=== PATIENT | female | born 1975 | race Caucasian/White ===

== ENCOUNTER → 2016-06-09 | Outpatient (CLI) | payer BC ==
--- NOTE | 2016-06-10 13:35 | ELECTROENCEPHALOGRAPH REPORT ---
REFERRING: Dr. Zaldivar. CLINICAL DIAGNOSIS: Episodic blurred vision, abnormal gait, dizziness and tremor. EEG DIAGNOSIS: Essentially normal during wakefulness. DESCRIPTION OF TRACING: This EEG was done in the laboratory and was of good technical quality. A simultaneous video analysis of patient movement and behavior was obtained. Photic stimulation was performed. Hyperventilation was not. Drowsiness and light sleep were not recorded. Under these conditions, there is evidence for normal appearing background rhythm in the alpha range of up to 10-11 Hz of maximum frequency and 30 microvolts of maximum amplitude. This is maximum in posterior head regions and bilaterally symmetrical. Polymorphic mid frequency theta activity is seen over all head regions without clear focal or regional predominance. Anterior head region maximum bilaterally symmetrical low voltage fast activity in the beta range is present. Photic stimulation provokes a modest driving response without a photomyogenic or photoparoxysmal component. At no time during the waking tracing is there evidence for potentially epileptogenic activity in the form of polyspike or spike wave bursts, focal sharp waves or focal spikes. INTERPRETATION: This electroencephalogram is essentially normal during wakefulness without evidence for focal or generalized encephalopathy and without evidence for potentially epileptogenic activity. MTDD
== END | disposition home or self-care (01) ==
LOC: C.NEUR 14:09
PROVIDERS: ATTEND Family Medicine
DX: H53.8 Other visual disturbances (principal); R26.9 Unspecified abnormalities of gait and mobility

== ENCOUNTER → 2016-10-03 | Outpatient (CLI) | payer BC ==
[2016-10-03 10:08] LABS: C-REACTIVE PROTEIN 1.12 mg/dl (0-0.29); FERRITIN 28.8 ng/ml (8.0-388.0); RHEUMATOID FACTOR < 10.0 U/mL (0-15)
[2016-10-08 14:33] LABS: ALBUMIN 4.2 G/DL (3.8-4.8); ANTI-SS-A <1.0 NEG AI (<1.0 NEG); ANTI-SS-B <1.0 NEG AI (<1.0 NEG); COLLECTION SAMPLE Venous; GAMMA GLOBULIN 0.8 G/DL (0.8-1.7); LEAD BLOOD <1 mcg/dL (<5); VITAMIN B6** TC 926 9.9 ng/mL (2.1-21.7)
--- NOTE | 2016-11-20 07:33 | CODING QUERY MEDICAL NECESSITY ---
SUPPORTING DIAGNOSIS NEEDED A supporting diagnosis is required for the test/procedure performed on this patient in order for us to be reimbursed by the patient's insurance. Please provide a supporting diagnosis for the following test/procedure listed below next to the test name along with your signature. *If there is no additional diagnosis for this patient that would support the following test/procedure please document that below next to the test/procedure. Test(s)/Procedure(s) that require a supporting diagnosis: * VITAMIN B6 DIAGNOSIS: Provider Signature: Date: Thank you Elizabeth Yen [facility] [employer] Once completed, please kindly fax back to [phone] For questions please call [phone]
== END | disposition home or self-care (01) ==
LOC: C.LAB 06:55
PROVIDERS: ATTEND Psychiatry & Neurology Neurology
DX: M79.1 Myalgia (principal); R25.1 Tremor, unspecified; R53.83 Other fatigue; R20.2 Paresthesia of skin; R26.9 Unspecified abnormalities of gait and mobility; G62.9 Polyneuropathy, unspecified

== ENCOUNTER → 2016-10-27 | Outpatient (CLI) | payer BC ==
--- NOTE | 2016-10-27 09:45 | DIAGNOSTIC IMAGING REPORT ---
CHEST 2 VIEWS ROUTINE CLINICAL HISTORY: M79.1 DmqdaktW51.83 PbktiqwY35.2 YtudvgtgyduY87 JlfmcX23.0 Bleed dyspnea COMPARISON STUDY: 10/25/2013 FINDINGS: The bones soft tissues and hemidiaphragms are normal. The cardiomediastinal silhouette is normal. The lungs are clear. The pulmonary vasculature is normal. IMPRESSION: Negative chest. Electronically signed by: Michael Curry M.D. 10/27/2016 9:44 AM Dictated Date/Time: 10/27/2016 9:44 AM
[2016-10-27 12:22] LABS: URINE APPEARANCE CLEAR (CLEAR); URINE BILIRUBIN NEG (NEG); URINE COLOR YELLOW; URINE EPITHELIAL CELL AUTO >30 /lpf (0-5); URINE NITRITE NEG (NEG); URINE PH 5.5 (4.5-7.5); URINE SPECIFIC GRAVITY 1.016 (1.000-1.030); UROBILINOGEN NEG (NEG)
[2016-10-27 12:31] LABS: MANUAL MICROSCOPIC REQUIRED? NO; REVIEW REQ? NO
[2016-10-31 14:38] LABS: ANTI-CENTROMERE AB <1.0 NEG AI (<1.0 NEG); ANTI-SS-A <1.0 NEG AI (<1.0 NEG); ANTI-SS-B <1.0 NEG AI (<1.0 NEG); DNA ds CRITHIDIA NEGATIVE (NEGATIVE); MYELOPEROXIDASE AB <1.0 AI (<1.0); Sm Antibody <1.0 NEG AI (<1.0 NEG)
== END | disposition home or self-care (01) ==
LOC: C.RAD1850 09:34
PROVIDERS: ATTEND Internal Medicine Rheumatology
DX: M79.1 Myalgia (principal); R53.83 Other fatigue; R20.2 Paresthesia of skin; R40.0 Somnolence; R05 Cough; R76.8 Other specified abnormal immunological findings in serum

== ENCOUNTER → 2016-10-29 | Outpatient (CLI) | payer BC ==
--- NOTE | 2016-10-29 12:10 | EEG Procedure Note ---
EEG Procedure Note Date of Service Oct 29, 2016. Start / End Times Start Time: 10:40 AM End Time: 11:01 AM Referring Physician Caroline Joseph History This is a 41-year-old female with a syncopal event. EEG for further evaluation of possible seizure etiology. Description This is a 21 electrode EEG with a single channel dedicated to limited EKG. The electrodes were placed in accordance with the International 10-20 system. At the start of the recording the patient was in an awake state. Background was well organized and composed of symmetric mixed alpha and beta frequencies. There was a symmetric well-formed moderate amplitude 10-11 Hz posterior dominant rhythm that was reactive to eye opening and closure. Hyperventilation was not done. Intermittent photic stimulation at various frequencies produced no abnormalities. Drowsiness was indicated by slowing of the background rhythm and loss of muscle artifact. There was no sleep transients. Interpretation This is a normal awake and drowsy routine EEG. There was no electrographic seizures or epileptiform discharges. Clinical Correlation A normal EEG does not rule out epilepsy if there is a strong clinical suspicion.
== END | disposition home or self-care (01) ==
LOC: C.NEUR 10:30
PROVIDERS: ATTEND Psychiatry & Neurology Neurology
DX: R55 Syncope and collapse (principal)

== ENCOUNTER → 2016-12-04 | Outpatient (CLI) | payer BC ==
[~2016-12-04] MED LIST: GADAVIST IV PRN
--- NOTE | 2016-12-04 12:17 | DIAGNOSTIC IMAGING REPORT ---
BRAIN COMBO FOR IAC CLINICAL HISTORY: 41 years-old Female presenting with dizziness, attention to the internal auditory canals. TECHNIQUE: Multisequence, multiplanar MR imaging of the brain was performed before and after the administration of intravenous contrast. IV contrast: 7.5 milliliters of Gadavist. COMPARISON: None. FINDINGS: Ventricles and sulci normal in size. Brain parenchyma normal in appearance with preserved cabral-white differentiation. No mass effect or midline shift. No hemorrhage or acute territorial infarct. No extra-axial fluid collection. No masslike thickening of the transiting nerves within the internal auditory canals. Normal signal intensity of the inner ears structures. No abnormal enhancement on postcontrast imaging. T2 skull base flow voids preserved. Paranasal sinuses and mastoid air cells clear. Calvarium intact. IMPRESSION: No acute intracranial abnormality. No abnormal enhancement. Normal internal auditory canals. Electronically signed by: Miguel Chawla M.D. 12/04/2016 12:15 PM Dictated Date/Time: 12/04/2016 12:10 PM
== END | disposition home or self-care (01) ==
LOC: C.MRI 10:34
PROVIDERS: ATTEND Psychiatry & Neurology Neurology
DX: R42 Dizziness and giddiness (principal)

== ENCOUNTER → 2016-12-25 | Outpatient (CLI) | payer BC ==
--- NOTE | 2016-12-25 12:16 | DIAGNOSTIC IMAGING REPORT ---
MODIFIED BARIUM SWALLOW CLINICAL HISTORY: Dysphagia. COMPARISON STUDY: No previous studies for comparison. Fluoroscopy time: 1.9 minutes. FINDINGS: The swallowing mechanism was intact within liquids, nectar thick liquids, pudding and crackers with paste. No tracheal aspiration was identified. Laryngeal elevation and epiglottic inversion were normal. IMPRESSION: 1. Intact swallowing mechanism. No tracheal aspiration. 2. Full recommendations by speech pathology to follow. Electronically signed by: Keaton Wells M.D. 12/25/2016 12:15 PM Dictated Date/Time: 12/25/2016 12:10 PM
--- NOTE | 2016-12-26 15:31 | SWALLOWING EVALUATION ---
REFERRING SPEECH PATHOLOGIST: n/a HISTORY: This 41 year-old female was referred for a VFSS at [facility] in order to address c/o persistent globus sensation. The patient has a PMH significant for GERD (since age 17), hyperlipidemia, hypertension, dizziness and a recently diagnosed "connective tissue disease". The patient reports her medication regimen for treating her GERD includes 40 mg Omeprazole and that Zantac was recently added. Despite the medication increase, the patient reports having more NEGRO symptoms. She states that a recent visit to otolaryngology resulted in findings of redness and edema of the throat and vocal folds. Currently the patient's diet level is regular. PROCEDURE: The patient was seen in the Radiology Department of [facility] for the VFSS. Cursory examination of the oral cavity revealed adequate dentition. Movement of the articulators was WNL. The patient was seated upright on a stool and was viewed in both the Anterior-Posterior (A-P) and Lateral planes. Volitional phonation exercises completed in the A-P plane revealed bilateral vocal fold movement and vocal intensity within functional limits. In the lateral plane, the patient was given the following boluses: 1 tsp. thin liquid barium x 2, single swallow thin liquid barium self-presented from a cup, sequential swallows of thin liquid barium self-presented from a cup, 1 tsp. nectar-thick liquid barium, single swallow nectar-thick liquid barium self-presented from a cup, 1 tsp. barium pudding, and 1 club cracker with barium pudding. The patient was then repositioned into the A-P plane and 1 tsp. barium pudding. RESULTS: Oral Stage: No interlabial bolus escape. Lingual control during oral bolus hold, bolus preparation and bolus transport were all WNL. There was no oral bolus retention after the swallow. Initiation of the pharyngeal swallow occurred when the bolus head was at the posterior angle of the ramus. Oral stage of swallow is WNL. Pharyngeal Stage: Velar elevation, laryngeal elevation, anterior hyoid excursion, epiglottic inversion and laryngeal vestibular closure were WNL. Pharyngeal stripping wave and pharyngeal contraction were complete. There was complete distention and duration of PES opening. Tongue base contraction was complete and there was no pharyngeal residue after the swallow. There was no penetration or aspiration during this study and the pharyngeal stage of the swallow is considered to be WNL. Esophageal Stage: No bolus retention as the pudding transited the esophagus. SUMMARY/RECOMMENDATIONS: This patient presents with normal oral-pharyngeal swallow function; HOWEVER she does report persistent and uncomfortable s/s GERD. The following is recommended: 1. Slippery diet as tolerated: choose moist, loose, slippery foods; avoid dry, thick, doughy foods; take medications in a carrier 2. Compensatory Strategies: consider choosing foods and liquids that promote alkalinity and decrease inflammation in the body; avoid icy cold beverages; remain upright 15-30 minutes after meals; keep head of bed elevated AT LEAST 30-degrees at ALL times 3. Consideration of continued f/u with gastroenterology for unresolved GERD. A summary of the results and recommendations was discussed with the patient immediately following the study and she verbalized understanding. Thank you for referral of this patient. Please contact me at if any additional information is needed.
== END | disposition home or self-care (01) ==
LOC: C.RAD 10:46
PROVIDERS: ATTEND Physician Assistant
DX: K21.9 Gastro-esophageal reflux disease without esophagitis (principal); R13.10 Dysphagia, unspecified; Z87.891 Personal history of nicotine dependence

== ENCOUNTER → 2017-01-23 | Outpatient (CLI) | payer BC ==
--- NOTE | 2017-01-23 08:50 | DIAGNOSTIC IMAGING REPORT ---
GI SERIES W/AIR ROUTINE CLINICAL HISTORY: DYSPHAGIA COMPARISON STUDY: None. FLUOROSCOPY TIME: 2.5 minutes. FINDINGS: Esophageal motility was normal. No esophageal mass or stricture was identified. No hiatal hernia was identified. Gastric fold pattern was normal. No gastroesophageal reflux was elicited. Duodenum was unremarkable. Ligament of Treitz was normal position. IMPRESSION: Unremarkable double contrast upper GI series. Electronically signed by: Keaton Wells M.D. 01/23/2017 8:48 AM Dictated Date/Time: 01/23/2017 8:37 AM
== END | disposition home or self-care (01) ==
LOC: C.RAD 08:04
PROVIDERS: ATTEND Internal Medicine Gastroenterology
DX: R13.10 Dysphagia, unspecified (principal)

== ENCOUNTER 2019-04-19 17:33 | Observation (INO) ==
[2019-04-19] MEDS ORDERED: SODIUM CHLORIDE 0.9% 1000ML 1,000 ML IV SCH (17:59)
[2019-04-19] MEDS ORDERED: ONDANSETRON INJ 2 MG/ML 2 ML VIAL IV STA (18:50)
[2019-04-19] MEDS ORDERED: MoRPHine SULFATE 10 MG/ML CARP/VIAL IV STA (18:50)
[2019-04-19] MEDS ORDERED: MoRPHine SULFATE 4 MG/ML 1 ML CARP\\VIAL ONE (18:53)
[2019-04-19] MEDS ORDERED: MoRPHine SULFATE 2 MG/ML CARP ONE (18:53)
[2019-04-19 19:07] LABS: Basophils # (auto) 0.01 K/uL (0-0.2); Basophils % (auto) 0.1 %; Eosinophils # (auto) 0.14 K/uL (0-0.5); Eosinophils % (auto) 1.8 %; Hematocrit (blood only) 40.7 % (37-47); Hemoglobin 13.9 g/dL (12.0-16.0); Immature Granulocytes # (auto) 0.02 K/uL (0.00-0.02); Immature Granulocytes % (auto) 0.3 %; Lymphocytes # (auto) 1.53 K/uL (1.2-3.4); Lymphocytes % (auto) 19.5 %; Mean Corpuscular Hemoglobin 27.9 pg (25-34); Mean Corpuscular Hgb Conc 34.2 g/dL (32-36); Mean Corpuscular Volume 81.6 fL (80-100); Mean Platelet Volume 10.7 fL (7.4-10.4); Monocytes # (auto) 0.48 K/uL (0.11-0.59); Monocytes % (auto) 6.1 %; Neutrophils # (auto) 5.67 K/uL (1.4-6.5); Neutrophils % (auto) 72.2 %; Platelet Count 247 K/uL (130-400); RDW Coefficient of Variation 13.2 % (11.5-14.5); RDW Standard Deviation 39.5 fL (36.4-46.3); Red Blood Count 4.99 M/uL (4.2-5.4); White Blood Count 7.85 K/uL (4.8-10.8)
[2019-04-19 19:16] LABS: Albumin Level 4.1 gm/dl (3.4-5.0); BUN Creatinine Ratio 10.7 (10-20); Calcium 9.3 mg/dl (8.5-10.1); Creatinine Clr Calc Pharmacy 95.5 ml/min; Est GFR (African American) 117.2; Est GFR (Non-African American) 101.1; Potassium 3.4 mmol/L (3.5-5.1)
[2019-04-19 19:19] LABS: Albumin Globulin Ratio 1.1 (0.9-2); Bilirubin,Total 0.6 mg/dl (0.2-1); Globulin 3.6 gm/dl (2.5-4.0); Total Protein 7.7 gm/dl (6.4-8.2)
[2019-04-19 19:22] LABS: Pregnancy Test, Serum Negative (Negative)
[2019-04-19] MEDS ORDERED: IOVERSOL 100ml IV PRN (20:03)
--- NOTE | 2019-04-19 20:30 | CT Scan Report ---
CT OF THE ABDOMEN AND PELVIS WITH CONTRAST CLINICAL HISTORY: Transaminitis with epigastric/right upper quadrant abdominal pain. COMPARISON STUDY: CT of the abdomen and pelvis October 11, 2018. TECHNIQUE: Following IV administration of 93 mL of Optiray-320, axial images of the abdomen and pelvi s were obtained from the lung bases to the proximal femurs. Images were reviewed in the axial, sagitt al, and coronal planes. IV contrast was administered without complication. Automated exposure contro l was utilized for the study. A dose lowering technique was utilized adhering to the principles of A RAYA. CT DOSE: 612.49 mGy.cm FINDINGS: Lung bases are unremarkable. The liver, spleen, adrenal glands, kidneys and pancreas are un remarkable. There is no biliary or pancreatic ductal dilatation. Slight focal wall thickening of the gallbladder fundus is nonspecific but may reflect adenomyomatosis. The gallbladder is not distended. A mildly enlarged portacaval lymph node measures 1.3 cm in short axis diameter. There is no hydroneph rosis. The appendix is surgically absent. No pelvic lymphadenopathy is present. The uterus is surgica lly absent. The ovaries are not enlarged. There is no ascites. There are no suspicious osseous lesion s. IMPRESSION: 1. No acute process within the abdomen or pelvis. 2. Mildly enlarged portacaval lymph node, a nonspecific finding. 3. No bowel obstruction. 4. No biliary or pancreatic ductal dilatation. Electronically signed by: Keaton Wells M.D. 04/19/2019 8:28 PM
[2019-04-19] MEDS ORDERED: POTASSIUM CHLORIDE 20 MEQ TABCR PO STA (20:47)
[2019-04-19 20:57] LABS: Magnesium 2.2 mg/dl (1.8-2.4)
--- NOTE | 2019-04-19 21:16 | Emergency Department Note ---
Entered by Lizbet Riley acting as a scribe for Lionel Ray DO History of Present Illness General Chief complaint: Abdominal Pain Stated complaint: STOMACH PAIN,REFERRED BY GASTRO DOCTOR Source: patient History of Present Illness Onset (ago): day(s) 4 Location: abdomen Severity: severe (states pain is "similar to appendicitis" ) Pain Consistency: + intermittent Maximum Pain Intensity: 10 Relieved By: + none Exacerbated By: + eating Associated symptoms: + denies other symptoms (dysuria ) and + other (nausea) The patient is a 44 year old female with a history of HTN and hyperlipidemia who presents to the Emergency Room with complaints of abdominal pain. The patient states that she has been experiencing intermittent RUQ abdominal pain for awhile but that it began to become extreme 4 days ago associated with nausea. The patient explains that her current pain feels similar to appendicitis and that it is exacerbated with PO intake. She was seen today for the same by Dr. Xavier, [employer] Coordinator who gave her Zofran and recommended that she have a CT done in the ED. Of note, she reports that she got recent blood work and an US that showed "sludge" in her gallbladder. Additionally, she was told that her liver enzymes were in the 500s and too high. The patient's LNMP was in 2012. She denies dysuria and offers no additional concerns at this time. Home Medications Home Medications Medication Instructions Recorded Confirmed Type cholecalciferol (vitamin D3) 2,000 units PO QAM 08/27/18 04/19/19 History [Vitamin D3] coQ10 (ubiquinol) 200 mg PO QAM 08/27/18 04/19/19 History hydrochlorothiazide 25 mg PO QAM 08/27/18 04/19/19 History hydroxychloroquine 400 mg PO QAM 08/27/18 04/19/19 History metoprolol succinate 100 mg PO QAM 08/27/18 04/19/19 History omeprazole 40 mg PO HS 10/11/18 04/19/19 History amitriptyline 10 mg PO HS 04/19/19 04/19/19 History azathioprine 25 mg PO QAM 04/19/19 04/19/19 History Allergies Allergy/AdvReac Type Severity Reaction Status Date / Time hydrocodone Allergy Intermediate Confusion Verified 04/19/19 18:19 [From Lorcet (hydrocodone)] nitrofurantoin Allergy Intermediate Chest Pain Verified 04/19/19 18:19 [From Macrobid] tramadol Allergy Mild Itchiness Verified 04/19/19 18:19 Past Med/Surg History Medical History Hypertension (Chronic) Surgical History History of esophagogastroduodenoscopy (EGD) Hx of appendectomy Hx of hysterectomy Family History Other Cancer Diabetes Heart disease Hypertension Social History Preferred Language: Mongolian Feels Safe at Home: Yes Smoking Status: Former smoker Review of Systems See HPI for pertinent positives & negatives. and A total of 10 systems reviewed and were otherwise negative Physical Exam Vital Signs Vital Signs - 24 hr 04/19/19 17:36 04/19/19 19:02 04/19/19 19:33 Temperature 36.8 C Temperature Source Oral Pulse Rate 81 Pulse Rate [Finger] 71 Respiratory Rate 20 18 Respiratory Effort / Characteristics Non-Labored Spontaneous Non-Labored Spontaneous Respiratory Depth Normal Normal Blood Pressure 124/84 Blood Pressure [Right Arm] 130/87 Blood Pressure Mean 97 Blood Pressure Mean [Right Arm] 101 Blood Pressure Position Sitting Pulse Oximetry 99 97 Oxygen Delivery Method Room Air Room Air Room Air Sepsis Recent Fever Within 48 Hours No Sepsis Action Taken by Nursing No Action Required 04/19/19 21:00 Temperature Temperature Source Pulse Rate Pulse Rate [Finger] 73 Respiratory Rate 18 Respiratory Effort / Characteristics Respiratory Depth Normal Blood Pressure Blood Pressure [Right Arm] 132/88 Blood Pressure Mean Blood Pressure Mean [Right Arm] 102 Blood Pressure Position Pulse Oximetry 98 Oxygen Delivery Method Room Air Sepsis Recent Fever Within 48 Hours Sepsis Action Taken by Nursing GENERAL: alert, well nourished, sitting up in bed, holding RUQ, moderate distress, non-toxic EYE EXAM: normal conjunctiva OROPHARYNX: no exudate, no erythema, lips, buccal mucosa, and tongue normal and mucous membranes are moist NECK: supple, no nuchal rigidity, no adenopathy, non-tender LUNGS: Clear to auscultation. Normal chest wall mechanics HEART: no murmurs, S1 normal and S2 normal ABDOMEN: abdomen soft, tenderness to palpation RUQ, normo-active bowel sounds, no masses, no rebound or guarding. BACK: Back is symmetrical on inspection and there is no deformity, no midline tenderness, no CVA tenderness. SKIN: no rashes and no bruising UPPER EXTREMITIES: upper extremities are grossly normal. LOWER EXTREMITIES: No pitting edema. NEURO EXAM: Normal sensorium, cranial nerves II-XII grossly intact, normal speech, no gross weakness of arms, no gross weakness of legs. Course Course ED COURSE: Vital signs were reviewed and showed hypertension. The patients medical record was reviewed The above diagnostic studies were performed and reviewed. ED treatments and interventions as stated above. 1743: The patient was evaluated in room A09. A complete history and physical examination was performed. 1851: I checked on the patient and updated her. She states she can have morphine. 2025: I re-evaluated the patient and updated her. 2114: Upon reevaluation, the patient is resting.I discussed my findings with the patient and he understands and agrees with the treatment plan. Based on the patients age, coexisting illnesses, exam and lab findings the dec ision to treat as an inpatient was made. The patient remained stable while under my care. The patient will be evaluated for further management by Dr. Calvo, [facility] Hospitalist. Administered Medications Ioversol (Optiray 320 100ml) 93 ml IV ONCE PRN PRN Reason: Interaction Checking Stop: 04/23/19 20:02 Last Admin: 04/19/19 20:04 Dose: 93 ml Documented by: [id number] Discontinued Medications Sodium Chloride (Nss 1000ml) 1,000 mls @ 999 mls/hr IV .Q1H1M DAGO Stop: 04/19/19 18:59 Last Infusion: 04/19/19 20:00 Dose: 0 mls/hr Documented by: [id number] Admin: 04/19/19 18:55 Dose: 999 mls/hr Documented by: [id number] Morphine Sulfate (Morphine Sulfate) 6 mg IV NOW STA Stop: 04/19/19 18:51 Last Admin: 04/19/19 18:55 Dose: Not Given Documented by: [id number] Morphine Sulfate (Morphine Sulfate) Confirm Administered Dose 4 mg .ROUTE .STK- MED ONE Stop: 04/19/19 18:54 Last Admin: 04/19/19 18:54 Dose: 4 mg Documented by: [id number] Morphine Sulfate (Morphine Sulfate) Confirm Administered Dose 2 mg .ROUTE .STK- MED ONE Stop: 04/19/19 18:54 Last Admin: 04/19/19 18:55 Dose: 2 mg Documented by: [id number] Ondansetron HCl (Zofran) 4 mg IV NOW STA Stop: 04/19/19 18:51 Last Admin: 04/19/19 18:55 Dose: 4 mg Documented by: [id number] Potassium Chloride (Klor-Con M20) 20 meq PO NOW STA Stop: 04/19/19 20:48 Last Admin: 04/19/19 21:04 Dose: 20 meq Documented by: [id number] Medical Decision Making Differential Diagnosis Differential diagnoses includes but is not limited to gastritis, peptic ulcer disease, GERD, gallbladder disease, pancreatitis, small bowel obstruction, acute coronary syndrome, pericarditis, ischemic bowel, irritable bowel disease, irritable bowel syndrome, appendicitis, diverticulitis, malignancy, hernia, urinary tract infection, torsion, /ectopic , perforation, trauma, infectious. Medical Records Attestation: I reviewed the patient's medical records. Home Medications Current Medication List: was personally reviewed by me Laboratory Data Attestation: I reviewed the patient's lab results. Result diagrams: 04/19/19 18:45 04/19/19 18:45 Lab Results 04/19/19 04/19/19 04/19/19 Range/Units 18:45 18:45 18:45 WBC 7.85 (4.8-10.8) K/uL RBC 4.99 (4.2-5.4) M/uL Hgb 13.9 (12.0-16.0) g/dL Hct 40.7 (37-47) % MCV 81.6 (80-100) fL MCH 27.9 (25-34) pg MCHC 34.2 (32-36) g/dL RDW Std Deviation 39.5 (36.4-46.3) fL RDW Coeff of Jose 13.2 (11.5-14.5) % Plt Count 247 (130-400) K/uL MPV 10.7 H (7.4-10.4) fL Immature Gran % (Auto) 0.3 % Neut % (Auto) 72.2 % Lymph % (Auto) 19.5 % [place] % (Auto) 6.1 % Eos % (Auto) 1.8 % Baso % (Auto) 0.1 % Immature Gran # (Auto) 0.02 (0.00-0.02) K/uL Neut # (Auto) 5.67 (1.4-6.5) K/uL Lymph # (Auto) 1.53 (1.2-3.4) K/uL [place] # (Auto) 0.48 (0.11-0.59) K/uL Eos # (Auto) 0.14 (0-0.5) K/uL Baso # (Auto) 0.01 (0-0.2) K/uL Sodium 139 (136-145) mmol/L Potassium 3.4 L (3.5-5.1) mmol/L Chloride 104 (98-107) mmol/L Carbon Dioxide 28 (21-32) mmol/L Anion Gap 7.0 (3-11) BUN 8 (7-18) mg/dl Creatinine 0.72 (0.6-1.2) mg/dl Est Cr Clr Drug Dosing 95.5 ml/min Est GFR ( Amer) 117.2 Est GFR (Non-Af Amer) 101.1 BUN/Creatinine Ratio 10.7 (10-20) Glucose 82 (70-99) mg/dl Calcium 9.3 (8.5-10.1) mg/dl Magnesium 2.2 (1.8-2.4) mg/dl Total Bilirubin 0.6 (0.2-1) mg/dl AST 430 H (15-37) U/L ALT 688 H (12-78) U/L Alkaline Phosphatase 207 H (45-117) U/L Total Protein 7.7 (6.4-8.2) gm/dl Albumin 4.1 (3.4-5.0) gm/dl Globulin 3.6 (2.5-4.0) gm/dl Albumin/Globulin Ratio 1.1 (0.9-2) Lipase 170 (73-393) U/L HCG, Qual Negative (Negative) Hep Bs Antigen (Neg) 04/19/19 Range/Units 18:45 WBC (4.8-10.8) K/uL RBC (4.2-5.4) M/uL Hgb (12.0-16.0) g/dL Hct (37-47) % MCV (80-100) fL MCH (25-34) pg MCHC (32-36) g/dL RDW Std Deviation (36.4-46.3) fL RDW Coeff of Jose (11.5-14.5) % Plt Count (130-400) K/uL MPV (7.4-10.4) fL Immature Gran % (Auto) % Neut % (Auto) % Lymph % (Auto) % [place] % (Auto) % Eos % (Auto) % Baso % (Auto) % Immature Gran # (Auto) (0.00-0.02) K/uL Neut # (Auto) (1.4-6.5) K/uL Lymph # (Auto) (1.2-3.4) K/uL [place] # (Auto) (0.11-0.59) K/uL Eos # (Auto) (0-0.5) K/uL Baso # (Auto) (0-0.2) K/uL Sodium (136-145) mmol/L Potassium (3.5-5.1) mmol/L Chloride (98-107) mmol/L Carbon Dioxide (21-32) mmol/L Anion Gap (3-11) BUN (7-18) mg/dl Creatinine (0.6-1.2) mg/dl Est Cr Clr Drug Dosing ml/min Est GFR ( Amer) Est GFR (Non-Af Amer) BUN/Creatinine Ratio (10-20) Glucose (70-99) mg/dl Calcium (8.5-10.1) mg/dl Magnesium (1.8-2.4) mg/dl Total Bilirubin (0.2-1) mg/dl AST (15-37) U/L ALT (12-78) U/L Alkaline Phosphatase (45-117) U/L Total Protein (6.4-8.2) gm/dl Albumin (3.4-5.0) gm/dl Globulin (2.5-4.0) gm/dl Albumin/Globulin Ratio (0.9-2) Lipase (73-393) U/L HCG, Qual (Negative) Hep Bs Antigen Neg (Neg) Imaging Data Radiologist's Impression: Radiology results as stated below per my review and the radiologist's interpretation: CT OF THE ABDOMEN AND PELVIS WITH CONTRAST CLINICAL HISTORY: Transaminitis with epigastric/right upper quadrant abdominal pain. COMPARISON STUDY: CT of the abdomen and pelvis October 11, 2018. TECHNIQUE: Following IV administration of 93 mL of Optiray-320, axial images of the abdomen and pelvis were obtained from the lung bases to the proximal femurs. Images were reviewed in the axial, sagittal, and coronal planes. IV contrast was administered without complication. Automated exposure control was utilized for the study. A dose lowering technique was utilized adhering to the principles of ALARA. CT DOSE: 612.49 mGy.cm FINDINGS: Lung bases are unremarkable. The liver, spleen, adrenal glands, kidneys and pancreas are unremarkable. There is no biliary or pancreatic ductal dilatation. Slight focal wall thickening of the gallbladder fundus is nonspecific but may reflect adenomyomatosis. The gallbladder is not distended. A mildly enlarged portacaval lymph node measures 1.3 cm in short axis diameter. There is no hydronephrosis. The appendix is surgically absent. No pelvic l ymphadenopathy is present. The uterus is surgically absent. The ovaries are not enlarged. There is no ascites. There are no suspicious osseous lesions. IMPRESSION: 1. No acute process within the abdomen or pelvis. 2. Mildly enlarged portacaval lymph node, a nonspecific finding. 3. No bowel obstruction. 4. No biliary or pancreatic ductal dilatation. Electronically signed by: Keaton Wells M.D. 04/19/2019 8:28 PM Blood Pressure Blood Pressure Findings: Elevated blood pressure Blood Pressure Disposition: elevated BP felt to be situational MDM Narrative Patient is a 44-year-old female who presents the ER referred in by gastroenterology for right upper quadrant abdominal pain associated with a transaminitis. Patient had a EGD, EUS and MRI as an outpatient which were per report negative. Patient has been having this intermittent pain but is worse tonight. Blood work was done as an outpatient showed transaminitis. IV was established blood work was obtained. Labs show no significant leukocytosis or anemia. BMP with mild hypokalemia. LFTs with an ALT of 688 and an AST of 430. Alk phos was slightly elevated at 207. hCG and lipase were negative. CT abdomen pelvis showed no acute pathology. Hepatitis panel was was pending. Unclear if this was secondary to choledocholithiasis as she had sludge and this has now passed versus hepatitis versus other pathology. Discussed with the hospitalist for observation as she will need to be evaluated by GI. Again patient was given IV fluids IV morphine updated at bedside and was resting comfortable upon admission. Impression & Plan Abdominal pain, Hepatitis Discharge Plan Visit Data Chief Complaint: Abdominal Pain Stated Complaint: STOMACH PAIN,REFERRED BY GASTRO DOCTOR ED Provider: Lionel Ray Discharge Problem: Abdominal pain, Hepatitis Patient Disposition: Being Evaluated by Hospitalist Forms Stand Alone Forms: Call Back Authorization, My [facility] Prescriptions Prescriptions: No Action omeprazole 40 mg Capsule,Delayed Release(Dr/Ec) 40 mg PO HS RF: 0 metoprolol succinate 100 mg Tablet Extended Release 24 Hr 100 mg PO QAM RF: 0 hydrochlorothiazide 25 mg Tablet 25 mg PO QAM RF: 0 hydroxychloroquine 200 mg tablet 400 mg PO QAM RF: 0 cholecalciferol (vitamin D3) [Vitamin D3] 2,000 unit Capsule 2,000 units PO QAM RF: 0 coQ10 (ubiquinol) 200 mg Capsule 200 mg PO QAM RF: 0 azathioprine 50 mg tablet 25 mg PO QAM RF: 0 amitriptyline 10 mg tablet 10 mg PO HS RF: 0 Referrals Referrals: Houston Sutton II, DO [Primary Care Provider] - Discharge Problem: Abdominal pain Qualifiers: Abdominal location: right upper quadrant Qualified Code(s): R10.11 - Right upper quadrant pain The scribe's documentation has been prepared under my direction and personally reviewed by me in its entirety. I confirm that the note above accurately reflects all work, treatment, procedures, and medical decision making performed by me.
[2019-04-19] MEDS ORDERED: PROMETHAZINE HCL 12.5 MG in SODIUM CHLORIDE 0.9% 50 ML IV PRN (21:22)
[2019-04-19 21:30] LABS: Hepatitis B Surface Antigen Neg (Neg)
[2019-04-19 21:40] LABS: Appearance Urine Clear (Clear); Bacteria Urine Automated Negative (Negative); Bilirubin Urine Negative (Negative); Blood Urine Trace (Negative); Cast Urine Automated 0 /lpf (0-5); Color Urine Yellow; Glucose Urine UA Negative (Negative); Ketones Urine Trace (Negative); Leukocyte Esterase Urine Negative (Negative); Nitrite Urine Negative (Negative); Protein Urine Negative (Negative); RBC Urine Automated 0-4 /hpf (0-4); Specific Gravity Urine > 1.045 (1.000-1.030); Urobilinogen Urine Negative (Negative)
[2019-04-19] MEDS ORDERED: PROMETHAZINE 12.5 MG/50.5 ML NSS IV ONE (21:42)
[2019-04-19 21:58] LABS: Hepatitis C IgG 13Yrs+Old_Rflx Neg (Neg)
--- NOTE | 2019-04-19 22:16 | History & Physical Report ---
Date of Service April 19, 2019 Assessment & Plan (1) Abdominal pain: With abnormal LFTs Rule out cholecystitis/choledocholithiasis Hypertension, BP on the lower side Diarrhea rule out C. 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 difficile further management pending work-up results Prophylaxis SCDs RE possible procedure Full code. History of Present Illness Chief Complaint: Abdominal pain Primary Care Provider: Houston Sutton II, DO History obtained from patient, family, and records. 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 2 months history of epigastric discomfort waxing and waning throughout the day with alternating constipation/diarrhea. Outpatient GI work-up led to EGD/EUS with concern for gallbladder sludge versus stone versus polyp. Outpatient general surgery consultation. Outpatient HIDA scan recommended. Recent Cipro Rx for small intestine bacterial overgrowth last week. Last 4 days patient had worsening of upper achy abdominal pain with nausea, nonbloody diarrhea, emesis. No fever, no chills. Patient seen at [facility] GI office today. Outpatient labs ordered. LFTs noted to be markedly elevated. Patient directed to ER by GI office. 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 Allergies Allergy/AdvReac Type Severity Reaction Status Date / Time hydrocodone Allergy Intermediate Confusion Verified 04/19/19 18:19 [From Lorcet (hydrocodone)] nitrofurantoin Allergy Intermediate Chest Pain Verified 04/19/19 18:19 [From Macrobid] tramadol Allergy Mild Itchiness Verified 04/19/19 18:19 Home Medications Home Medications Medication Instructions Recorded Confirmed Type cholecalciferol (vitamin D3) 2,000 units PO QAM 08/27/18 04/19/19 History [Vitamin D3] coQ10 (ubiquinol) 200 mg PO QAM 08/27/18 04/19/19 History hydrochlorothiazide 25 mg PO QAM 08/27/18 04/19/19 History hydroxychloroquine 400 mg PO QAM 08/27/18 04/19/19 History metoprolol succinate 100 mg PO QAM 08/27/18 04/19/19 History omeprazole 40 mg PO HS 10/11/18 04/19/19 History amitriptyline 10 mg PO HS 04/19/19 04/19/19 History azathioprine 25 mg PO QAM 04/19/19 04/19/19 History Past Med/Surg History Medical History Hypertension (Chronic) Surgical History History of esophagogastroduodenoscopy (EGD) Hx of appendectomy Hx of hysterectomy Family History Other Cancer Diabetes Heart disease Hypertension Social History Preferred Language: Setswana Beliefs That Will Affect Care: None Current Living Situation: Spouse Current Living Situation Comment: lives in two story home with Other Information That Helps Us Care for You: No Feels Safe at Home: Yes Safety Concerns: Feels Safe At This Time Smoking Status: Former smoker Hx Alcohol Use: No Hx Substance Use: No Review of Systems Review of Systems: As per HPI, all 10 systems reviewed, all other ROS negative Physical Exam Physical Exam: GENERAL: uncomfortable, obese, no respiratory distress SKIN: Normal color, warm HEENT: [place] palpebral conjunctivae, no ptosis, dry buccal mucosa NECK : Supple, short neck, no tenderness CHEST : CTA, no tenderness HEART : RRR, no obvious murmurs ABDOMEN: Some distention, epigastric tenderness EXTREMITIES : No LE swelling/tenderness, no other conspicuous deformities noted NEUROLOGIC : Coherent, no facial asymmetry, no other gross focality Results & Data Vital Signs (Past 12 Hours) Vital Signs Temp Pulse Pulse Resp BP BP Pulse Ox 04/19/19 21:00 73 18 132/88 98 04/19/19 19:33 71 18 130/87 97 04/19/19 17:36 36.8 C 81 20 124/84 99 Laboratory Results Laboratory Results WBC 7.85 K/uL (4.8-10.8) 04/19/19 18:45 RBC 4.99 M/uL (4.2-5.4) 04/19/19 18:45 Hgb 13.9 g/dL (12.0-16.0) 04/19/19 18:45 Hct 40.7 % (37-47) 04/19/19 18:45 MCV 81.6 fL (80-100) 04/19/19 18:45 MCH 27.9 pg (25-34) 04/19/19 18:45 MCHC 34.2 g/dL (32-36) 04/19/19 18:45 RDW Std Deviation 39.5 fL (36.4-46.3) 04/19/19 18:45 RDW Coeff of Jose 13.2 % (11.5-14.5) 04/19/19 18:45 Plt Count 247 K/uL (130-400) 04/19/19 18:45 MPV 10.7 fL (7.4-10.4) H 04/19/19 18:45 Immature Gran % (Auto) 0.3 % 04/19/19 18:45 Neut % (Auto) 72.2 % 04/19/19 18:45 Lymph % (Auto) 19.5 % 04/19/19 18:45 [place] % (Auto) 6.1 % 04/19/19 18:45 Eos % (Auto) 1.8 % 04/19/19 18:45 Baso % (Auto) 0.1 % 04/19/19 18:45 Immature Gran # (Auto) 0.02 K/uL (0.00-0.02) 04/19/19 18:45 Neut # (Auto) 5.67 K/uL (1.4-6.5) 04/19/19 18:45 Lymph # (Auto) 1.53 K/uL (1.2-3.4) 04/19/19 18:45 [place] # (Auto) 0.48 K/uL (0.11-0.59) 04/19/19 18:45 Eos # (Auto) 0.14 K/uL (0-0.5) 04/19/19 18:45 Baso # (Auto) 0.01 K/uL (0-0.2) 04/19/19 18:45 Sodium 139 mmol/L (136-145) 04/19/19 18:45 Potassium 3.4 mmol/L (3.5-5.1) L 04/19/19 18:45 Chloride 104 mmol/L (98-107) 04/19/19 18:45 Carbon Dioxide 28 mmol/L (21-32) 04/19/19 18:45 Anion Gap 7.0 (3-11) 04/19/19 18:45 BUN 8 mg/dl (7-18) 04/19/19 18:45 Creatinine 0.72 mg/dl (0.6-1.2) 04/19/19 18:45 Est Cr Clr Drug Dosing 95.5 ml/min 04/19/19 18:45 Est GFR ( Amer) 117.2 04/19/19 18:45 Est GFR (Non-Af Amer) 101.1 04/19/19 18:45 BUN/Creatinine Ratio 10.7 (10-20) 04/19/19 18:45 Glucose 82 mg/dl (70-99) 04/19/19 18:45 Calcium 9.3 mg/dl (8.5-10.1) 04/19/19 18:45 Magnesium 2.2 mg/dl (1.8-2.4) 04/19/19 18:45 Total Bilirubin 0.6 mg/dl (0.2-1) 04/19/19 18:45 AST 430 U/L (15-37) H 04/19/19 18:45 ALT 688 U/L (12-78) H 04/19/19 18:45 Alkaline Phosphatase 207 U/L (45-117) H 04/19/19 18:45 Total Protein 7.7 gm/dl (6.4-8.2) 04/19/19 18:45 Albumin 4.1 gm/dl (3.4-5.0) 04/19/19 18:45 Globulin 3.6 gm/dl (2.5-4.0) 04/19/19 18:45 Albumin/Globulin Ratio 1.1 (0.9-2) 04/19/19 18:45 Lipase 170 U/L (73-393) 04/19/19 18:45 HCG, Qual Negative (Negative) 04/19/19 18:45 Urine Color Yellow 04/19/19 21:14 Urine Appearance Clear (Clear) 04/19/19 21:14 Urine pH 6.0 (4.5-7.5) 04/19/19 21:14 Ur Specific [place] > 1.045 (1.000-1.030) H 04/19/19 21:14 Urine Protein Negative (Negative) 04/19/19 21:14 Urine Glucose (UA) Negative (Negative) 04/19/19 21:14 Urine Ketones Trace (Negative) H 04/19/19 21:14 Urine Blood Trace (Negative) H 04/19/19 21:14 Urine Nitrite Negative (Negative) 04/19/19 21:14 Urine Bilirubin Negative (Negative) 04/19/19 21:14 Urine Urobilinogen Negative (Negative) 04/19/19 21:14 Ur Leukocyte Esterase Negative (Negative) 04/19/19 21:14 Urine WBC (Auto) 1-5 /hpf (0-5) 04/19/19 21:14 Urine RBC (Auto) 0-4 /hpf (0-4) 04/19/19 21:14 U Hyaline Cast (Auto) 0 /lpf (0-5) 04/19/19 21:14 U Epithel Cells (Auto) 10-20 /lpf (0-5) H 04/19/19 21:14 Urine Bacteria (Auto) Negative (Negative) 04/19/19 21:14 POC Ur Test NEG (NEG) 04/19/19 22:06 Hep Bs Antigen Neg (Neg) 04/19/19 18:45 Hepatitis C Antibody Neg (Neg) 04/19/19 18:[address] abdomen pelvis: Lung bases are unremarkable. The liver, spleen, adrenal glands, kidneys and pancreas are unremarkable. There is no biliary or pancreatic ductal dilatation. Slight focal wall thickening of the gallbladder fundus is nonspecific but may reflect adenomyomatosis. The gallbladder is not distended. A mildly enlarged portacaval lymph node measures 1.3 cm in short axis diameter. There is no hydronephrosis. The appendix is surgically absent. No pelvic lymphadenopathy is present. The uterus is surgically absent. The ovaries are not enlarged. There is no ascites. There are no suspicious osseous lesions. (1) Abdominal pain Abdominal location: right upper quadrant Qualified Code(s): R10.11 - Right upper quadrant pain
[2019-04-19] MEDS ORDERED: OXYCODONE HCL IR 5 MG TAB (IMMEDIATE RELEASE) PO PRN (23:02)
[2019-04-19] MEDS ORDERED: ACETAMINOPHEN 325 MG TAB PO PRN (23:02)
[2019-04-19] MEDS ORDERED: MoRPHine SULFATE 4 MG/ML 1 ML CARP\\VIAL IV PRN (23:02)
[2019-04-19] MEDS ORDERED: LORazepam 0.5 MG/1 ML VIAL IV PRN (23:02)
--- NOTE | 2019-04-19 23:04 | Ultrasound Report ---
US gallbladder CLINICAL HISTORY: Abdominal pain. COMPARISON STUDY: CT of the abdomen and pelvis April 19, 2019 at 8:02 PM. FINDINGS: Liver is sonographically normal. There is no biliary ductal dilatation. The common bile merlin t measures 5 mm in caliber. No gallstones are noted. There is mild focal wall thickening of the gallb ladder at the level the fundus, measuring 4 mm. Sonographic Canela sign was reported. No pericholecys tic fluid is noted. There is no right hydronephrosis. The pancreas is unremarkable by sonography. The tail is slightly obscured. IMPRESSION: 1. No gallstones or biliary ductal dilatation. 2. Sonographic Canela sign reported. Mild focal wall thickening of the gallbladder fundus may reflect adenomyomatosis. The CT and sonographic findings do not strongly suggest acute cholecystitis however if persistent right upper quadrant pain, a hepatobiliary scan is recommended. Electronically signed by: Keaton Wells M.D. 04/19/2019 11:03 PM
[2019-04-19] MEDS ORDERED: POTASSIUM CHLORIDE 40 MEQ in SODIUM CHLORIDE 0.9% 1000ML 1,000 ML IV SCH (23:45)
[2019-04-19] MEDS: KETOROLAC TROMETHAMINE 15 MG/ML VIAL IV PRN (23:47)
[2019-04-20] MEDS ORDERED: D5W AND LACTATED RINGERS 1,000 ML IV SCH (01:00)
[2019-04-20] MEDS ORDERED: DiphenhydrAMINE HCL 50 MG/ML VIAL IV STA (05:23)
[2019-04-20] MEDS ORDERED: PANTOprazole 40 MG TAB PO SCH ×2 (05:30→21:00)
--- NOTE | 2019-04-20 06:53 | Hospitalist Progress Note ---
Date of Service April 20, 2019 Assessment & Plan (1) Abdominal pain: With abnormal LFTs AST in 400s, ALT in 600s Rule out cholecystitis/choledocholithiasis GI and general surgery consulted CT abdomen pelvis ordered, ultrasound of gallbladder obtained as well as MRCP. No signs of choledocholithiasis. Gallbladder distended, possible sludge, she could possibly have some element of biliary colic. She does not have significant acute cholecystitis. Elevated liver enzymes not likely secondary to gallbladder. Dr. Sun, (general surgery) plans to see patient as outpatient for possible cholecystectomy Per GI, elevated LFTs/hepatitis likely secondary to Imuran use Imuran was stopped, blood work rechecked, LFTs trending down Hepatitis panel ordered as well, patient will follow-up with results as outpatient in GI clinic Discussed between general surgery and GI, plan to discharge patient home, she will obtain blood work, to follow-up on LFTs this Thursday (04/22/2019) and following Thursday. Results will be sent to GI office. 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 Patient is feeling better already this afternoon, pain much decreased. SLE on Imuran - stopped Imuran d/y concern of above Hypertension, BP at goal Diarrhea rule out C. 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 Subjective Patient is lying in bed, in no acute distress. Family at the bedside. Denies any fevers, chills, chest pain, shortness of breath, nausea or vomiting. Complains of epigastric/right upper quadrant abdominal tenderness, which she says gets worse with eating. Review of Systems Review of Systems: All systems reviewed & are unremarkable except as noted in HPI & below Constitutional: no fever, no chills and no fatigue Respiratory: no cough, no chest congestion, no dyspnea and no dyspnea on exertion Cardiovascular: no chest pain, no palpitations and no edema Gastrointestinal: + abdominal pain (epigastric/ RUQ area); no nausea and no vomiting Physical Exam Physical Exam: GENERAL: Young female lying in bed, in no acute distress HEENT: Normocephalic, atraumatic, EOMI, PERRL, anicteric sclerae NECK : Supple, normal to inspection HEART : RRR, no obvious murmurs LUNGS: Clear to auscultation bilaterally, no wheezing rhonchi or crackles noted ABDOMEN: Positive bowel sounds, some distention, tenderness to palpation in right upper quadrant and epigastric area EXTREMITIES : No LE swelling/tenderness, moves all 4 extremities spontaneously and without difficulty SKIN: warm, dry, no rashes or lesions NEUROLOGIC : Alert and oriented x3, no facial asymmetry, speech fluent, moves all 4 extremities spontaneously, no sensory loss noted Results & Data Vital Signs (Past 12 Hours) Vital Signs Temp Pulse Resp BP BP BP Pulse Ox 04/19/19 23:11 36.8 C 69 18 101/64 93 04/19/19 23:00 36.5 C 69 16 128/53 L 98 04/19/19 22:41 109/64 04/19/19 21:00 73 18 132/88 98 04/19/19 19:33 71 18 130/87 97 Laboratory Results 04/19/19 04/19/19 04/19/19 Range/Units 22:06 21:14 18:45 WBC (4.8-10.8) K/uL RBC (4.2-5.4) M/uL Hgb (12.0-16.0) g/dL Hct (37-47) % MCV (80-100) fL MCH (25-34) pg MCHC (32-36) g/dL RDW Std Deviation (36.4-46.3) fL RDW Coeff of Jose (11.5-14.5) % Plt Count (130-400) K/uL MPV (7.4-10.4) fL Immature Gran % (Auto) % Neut % (Auto) % Lymph % (Auto) % [place] % (Auto) % Eos % (Auto) % Baso % (Auto) % Immature Gran # (Auto) (0.00-0.02) K/uL Neut # (Auto) (1.4-6.5) K/uL Lymph # (Auto) (1.2-3.4) K/uL [place] # (Auto) (0.11-0.59) K/uL Eos # (Auto) (0-0.5) K/uL Baso # (Auto) (0-0.2) K/uL Sodium (136-145) mmol/L Potassium (3.5-5.1) mmol/L Chloride (98-107) mmol/L Carbon Dioxide (21-32) mmol/L Anion Gap (3-11) BUN (7-18) mg/dl Creatinine (0.6-1.2) mg/dl Est Cr Clr Drug Dosing ml/min Est GFR ( Amer) Est GFR (Non-Af Amer) BUN/Creatinine Ratio (10-20) Glucose (70-99) mg/dl Calcium (8.5-10.1) mg/dl Magnesium (1.8-2.4) mg/dl Total Bilirubin (0.2-1) mg/dl AST (15-37) U/L ALT (12-78) U/L Alkaline Phosphatase (45-117) U/L Total Protein (6.4-8.2) gm/dl Albumin (3.4-5.0) gm/dl Globulin (2.5-4.0) gm/dl Albumin/Globulin Ratio (0.9-2) Lipase (73-393) U/L HCG, Qual (Negative) Urine Color Yellow Urine Appearance Clear (Clear) Urine pH 6.0 (4.5-7.5) Ur Specific [place] > 1.045 H (1.000-1.030) Urine Protein Negative (Negative) Urine Glucose (UA) Negative (Negative) Urine Ketones Trace H (Negative) Urine Blood Trace H (Negative) Urine Nitrite Negative (Negative) Urine Bilirubin Negative (Negative) Urine Urobilinogen Negative (Negative) Ur Leukocyte Esterase Negative (Negative) Urine WBC (Auto) 1-5 (0-5) /hpf Urine RBC (Auto) 0-4 (0-4) /hpf U Hyaline Cast (Auto) 0 (0-5) /lpf U Epithel Cells (Auto) 10-20 H (0-5) /lpf Urine Bacteria (Auto) Negative (Negative) POC Ur Test NEG (NEG) Hepatitis A IgM Ab Pending Hep Bs Antigen (Neg) Hep B Core IgM Ab Pending Hepatitis C Antibody (Neg) 04/19/19 04/19/19 04/19/19 Range/Units 18:45 18:45 18:45 WBC (4.8-10.8) K/uL RBC (4.2-5.4) M/uL Hgb (12.0-16.0) g/dL Hct (37-47) % MCV (80-100) fL MCH (25-34) pg MCHC (32-36) g/dL RDW Std Deviation (36.4-46.3) fL RDW Coeff of Jose (11.5-14.5) % Plt Count (130-400) K/uL MPV (7.4-10.4) fL Immature Gran % (Auto) % Neut % (Auto) % Lymph % (Auto) % [place] % (Auto) % Eos % (Auto) % Baso % (Auto) % Immature Gran # (Auto) (0.00-0.02) K/uL Neut # (Auto) (1.4-6.5) K/uL Lymph # (Auto) (1.2-3.4) K/uL [place] # (Auto) (0.11-0.59) K/uL Eos # (Auto) (0-0.5) K/uL Baso # (Auto) (0-0.2) K/uL Sodium 139 (136-145) mmol/L Potassium 3.4 L (3.5-5.1) mmol/L Chloride 104 (98-107) mmol/L Carbon Dioxide 28 (21-32) mmol/L Anion Gap 7.0 (3-11) BUN 8 (7-18) mg/dl Creatinine 0.72 (0.6-1.2) mg/dl Est Cr Clr Drug Dosing 95.5 ml/min Est GFR ( Amer) 117.2 Est GFR (Non-Af Amer) 101.1 BUN/Creatinine Ratio 10.7 (10-20) Glucose 82 (70-99) mg/dl Calcium 9.3 (8.5-10.1) mg/dl Magnesium 2.2 (1.8-2.4) mg/dl Total Bilirubin 0.6 (0.2-1) mg/dl AST 430 H (15-37) U/L ALT 688 H (12-78) U/L Alkaline Phosphatase 207 H (45-117) U/L Total Protein 7.7 (6.4-8.2) gm/dl Albumin 4.1 (3.4-5.0) gm/dl Globulin 3.6 (2.5-4.0) gm/dl Albumin/Globulin Ratio 1.1 (0.9-2) Lipase 170 (73-393) U/L HCG, Qual Negative (Negative) Urine Color Urine Appearance (Clear) Urine pH (4.5-7.5) Ur Specific [place] (1.000-1.030) Urine Protein (Negative) Urine Glucose (UA) (Negative) Urine Ketones (Negative) Urine Blood (Negative) Urine Nitrite (Negative) Urine Bilirubin (Negative) Urine Urobilinogen (Negative) Ur Leukocyte Esterase (Negative) Urine WBC (Auto) (0-5) /hpf Urine RBC (Auto) (0-4) /hpf U Hyaline Cast (Auto) (0-5) /lpf U Epithel Cells (Auto) (0-5) /lpf Urine Bacteria (Auto) (Negative) POC Ur Test (NEG) Hepatitis A IgM Ab Hep Bs Antigen Neg (Neg) Hep B Core IgM Ab Hepatitis C Antibody Neg (Neg) 04/19/19 Range/Units 18:45 WBC 7.85 (4.8-10.8) K/uL RBC 4.99 (4.2-5.4) M/uL Hgb 13.9 (12.0-16.0) g/dL Hct 40.7 (37-47) % MCV 81.6 (80-100) fL MCH 27.9 (25-34) pg MCHC 34.2 (32-36) g/dL RDW Std Deviation 39.5 (36.4-46.3) fL RDW Coeff of Jose 13.2 (11.5-14.5) % Plt Count 247 (130-400) K/uL MPV 10.7 H (7.4-10.4) fL Immature Gran % (Auto) 0.3 % Neut % (Auto) 72.2 % Lymph % (Auto) 19.5 % [place] % (Auto) 6.1 % Eos % (Auto) 1.8 % Baso % (Auto) 0.1 % Immature Gran # (Auto) 0.02 (0.00-0.02) K/uL Neut # (Auto) 5.67 (1.4-6.5) K/uL Lymph # (Auto) 1.53 (1.2-3.4) K/uL [place] # (Auto) 0.48 (0.11-0.59) K/uL Eos # (Auto) 0.14 (0-0.5) K/uL Baso # (Auto) 0.01 (0-0.2) K/uL Sodium (136-145) mmol/L Potassium (3.5-5.1) mmol/L Chloride (98-107) mmol/L Carbon Dioxide (21-32) mmol/L Anion Gap (3-11) BUN (7-18) mg/dl Creatinine (0.6-1.2) mg/dl Est Cr Clr Drug Dosing ml/min Est GFR ( Amer) Est GFR (Non-Af Amer) BUN/Creatinine Ratio (10-20) Glucose (70-99) mg/dl Calcium (8.5-10.1) mg/dl Magnesium (1.8-2.4) mg/dl Total Bilirubin (0.2-1) mg/dl AST (15-37) U/L ALT (12-78) U/L Alkaline Phosphatase (45-117) U/L Total Protein (6.4-8.2) gm/dl Albumin (3.4-5.0) gm/dl Globulin (2.5-4.0) gm/dl Albumin/Globulin Ratio (0.9-2) Lipase (73-393) U/L HCG, Qual (Negative) Urine Color Urine Appearance (Clear) Urine pH (4.5-7.5) Ur Specific [place] (1.000-1.030) Urine Protein (Negative) Urine Glucose (UA) (Negative) Urine Ketones (Negative) Urine Blood (Negative) Urine Nitrite (Negative) Urine Bilirubin (Negative) Urine Urobilinogen (Negative) Ur Leukocyte Esterase (Negative) Urine WBC (Auto) (0-5) /hpf Urine RBC (Auto) (0-4) /hpf U Hyaline Cast (Auto) (0-5) /lpf U Epithel Cells (Auto) (0-5) /lpf Urine Bacteria (Auto) (Negative) POC Ur Test (NEG) Hepatitis A IgM Ab Hep Bs Antigen (Neg) Hep B Core IgM Ab Hepatitis C Antibody (Neg) Diagnostic Findings CT Abdomen/pelvis 04/19/2019 FINDINGS: Lung bases are unremarkable. The liver, spleen, adrenal glands, kidneys and pancreas are unremarkable. There is no biliary or pancreatic ductal dilatation. Slight focal wall thickening of the gallbladder fundus is nonspecific but may reflect adenomyomatosis. The gallbladder is not distended. A mildly enlarged portacaval lymph node measures 1.3 cm in short axis diameter. There is no hydronephrosis. The appendix is surgically absent. No pelvic lymphadenopathy is present. The uterus is surgically absent. The ovaries are not enlarged. There is no ascites. There are no suspicious osseous lesions. IMPRESSION: 1. No acute process within the abdomen or pelvis. 2. Mildly enlarged portacaval lymph node, a nonspecific finding. 3. No bowel obstruction. 4. No biliary or pancreatic ductal dilatation. US gallbladder 04/19/2019 FINDINGS: Liver is sonographically normal. There is no biliary ductal dilatation. The common bile duct measures 5 mm in caliber. No gallstones are noted. There is mild focal wall thickening of the gallbladder at the level the fundus, measuring 4 mm. Sonographic Canela sign was reported. No pericholecystic fluid is noted. There is no right hydronephrosis. The pancreas is unremarkable by sonography. The tail is slightly obscured. IMPRESSION: 1. No gallstones or biliary ductal dilatation. 2. Sonographic Canela sign reported. Mild focal wall thickening of the gallbladder fundus may reflect adenomyomatosis. The CT and sonographic findings do not strongly suggest acute cholecystitis however if persistent right upper quadrant pain, a hepatobiliary scan is recommended. Medications Administered Current Inpatient Medications Acetaminophen (Tylenol) 325 mg PO Q6H PRN PRN Reason: pain/fever Stop: 05/19/19 23:01 Amitriptyline HCl (Elavil) 10 mg PO HS [facility] Stop: 05/20/19 20:59 Promethazine HCl 12.5 mg/ (Sodium Chloride) 50.5 mls @ 202 mls/hr IV Q6H PRN PRN Reason: Nausea And Vomiting Stop: 05/19/19 21:21 Lorazepam (Ativan) 0.5 mg in 1 mls @ 1 mls/min IV Q4H PRN PRN Reason: Anxiety/Agitation Stop: 05/19/19 23:01 Dextrose/Lactated Ringer's (D5w And Lactated Ringers) 1,000 mls @ 60 mls/hr IV .[id number] [facility] Stop: 05/20/19 00:59 Last Admin: 04/20/19 01:10 Dose: 60 mls/hr Documented by: Ketorolac Tromethamine (Toradol) 15 mg IV Q6H PRN PRN Reason: Pain Stop: 04/24/19 23:01 Last Admin: 04/19/19 23:47 Dose: 15 mg Documented by: Metoprolol Succinate (Toprol Xl) [facility] [place] Stop: 05/20/19 08:59 Morphine Sulfate (Morphine Sulfate) 4 mg IV Q4H PRN PRN Reason: Pain Stop: 05/03/19 23:01 Oxycodone HCl (Roxicodone Immediate Rel) 5 mg PO Q4H PRN PRN Reason: Pain Stop: 05/03/19 23:01 Last Admin: 04/20/19 00:47 Dose: 5 mg Documented by: Pantoprazole Sodium (Protonix) 40 mg PO [facility] Stop: 05/20/19 05:29 Last Admin: 04/20/19 05:40 Dose: 40 mg Documented by: (1) Abdominal pain Abdominal location: right upper quadrant Qualified Code(s): R10.11 - Right upper quadrant pain
--- NOTE | 2019-04-20 07:36 | Surgery Consultation ---
Date of Consultation April 20, 2019 Assessment & Plan (1) Abdominal pain: With her gallbladder being distended and possible sludge she could be having some element of biliary colic She does not have significant acute cholecystitis and I doubt her gallbladder is the source of her elevated liver function studies We will review the report of her MRCP and the HIDA scan. We will asked the GI team to see her. Depending on the thoughts And findings we may consider proceeding with laparoscopic today or tomorrow. We will keep her n.p.o. for now History of Present Illness Attending Physician: Jimmy Mccann MD History of Present Illness Patient admitted to the emergency room with recurrent right upper quadrant pain fully related to the gallbladder He has been seen recently by the [facility] GI doctors and had a hydrogen breath test. I believe she is been seen by Dr. Xavier and Dr. Bello She was to see Dr. Lobo but presented to the emergency room, her transaminases are elevated as well as her alkaline phosphatase and her total bilirubin 2.2 Her gallbladder is mildly distended very mild thickening of part of the wall no stones seen but there is concern she may have sludge or polyps MRCP report is pending a HIDA scan has been ordered He has not had significant nausea or vomiting Allergies Allergy/AdvReac Type Severity Reaction Status Date / Time hydrocodone Allergy Intermediate Confusion Verified 04/19/19 18:19 [From Lorcet (hydrocodone)] nitrofurantoin Allergy Intermediate Chest Pain Verified 04/19/19 18:19 [From Macrobid] tramadol Allergy Mild Itchiness Verified 04/19/19 18:19 Home Medications Home Medications Medication Instructions Recorded Confirmed Type cholecalciferol (vitamin D3) 2,000 units PO QAM 08/27/18 04/19/19 History [Vitamin D3] coQ10 (ubiquinol) 200 mg PO QAM 08/27/18 04/19/19 History hydrochlorothiazide 25 mg PO QAM 08/27/18 04/19/19 History hydroxychloroquine 400 mg PO QAM 08/27/18 04/19/19 History metoprolol succinate 100 mg PO QAM 08/27/18 04/19/19 History omeprazole 40 mg PO HS 10/11/18 04/19/19 History amitriptyline 10 mg PO HS 04/19/19 04/19/19 History azathioprine 25 mg PO QAM 04/19/19 04/19/19 History Patient History Medical History Hypertension (Chronic) Surgical History History of esophagogastroduodenoscopy (EGD) Hx of appendectomy Hx of hysterectomy Family History Other Cancer Diabetes Heart disease Hypertension Social History Preferred Language: Malian Beliefs That Will Affect Care: None Current Living Situation: Spouse Current Living Situation Comment: lives in two story home with Other Information That Helps Us Care for You: No Feels Safe at Home: Yes Safety Concerns: Feels Safe At This Time Smoking Status: Former smoker Hx Alcohol Use: No Hx Substance Use: No Review of Systems Review of Systems: All systems reviewed & are unremarkable except as noted in HPI & below Physical Exam Constitutional: well developed and well nourished; no acute distress Respiratory: normal respiratory effort; no respiratory distress Cardiovascular: Rate/Rhythm: regular rate Gastrointestinal (Abdomen): Her abdomen is soft but she does have right upper quadrant tenderness appears to be persistent Skin: no rashes, warm and dry Neurologic: awake Psychiatric: Orientation: alert Results & Data Vital Signs (Past 12 Hours) Vital Signs Temp Pulse Resp BP BP BP Pulse Ox 04/19/19 23:11 36.8 C 69 18 101/64 93 04/19/19 23:00 36.5 C 69 16 128/53 L 98 04/19/19 22:41 109/64 04/19/19 21:00 73 18 132/88 98 I have reviewed her ultrasound and CAT scan PG Care Time/CCT Total # of Minutes Spent Total Time Spent with Patient: Total time spent is greater than 50% in coordination of care (as documented) at patient's floor/unit and/or counseling patient: (1) Abdominal pain Abdominal location: right upper quadrant Qualified Code(s): R10.11 - Right upper quadrant pain
[2019-04-20] MEDS: KETOROLAC TROMETHAMINE 15 MG/ML VIAL IV PRN (07:40)
[2019-04-20 07:45] LABS: Basophils # (auto) 0.01 K/uL (0-0.2); Basophils % (auto) 0.2 %; Eosinophils # (auto) 0.17 K/uL (0-0.5); Eosinophils % (auto) 3.5 %; Hematocrit (blood only) 37.9 % (37-47); Hemoglobin 12.6 g/dL (12.0-16.0); Immature Granulocytes # (auto) 0.01 K/uL (0.00-0.02); Immature Granulocytes % (auto) 0.2 %; Lymphocytes # (auto) 1.11 K/uL (1.2-3.4); Mean Corpuscular Hemoglobin 27.4 pg (25-34); Mean Corpuscular Hgb Conc 33.2 g/dL (32-36); Mean Corpuscular Volume 82.4 fL (80-100); Mean Platelet Volume 10.6 fL (7.4-10.4); Monocytes # (auto) 0.44 K/uL (0.11-0.59); Monocytes % (auto) 9.1 %; Neutrophils # (auto) 3.08 K/uL (1.4-6.5); Platelet Count 200 K/uL (130-400); RDW Coefficient of Variation 13.2 % (11.5-14.5); RDW Standard Deviation 39.8 fL (36.4-46.3); White Blood Count 4.82 K/uL (4.8-10.8)
--- NOTE | 2019-04-20 07:51 | Magnetic Resonance Report ---
MR MRCP CLINICAL HISTORY: 44 years-old Female presenting with abd pain, abn lfts. TECHNIQUE: Multisequence, multiplanar MR imaging of the abdomen was performed without the use of intr avenous contrast. Dedicated MRCP protocol was utilized. 3-D volumetric and/or maximum intensity proje ction (MIP) images were subsequently reconstructed for review. IV contrast: None. COMPARISON: None. FINDINGS: Localizer images: Unremarkable. Lung bases: Normal heart size. No pericardial or pleural effusion. Lung base clear. Liver: Normal morphology. Biliary: No intrahepatic or extrahepatic biliary ductal dilatation. Conventional insertion of the cys tic duct onto the hepatic duct. Conventional intrahepatic biliary bifurcation. Normal gallbladder apa rt from wall thickening at the fundus, which suggests the presence of adenomyomatosis. No gallstones. Pancreas: Mild parenchymal atrophy. Pancreas divisum suggested. No pancreatic ductal dilatation. Spleen: Normal noncontrast appearance. Adrenal glands: Normal noncontrast appearance. Kidneys and ureters: Normal noncontrast appearance. No hydronephrosis. Normal ureters. Bowel: Normal noncontrast appearance. No bowel obstruction. Peritoneal cavity: No free fluid. Lymph nodes: No gross lymphadenopathy allowing for noncontrast technique. Vasculature: Normal noncontrast appearance. Abdominal wall: Normal. Musculoskeletal: Normal. IMPRESSION: 1. No cholelithiasis or biliary ductal dilatation. ACT 112: Negative or not required by law. Electronically signed by: Miguel Chawla M.D. 04/20/2019 7:49 AM
[2019-04-20 08:16] LABS: Albumin Level 3.2 gm/dl (3.4-5.0); BUN Creatinine Ratio 11.6 (10-20); Calcium 8.5 mg/dl (8.5-10.1); Creatinine Clr Calc Pharmacy 95.4 ml/min; Est GFR (African American) 117.2; Est GFR (Non-African American) 101.1; Potassium 3.4 mmol/L (3.5-5.1)
[2019-04-20 08:21] LABS: Bilirubin,Total 0.7 mg/dl (0.2-1); Globulin 3.2 gm/dl (2.5-4.0); Total Protein 6.4 gm/dl (6.4-8.2)
[2019-04-20] MEDS ORDERED: METOPROLOL SUCC 50MG EXT REL TAB PO SCH (09:00)
--- NOTE | 2019-04-20 14:37 | Gastrointestinal Consultation ---
Date of Consultation April 20, 2019 Assessment & Plan (1) Abdominal pain: Need for cholecystectomy after transaminitis resolves as per surgery team. Would go forward with HIDA scan as already ordered and would defer surgery to Dr. Sun (IP) or Dr. Lobo (OP). Present on Admission?: Yes (2) Hepatitis: Likely a drug induced liver injury due to Imuran. We are seeing the transaminases improve with discontinuation of the Imuran and there is no evidence of obstruction on imaging which rules out choledocholithiasis. This could also be from cipro use though only 1-3% of patients get transaminitis from that medication. Would not rechallenge with Imuran. Full liquids today and would advance if no nausea/vomiting from this. Present on Admission?: Yes Supervising Physician Co-Signing Physician Notes I have personally seen and examined the patient with LAINE Bobo on . Her note reflects my exam and findings. I agree with her impression and plan. 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 Mihir Butcher M.D. History of Present Illness Reason for Consultation: Elevated LFTs, Abdominal pain Requesting Physician: Dr. Calvo Attending Physician: Jimmy Mccann MD History of Present Illness Ms. Korin Tucker is a 44 yr old female pt of Dr. Houston Sutton. She carries a hx of Lupus, migraines, insulin resistance and has been seen several times in the past year by our service as an OP for abdominal pain. She was seen in GI clinic yesterday for pain and transaminases were moderately elevated so she was directed to [facility] for evaluation. On arrival here: AST 430->263; ALT 688-> 471.k Alk Phos 207->158. T bili and lipase have been normal. A review of OP records shows normal LFTs in February. She started Imuran in March for Lupus. Also, she was on Cipro for 10 days early Apr for a small bowel bacterial overgrowth. Here, CT and US suggested mild gallbladder wall thickening but no stones or bile duct obstruction. She is seen and examined while she is laying on her side, with HOB up and is playing cards with her mother who is at the bedside. She tells us that she has low grade RUQ at baseline which is constantly present and that if she eats anything she gets severe RUQ pain. The post prandial pain is worse if she eats fatty foods. She underwent EUS on 04/08 with gallbladder sludge and was evaluated by OP surgery and there was consideration for cholecystectomy. HIDA was ordered (pending). She underwent EGD also on 04/08/19 with gastritis, gastric polyps (path: active gastritis and inflammatory polyps). Allergies Allergy/AdvReac Type Severity Reaction Status Date / Time hydrocodone Allergy Intermediate Confusion Verified 04/19/19 18:19 [From Lorcet (hydrocodone)] nitrofurantoin Allergy Intermediate Chest Pain Verified 04/19/19 18:19 [From Macrobid] tramadol Allergy Mild Itchiness Verified 04/19/19 18: Home Medications Home Medications Medication Instructions Recorded Confirmed Type cholecalciferol (vitamin D3) 2,000 units PO QAM 08/27/18 04/19/19 History [Vitamin D3] coQ10 (ubiquinol) 200 mg PO QAM 08/27/18 04/19/19 History hydrochlorothiazide 25 mg PO QAM 08/27/18 04/19/19 History hydroxychloroquine 400 mg PO QAM 08/27/18 04/19/19 History metoprolol succinate 100 mg PO QAM 08/27/18 04/19/19 History omeprazole 40 mg PO HS 10/11/18 04/19/19 History amitriptyline 10 mg PO HS 04/19/19 04/19/19 History Patient History Medical History Hypertension (Chronic) Surgical History History of esophagogastroduodenoscopy (EGD) Hx of appendectomy Hx of hysterectomy Family History Other Cancer Diabetes Heart disease Hypertension Social History Preferred Language: Danish Beliefs That Will Affect Care: None Current Living Situation: Spouse Current Living Situation Comment: lives in two story home with Feels Safe at Home: Yes Smoking Status: Former smoker Hx Alcohol Use: No Hx Substance Use: No Review of Systems Review of Systems: ROS: Gen: Denies weakness, fevers, weight loss Eyes: No eye redness, or pain, no recent vision changes Resp: No SOB, no cough Cardio: No palpitations/irregular beats, no chest pain GI: as per HPI, otherwise normal : Denies pain on urination Skin: No jaundice, itching or new rashes Physical Exam Constitutional: WD/WN, vitals as above Eyes: PERRL, conjunctivae normal, anicteric sclerae ENMT: external ear and nose normal, oropharynx normal Neck: trachea midline, no thyromegaly Respiratory: normal respiratory effort, lungs clear to auscultation Cardiovascular: RRR, no murmur, no edema Gastrointestinal (Abdomen): Inspection/Auscultation: abdomen normal to inspection Percussion/Palpation: + abdomen tender (exquisitely tender in the epigastric and RUQ) and abdomen soft Skin: no rashes, warm and dry Neurologic: PERRL, EOMI, accommodation nl, no face palsy, no dysarthria Psychiatric: A+Ox3, euthymic affect Results & Data Vital Signs (Past 12 Hours) Vital Signs Temp Pulse Resp BP Pulse Ox 04/20/19 08:57 64 121/77 04/20/19 08:02 36.9 C 64 18 116/75 96 Laboratory Results CBC normal. LFTs as per HPI, other chemistries normal. Diagnostic Findings MRCP 04/20/19: No cholelithiasis or biliary ductal dilatation. Gallbladder US 04/20/19: 1. No gallstones or biliary ductal dilatation. 2. Sonographic Canela sign reported. Mild focal wall thickening of the gallbladder fundus may reflect adenomyomatosis. The CT and sonographic findings do not strongly suggest acute cholecystitis however if persistent right upper quadrant pain, a hepatobiliary scan is recommended. CT 04/19/19: 1. No acute process within the abdomen or pelvis. 2. Mildly enlarged portacaval lymph node, a nonspecific finding. 3. No bowel obstruction. 4. No biliary or pancreatic ductal dilatation. (1) Abdominal pain Abdominal location: right upper quadrant Qualified Code(s): R10.11 - Right upper quadrant pain
--- NOTE | 2019-04-20 16:42 | Discharge Summary ---
Date of Service April 20, 2019 Admission HPI Per Admitting Provider History obtained from patient, family, and records. 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 2 months history of epigastric discomfort waxing and waning throughout the day with alternating constipation/diarrhea. Outpatient GI work-up led to EGD/EUS with concern for gallbladder sludge versus stone versus polyp. Outpatient general surgery consultation. Outpatient HIDA scan recommended. Recent Cipro Rx for small intestine bacterial overgrowth last week. Last 4 days patient had worsening of upper achy abdominal pain with nausea, nonbloody diarrhea, emesis. No fever, no chills. Patient seen at [facility] GI office today. Outpatient labs ordered. LFTs noted to be markedly elevated. Patient directed to ER by GI office. 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 Admission Exam Per Admitting Provider GENERAL: uncomfortable, obese, no respiratory distress SKIN: Normal color, warm HEENT: [place]arcreek palpebral conjunctivae, no ptosis, dry buccal mucosa NECK : Supple, short neck, no tenderness CHEST : CTA, no tenderness HEART : RRR, no obvious murmurs ABDOMEN: Some distention, epigastric tenderness EXTREMITIES : No LE swelling/tenderness, no other conspicuous deformities noted NEUROLOGIC : Coherent, no facial asymmetry, no other gross focality Principal Diagnosis Elevated LFTs/hepatitis likely secondary to Imuran Discharge Exam GENERAL: Young female lying in bed, in no acute distress HEENT: Normocephalic, atraumatic, EOMI, PERRL, anicteric sclerae NECK : Supple, normal to inspection HEART : RRR, no obvious murmurs LUNGS: Clear to auscultation bilaterally, no wheezing rhonchi or crackles noted ABDOMEN: Positive bowel sounds, some distention, tenderness to palpation in rig ht upper quadrant and epigastric area EXTREMITIES : No LE swelling/tenderness, moves all 4 extremities spontaneously and without difficulty SKIN: warm, dry, no rashes or lesions NEUROLOGIC : Alert and oriented x3, no facial asymmetry, speech fluent, moves all 4 extremities spontaneously, no sensory loss noted Discharge Data Allergies Allergy/AdvReac Type Severity Reaction Status Date / Time hydrocodone Allergy Intermediate Confusion Verified 04/19/19 18:19 [From Lorcet (hydrocodone)] nitrofurantoin Allergy Intermediate Chest Pain Verified 04/19/19 18:19 [From Macrobid] tramadol Allergy Mild Itchiness Verified 04/19/19 18:19 Consultations 04/19/19 20:36 ED Decision to Admit Stat 04/20/19 00:04 Consult General Surgery Routine 04/20/19 07:23 Consult Gastroenterology Routine Procedures Performed Operation Date: 04/20/19 14:05 <No data on this case meets the specified criteria> Ordered Studies 04/19/19 19:41 CT Abdomen/pelvis FINDINGS: Lung bases are unremarkable. The liver, spleen, adrenal glands, kidneys and pancreas are unremarkable. There is no biliary or pancreatic ductal dilatation. Slight focal wall thickening of the gallbladder fundus is nonspecific but may reflect adenomyomatosis. The gallbladder is not distended. A mildly enlarged portacaval lymph node measures 1.3 cm in short axis diameter. There is no hydronephrosis. The appendix is surgically absent. No pelvic lymphadenopathy is present. The uterus is surgically absent. The ovaries are not enlarged. There is no ascites. There are no suspicious osseous lesions. IMPRESSION: 1. No acute process within the abdomen or pelvis. 2. Mildly enlarged portacaval lymph node, a nonspecific finding. 3. No bowel obstruction. 4. No biliary or pancreatic ductal dilatation. 04/19/19 22:15 US gallbladder FINDINGS: Liver is sonographically normal. There is no biliary ductal dilatation. The common bile duct measures 5 mm in caliber. No gallstones are noted. There is mild focal wall thickening of the gallbladder at the level the fundus, measuring 4 mm. Sonographic Canela sign was reported. No pericholecystic fluid is noted. There is no right hydronephrosis. The pancreas is unremarkable by sonography. The tail is slightly obscured. IMPRESSION: 1. No gallstones or biliary ductal dilatation. 2. Sonographic Canela sign reported. Mild focal wall thickening of the gallbladder fundus may reflect adenomyomatosis. The CT and sonographic findings do not strongly suggest acute cholecystitis however if persistent right upper quadrant pain, a hepatobiliary scan is recommended. 04/20/19 00:04 MR MRCP Urgent IMPRESSION: 1. No cholelithiasis or biliary ductal dilatation. Hospital Course (1) Abdominal pain: With abnormal LFTs AST in 400s, ALT in 600s Rule out cholecystitis/choledocholithiasis GI and general surgery consulted CT abdomen pelvis ordered, ultrasound of gallbladder obtained as well as MRCP. No signs of choledocholithiasis. Gallbladder distended, possible sludge, she could possibly have some element of biliary colic. She does not have significant acute cholecystitis. Elevated liver enzymes not likely secondary to gallbladder. Dr. Sun, (general surgery) plans to see patient as outpatient for possible cholecystectomy Per GI, elevated LFTs/hepatitis likely secondary to Imuran use Imuran was stopped, blood work rechecked, LFTs trending down (ALT 688--> 471, AST 430--> 264), Alk phos 207--> 158 Hepatitis panel ordered as well, patient will follow-up with results as outpatient in GI clinic Discussed between general surgery and GI, plan to discharge patient home, she will obtain blood work, to follow-up on LFTs this Thursday (04/22/2019) and following Thursday. Results will be sent to GI office. Imuran was stopped, patient notified her executive compensation analyst. Patient is feeling better already this afternoon, pain much decreased. Chronic conditions: SLE on Imuran - stopped Imuran d/t concern of above Hypertension, BP at goal Diarrhea rule out C. 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 Past tobacco abuse Total Time Total Time Spent Total Time Spent (In Minutes): 40 Total Time Includes: Examination of the Patient, Discharge Planning, Medication Reconciliation and Communication With Other Providers Discharge Plan Discharge Items Patient Disposition: Home - Self-Care Reason For Visit: ABD PAIN Discharge Diagnosis: Elevated LFTs/ hepatitis, likely secondary to Imuran use Activity: Per Instructions section Activity Comment: as tolerated, pace yourself, ask for help as needed Non-emergency contact: Primary Care Provider, Specialist and Legislative Analyst Call non-emergency contact if: you have any medication questions, your symptoms worsen and your pain is not controlled Follow-up/Referrals: Houston Sutton II, DO [Primary Care Provider] - Diet: Regular Diet Comment: Avoid heavy/greasy foods Addtl Attending Provider Instructions: Your Imuran was stopped, please make sure to let your executive compensation analyst know. You should also follow-up with your primary care provider within 1 week of this visit. Please obtain blood work, (to evaluate liver enzymes) this Thursday, and following Thursday. The results will be sent to your gastroenterology office. Dr. Sun, surgeon, plans to see you as outpatient, the follow-up appointment will be scheduled by his office. Pending Studies at Discharge: Yes Studies:: Hepatitis panel Stand-Alone Forms: Call Back Authorization, [facility], Smoking Cessation Medications and DC Order Prescriptions: Continued omeprazole 40 mg Capsule,Delayed Release(Dr/Ec) 40 mg PO HS RF: 0 metoprolol succinate 100 mg Tablet Extended Release 24 Hr 100 mg PO QAM RF: 0 hydrochlorothiazide 25 mg Tablet 25 mg PO QAM RF: 0 hydroxychloroquine 200 mg tablet 400 mg PO QAM RF: 0 cholecalciferol (vitamin D3) [Vitamin D3] 2,000 unit Capsule 2,000 units PO QAM RF: 0 coQ10 (ubiquinol) 200 mg Capsule 200 mg PO QAM RF: 0 amitriptyline 10 mg tablet 10 mg PO HS RF: 0 Discontinued azathioprine 50 mg tablet 25 mg PO QAM RF: 0 Discharge Orders: Discharge Order (Routine); Ordered 04/20/19 Ordered By: Jimmy Mccann Admission Data Admit Date/Time: 04/19/19 22:18 Attending Provider: Jimmy Mccann Admit Provider: Angel Calvo Primary Care Provider: Houston Sutton II Other Providers: Angel Calvo ; Francoise Lobo ; Bita Bello Other Interventions: Discharge Summary Assessment (RN) Last Done: 04/20/19 16:53
[2019-04-20] MEDS ORDERED: AMITRIPTYLINE HCL 10 MG TAB PO SCH (21:00)
[2019-04-21 15:08] LABS: Hepatitis A Antibody IgM NON-REACTIVE (NON-REACTIVE); Hepatitis B Core Antibody IgM NON-REACTIVE (NON-REACTIVE)
[2019-04-24 00:07] LABS: Anti Mitochondrial Antibody NEGATIVE (NEGATIVE); Anti Nuclear Antibody Screen POSITIVE (NEGATIVE); CMV IgG Antibody >10.00 U/mL; CMV IgM Antibody <30.00 AU/mL; EBV Virus Capsid Ag IgG Ab >750.00 U/mL; Parvovirus IgG 3.2 (<0.9); Parvovirus IgM 0.1 (<0.9); Smooth Muscle Antibody NEGATIVE (NEGATIVE)
[2019-04-25 08:29] LABS: ANA Pattern Nuclear, Homogeneous; ANA Pattern 2 Nuclear, Nucleolar; ANA Titer 1:40 titer; ANA Titer 2 1:40 titer
== END 2019-04-20 17:30 | disposition home or self-care (01) ==
LOC: 3W 17:33 → ED 17:33 → 3W 22:41

== ENCOUNTER 2019-06-27 06:53 | Observation (INO) ==
--- NOTE | 2019-06-23 10:59 | Anesthesiology Consultation ---
Date of Service June 23, 2019 Assessment & Plan (1) Encounter for pre-operative examination: - Most recent BMP out of date. Will order BMP AM DOS. Chart Review Chart Review: Acceptable Risk for Surgery and Patient NOT seen in Pre Admission Testing History Surgery Operation Date: 06/27/19 09:40 Proposed Procedures p Laparoscopic Cholecystectomy - Rodolfo Sun MD, FACS Height/Weight Height: 5 ft 2 in Weight: 78.018 kg Allergies Allergy/AdvReac Type Severity Reaction Status Date / Time hydrocodone Allergy Intermediate Confusion Verified 06/22/19 14:57 [From Lorcet (hydrocodone)] nitrofurantoin Allergy Intermediate Chest Pain Verified 06/22/19 14:57 [From Macrobid] tramadol Allergy Mild Itchiness Verified 06/22/19 14:57 Medications Home Medications Medication Instructions Recorded Confirmed Last Taken cholecalciferol (vitamin D3) 4,000 units PO QAM 08/27/18 06/22/19 04/19/19 [Vitamin D3] coQ10 (ubiquinol) 200 mg PO QAM 08/27/18 06/22/19 04/19/19 hydrochlorothiazide 25 mg PO QAM 08/27/18 06/22/19 04/19/19 hydroxychloroquine 400 mg PO QAM 08/27/18 06/22/19 04/19/19 metoprolol succinate 100 mg PO QAM 08/27/18 06/22/19 04/19/19 omeprazole 40 mg PO HS 10/11/18 06/22/19 04/18/19 amitriptyline 10 mg PO HS 04/19/19 06/22/19 04/18/19 Past Medical History Medical History Degenerative disc disease lumbar, thoracic GERD (gastroesophageal reflux disease) Hepatitis hx per records Hiatal hernia Hypertension (Chronic) Lupus (systemic lupus erythematosus) dx'd 08/2018, [place] [facility] Obesity Stomach ulcer hx Past Family History Family History Mother Family hx of colon cancer Other Cancer Diabetes Heart disease Hypertension Past Surgical History Surgical History Fusion of spine 2004 History of section History of colonoscopy History of esophagogastroduodenoscopy (EGD) Hx of appendectomy Hx of hysterectomy Social History Smoking Status: Former smoker Do You Dip or Chew Tobacco: No Smoking End Date: QUIT 2006 Hx Alcohol Use: No Hx Substance Use: No Testing Laboratory Results 04/20/19 WBC 4.82 H/H 12.6/37.9 PLATELETS 200 SODIUM 140 POTASSIUM 3.4 CHLORIDE 108 CO2 28 BUN 8 CREATININE 0.72 GLUCOSE 79 Electrocardiogram Date: 01/18/19 NSR at 70bpm. Cannot rule out anterior infarct, age undetermined. Chest X-Ray Date: 12/17/18 Findings: + NAD Stress Test Date: 02/09/19 Type: DSE The stress echo is negative for inducible ischemia. Stress EKG response showed no evidence of ischemia. No significant valvular heart disease. LVEF 60-64%. 105% MPHR.
[~2019-06-27 06:53] MED LIST changes: -GADAVIST IV PRN; +cefUROXime 1,500 MG in DEXTROSE 5% 100 ML IV SCH
--- NOTE | 2019-06-27 06:53 | History & Physical Report ---
Date of Service June 27, 2019 Assessment & Plan (1) Biliary colic: Patient is for laparoscopic cholecystectomy We may consider cholangiogram [facility] possible discharge home History of Present Illness Primary Care Provider: Houston Sutton II, DO Patient was recently hospitalized in April Through the emergency room with right upper quadrant pain which was recurrent She underwent MRCP which was negative, Her ultrasound did show distended gallbladder with sludge She did not have a HIDA scan Plan was to proceed with laparoscopic cholecystectomy at a later date Allergies Allergy/AdvReac Type Severity Reaction Status Date / Time hydrocodone Allergy Intermediate Confusion Verified 06/27/19 07:13 [From Lorcet (hydrocodone)] nitrofurantoin Allergy Intermediate Chest Pain Verified 06/27/19 07:13 [From Macrobid] tramadol Allergy Mild Itchiness Verified 06/27/19 07:13 Home Medications Home Medications Medication Instructions Recorded Confirmed Type cholecalciferol (vitamin D3) 4,000 units PO QAM 08/27/18 06/27/19 History [Vitamin D3] coQ10 (ubiquinol) 200 mg PO QAM 08/27/18 06/27/19 History hydrochlorothiazide 25 mg PO QAM 08/27/18 06/27/19 History hydroxychloroquine 400 mg PO QAM 08/27/18 06/27/19 History metoprolol succinate 100 mg PO QAM 08/27/18 06/27/19 History omeprazole 40 mg PO HS 10/11/18 06/27/19 History amitriptyline 10 mg PO HS 04/19/19 06/27/19 History Past Med/Surg History Medical History (Updated 06/27/19 @ 07:12 by Abby Gordon RN) Degenerative disc disease lumbar, thoracic GERD (gastroesophageal reflux disease) Hiatal hernia Hx of malignant carcinoid tumor (Acute) Hypertension (Chronic) Lupus (systemic lupus erythematosus) dx'd 08/2018, follows with [facility] [place] Obesity Stomach ulcer hx Surgical History Fusion of spine 2003 History of section History of colonoscopy History of esophagogastroduodenoscopy (EGD) Hx of appendectomy Hx of hysterectomy Family History Mother Family hx of colon cancer Other Cancer Diabetes Heart disease Hypertension Social History Preferred Language: Indonesian Communication Ability: Effective Circuit Breaker Mechanic Required: No Beliefs That Will Affect Care: None Current Living Situation: Spouse Current Living Situation Comment: lives in two story home with Other Information That Helps Us Care for You: No Feels Safe at Home: Yes Safety Concerns: Feels Safe At This Time Smoking Status: Former smoker Do You Dip or Chew Tobacco: No ; Smoking End Date: QUIT 2006 ; Second Hand Exposure: Yes (FATHER/SPOUSE SMOKED) ; Hx Alcohol Use: No Hx Substance Use: No Review of Systems All systems reviewed & are unremarkable except as noted in HPI & below Physical Exam Constitutional: well developed and well nourished; no acute distress Eyes: + anicteric sclerae Respiratory: normal respiratory effort; no respiratory distress Cardiovascular: Rate/Rhythm: regular rate Gastrointestinal (Abdomen): Percussion/Palpation: abdomen soft Musculoskeletal: Gait: normal gait Skin: no rashes, warm and dry Neurologic: awake Psychiatric: Orientation: alert
[2019-06-27] MEDS ORDERED: DEXAMETHASONE SOD INJ 4 MG/ML VIAL ONE (07:29)
[2019-06-27] MEDS ORDERED: PROPOFOL IV EMULSION 10 MG/ML 20 ML VIAL IV ONE (07:30)
[2019-06-27] MEDS ORDERED: GLYCOPYRROLATE 0.2 MG/ML VIAL ONE (07:30)
[2019-06-27] MEDS ORDERED: MIDAZOLAM HCL 1 MG/ML 2ML VIAL ONE (07:30)
[2019-06-27] MEDS ORDERED: ONDANSETRON INJ 2 MG/ML 2 ML VIAL ONE (07:30)
[2019-06-27] MEDS ORDERED: LIDOCAINE HCL 2% 2 ML VIAL/AMP(20MG/ML) INFIL ONE (07:30)
[2019-06-27] MEDS ORDERED: ROCURONIUM BROMIDE 10 MG/ML 5 ML VIAL ONE (07:30)
[2019-06-27] MEDS ORDERED: NEOSTIGMINE METHYLSULFATE 5 MG/5 ML SYR ONE (07:30)
[2019-06-27] MEDS ORDERED: fentaNYL citrate 100 MCG/2 ML VIAL ONE (07:30)
[2019-06-27 07:40] LABS: Creatinine Clr Calc Pharmacy 84.6 ml/min; Est GFR (African American) 100.2; Est GFR (Non-African American) 86.4; Potassium 3.4 mmol/L (3.5-5.1)
[2019-06-27] MEDS ORDERED: BUPIVACAINE 0.5 % 5 MG/1 ML MPF 30ML VIAL ONE (08:13)
[2019-06-27] MEDS ORDERED: PROMETHAZINE HCL 6.25 MG in SODIUM CHLORIDE 0.9% 50 ML IV PRN (08:20)
[2019-06-27] MEDS ORDERED: ATROPINE SULFATE 0.1 MG/ML 10ML SYR IV PRN (08:20)
[2019-06-27] MEDS ORDERED: ePHEDrine sulfate 50 MG/ML AMP IV PRN (08:20)
[2019-06-27] MEDS ORDERED: ONDANSETRON INJ 2 MG/ML 2 ML VIAL IV PRN ×2 (08:20→10:52)
[2019-06-27] MEDS ORDERED: fentaNYL citrate 100 MCG/2 ML VIAL IV PRN (08:20)
[2019-06-27] MEDS ORDERED: ACETAMINOPHEN 1,000 MG/100 ML VIAL IV STA (09:18)
--- NOTE | 2019-06-27 09:18 | Post Operative Brief Note ---
PG Immediate Post Op with CF Date of Surgery June 27, 2019 Pre & Post Diagnosis Operation Date: 06/27/19 08:30 Pre-Op Diagnosis: Biliary Colic Post-Op Diagnosis: Biliary Colic, chronic cholecystitis and adhesions I identified the patient and participated in the time-out.: Yes Procedure Operation Date: 06/27/19 08:30 Actual Procedures p Laparoscopic Cholecystectomy(Not Applicable) - Rodolfo Sun MD, FACS Surgeon Rodolfo Sun MD, FACS [employer] Remittance Clerk Padma Webb Estimated Blood Loss 5 Findings Consistent with Post-Op Diagnosis Specimens Specimen Description: A: Gallbladder and Contents
--- NOTE | 2019-06-27 10:31 | Anesthesiology Progress Note ---
Date of Service June 27, 2019 Anesthesia Post Procedure Vital Signs Vital Signs: Temp Pulse Pulse Resp BP Pulse Ox 06/27/19 10:25 57 L 12 142/78 H 95 06/27/19 10:15 36.5 C 53 L 14 152/85 H 93 06/27/19 10:05 61 15 147/71 H 94 06/27/19 09:55 63 14 158/86 H 98 06/27/19 09:45 58 L 15 160/81 H 100 06/27/19 09:39 36.7 C 56 L 14 177/71 H 100 06/27/19 07:15 37 C 71 18 131/87 96 Pain Intensity Abdomen: Pain Intensity: 2 Transfer of Care Handoff Completed per policy Notes Mental Status: alert / awake / arousable Patient Amnestic to Procedure: Yes Nausea / Vomiting: adequately controlled Pain: adequately controlled Airway Patency, RR, SpO2: stable & adequate BP & HR: stable & adequate Hydration State: stable & adequate Anesthetic Complications: no major complications apparent
--- NOTE | 2019-06-27 10:39 | Operative Report ---
DATE OF OPERATION: 06/27/2019 NAME OF OPERATION: Laparoscopic cholecystectomy with lysis of adhesions. PREOPERATIVE DIAGNOSIS: Biliary colic. POSTOPERATIVE DIAGNOSES: Biliary colic with chronic cholecystitis and adhesions. STAFF SURGEON: Rodolfo Sun M.D. FUR DESIGNER: Dr. Lashaun Webb. ANESTHESIA: General. DESCRIPTION OF PROCEDURE: The patient was brought in the operating room and placed on the operating table in supine position. Her abdomen was prepped and draped in usual fashion. My dental assistant instructor helped with prepping, draping, removal of the gallbladder and closure of the wounds. A 0.5% plain Marcaine was used to anesthetize all incisions. Incision was made above the umbilicus, carrying dissection down to the fascia. A Veress needle passed, pneumoperitoneum produced. An 11 mm port placed this level. The patient was placed in reverse Trendelenburg position, rotated to the left. Three 5 mm ports were placed under visualization, 1 cephalad and 2 laterally. Gallbladder was grasped and retracted. There were significant adhesions to the gallbladder down along the gallbladder into the alberto hepatis. These were taken down sharply and bluntly. Finally, identifying the cystic duct and cystic artery, these were clipped and transected. The cystic duct was very small. The gallbladder was then dissected away from the liver bed. It was scarred, consistent with chronic cholecystitis. The gallbladder was placed in an Endobag. After appropriate hemostasis and irrigation, the Endobag was removed through the umbilical site. All ports were removed. Fascia at the umbilicus closed using interrupted 0 Vicryl suture. Skin reapproximated using subcuticular 4-0 Monocryl and Dermabond. The patient was transferred to recovery room in stable condition. I attest to the content of the Intraoperative Record and any orders documented therein. Any exception s are noted below.
[2019-06-27] MEDS ORDERED: MoRPHine SULFATE 2 MG/ML CARP IV PRN (10:52)
[2019-06-27] MEDS ORDERED: PROMETHAZINE HCL 25 MG in SODIUM CHLORIDE 0.9% 50 ML IV PRN (10:52)
[2019-06-27] MEDS ORDERED: MoRPHine SULFATE 4 MG/ML 1 ML CARP\\VIAL IV PRN (10:52)
[2019-06-27] MEDS ORDERED: ACETAMINOPHEN 325 MG TAB PO PRN (10:52)
[2019-06-27] MEDS ORDERED: PROMETHAZINE HCL 12.5 MG in SODIUM CHLORIDE 0.9% 50 ML IV PRN (10:52)
[2019-06-27] MEDS ORDERED: IBUPROFEN 600 MG TAB PO PRN (10:52)
[2019-06-27] MEDS ORDERED: HYDROCODONE/ACETAMOPHEN 5/325MG TAB PO PRN (10:52)
[2019-06-27] MEDS: LACTATED RINGER'S 1,000 ML IV SCH ×2 (11:00→15:18)
--- NOTE | 2019-06-27 11:39 | Consultation ---
Date of Consultation June 27, 2019 Assessment & Plan (1) History of laparoscopic cholecystectomy: Post op day# 0 S/P laparoscopic cholecystectomy and lysis of adhesions by Dr Sun EBL#5ml Post op with abdominal discomfort -pain management, wound management per general surgery -incentive spirometry -CBC, BMP in a.m. (2) Hypokalemia: K: 3.4 this morning -Replace and monitor (3) Lupus (systemic lupus erythematosus): Follows with rheumatology in [place] -On Plaquenil, Surgery holding for now (4) Hypertension: -Continue metoprolol -Hold HCTZ and reassess tomorrow morning (5) GERD (gastroesophageal reflux disease): -Continue PPI DVT Prophylaxis -SCDs per surgery Disposition per primary services Follows with Dr Sutton in [place] for routine care Pt was seen and care coordinated with Dr Gaffney. See addendum Pt will be followed by Dr Chen starting 06/28/2019 Thank you for this consultation. We will follow the patient with you during their hospital stay. You can reach a [facility] of [facility]/11 via pager @ [phone]. Supervising Physician Co-Signing Physician Notes HISTORY: Record reviewed. Patient interviewed and examined. Care coordinated with Calli Holt PA-C. Please refer to her documentation for complete history. Briefly, 44 YO female with SLE. Laparoscopic cholecystectomy with lysis of adhesions performed today by Dr. Sun. Having some postop pain. No cough, SOB, nausea, vomiting. EXAM: General- no distress Lungs- clear to auscultation; no respiratory distress Cardiovascular- RRR; no JVD; no pretibial edema Abdomen- quiet bowel sounds, soft Extremities- no cyanosis; no calf tenderness Neuro- alert, oriented Skin- warm & dry DATA: K 3.4. ASSESSMENT AND PLAN: Doing fairly well postop. Hold Plaquenil perioperatively. Hypokalemia- replace and follow. Due for labs ordered by her Appliance Service Supervisor. Will add to a.m. labs. Please refer to EMILE Holt's documentation for discussion of other issues. Thank you for this consultation. We will follow the patient with you during their hospital stay. My cell # is [phone]. You can reach a member of the [facility] Team 24/11 via pager @ [phone]. History of Present Illness Requesting Physician: Dr Sun Reason for Consultation: Post op medical management Attending Physician: Rodolfo Sun MD, FACS History of Present Illness Pt is 44 y/o F with PMH Lupus, HTN, GERD, mood disorder seen in medical consultation for post op medical management s/p laparoscopic cholecystectomy and lysis of adhesions today by Dr Sun. Post op pt with abdominal discomfort and some nausea. No vomiting. Denies fever/chills, diaphoresis, MADRIGAL, dizziness, syncope, vision changes, neck pain, CP, SOB, orthopnea, palpitations, cough, sore throat, choking, otalgia, rhinorrhea, paresthesias, weakness, extremity edema, rashes, urinary symptoms. Allergies Allergy/AdvReac Type Severity Reaction Status Date / Time hydrocodone Allergy Intermediate Confusion Verified 06/27/19 07:13 [From Lorcet (hydrocodone)] nitrofurantoin Allergy Intermediate Chest Pain Verified 06/27/19 07:13 [From Macrobid] tramadol Allergy Mild Itchiness Verified 06/27/19 07:13 Cephalosporins Allergy Unknown Verified 06/27/19 08:22 Sulfa (Sulfonamide Allergy Unknown Verified 06/27/19 08:22 Antibiotics) Home Medications Home Medications Medication Instructions Recorded Confirmed Type cholecalciferol (vitamin D3) 4,000 units PO QAM 08/27/18 06/27/19 History [Vitamin D3] coQ10 (ubiquinol) 200 mg PO QAM 08/27/18 06/27/19 History hydrochlorothiazide 25 mg PO QAM 08/27/18 06/27/19 History hydroxychloroquine 400 mg PO QAM 08/27/18 06/27/19 History metoprolol succinate 100 mg PO QAM 08/27/18 06/27/19 History omeprazole 40 mg PO HS 10/11/18 06/27/19 History amitriptyline 10 mg PO HS 04/19/19 06/27/19 History Patient History Medical History Degenerative disc disease lumbar, thoracic GERD (gastroesophageal reflux disease) Hiatal hernia Hx of malignant carcinoid tumor (Acute) Hypertension (Chronic) Lupus (systemic lupus erythematosus) dx'd 08/2018, follows with [facility] [place] Obesity Stomach ulcer hx Surgical History Fusion of spine 2004 History of section History of colonoscopy History of esophagogastroduodenoscopy (EGD) Hx laparoscopic cholecystectomy (06/27/19) Laparoscopic cholecystectomy with lysis of adhesions. Dr. 06-27-19 Hx of appendectomy Hx of hysterectomy Family History Mother Family hx of colon cancer Other Cancer Diabetes Heart disease Hypertension Social History Preferred Language: Guatemalan Communication Ability: Effective Chief Radiation Therapist Required: No Beliefs That Will Affect Care: None Current Living Situation: Spouse Current Living Situation Comment: lives in two story home with Other Information That Helps Us Care for You: No Feels Safe at Home: Yes Safety Concerns: Feels Safe At This Time Smoking Status: Former smoker Do You Dip or Chew Tobacco: No ; Smoking End Date: QUIT 2006 ; Second Hand Exposure: Yes (FATHER/SPOUSE SMOKED) ; Hx Alcohol Use: No Hx Substance Use: No Review of Systems Review of Systems: All systems reviewed & are unremarkable except as noted in HPI & below Physical Exam Physical Exam: General: no acute distress, overweight Head: normocephalic, atraumatic Eyes: EOM's intact, conjunctiva non-injected, anicteric ENT: normal inspection external ears, nose, mucous membranes moist Neck: supple, trachea midline Lungs: clear, no respiratory distress, no wheezing/rhonchi/rales CV: RRR, no murmur, no pretibial edema Abd: normal BS, abdomen distended, + surgical incisions are closed with tissue adhesive without any active bleeding, +diffuse tenderness to very light palpation Ext: no cyanosis, no calf tenderness Neuro: A&O x 3, no focal deficits noted, normal affect Skin: warm, dry Results & Data ([facility]) Vital Signs (Past 12 Hours) Vital Signs Temp Pulse Pulse Pulse Resp BP BP 06/27/19 11:35 54 L 14 123/66 06/27/19 11:21 36.4 C L 52 L 14 142/84 H 06/27/19 10:40 36.6 C 54 L 14 137/75 06/27/19 10:25 57 L 12 142/78 H 06/27/19 10:15 36.5 C 53 L 14 152/85 H 06/27/19 10:05 61 15 147/71 H 06/27/19 09:55 63 14 158/86 H 06/27/19 09:45 58 L 15 160/81 H 06/27/19 09:39 36.7 C 56 L 14 177/71 H 06/27/19 07:15 37 C 71 18 131/87 Pulse Ox 06/27/19 11:35 96 06/27/19 11:21 95 06/27/19 10:40 96 06/27/19 10:25 95 06/27/19 10:15 93 06/27/19 10:05 94 06/27/19 09:55 98 06/27/19 09:45 100 06/27/19 09:39 100 06/27/19 07:15 96 Laboratory Results BMP 06/27/19 07:13 Sodium 139 Potassium 3.4 L Chloride 104 Carbon Dioxide 30 BUN 14 Creatinine 0.82 Glucose 108 H Calcium 9.0
[2019-06-27] MEDS: HYDROCODONE/ACETAMOPHEN 5/325MG TAB PO PRN ×3 (12:41→20:31)
[2019-06-27] MEDS ORDERED: POTASSIUM CHLORIDE 20 MEQ TABCR PO ONE (13:00)
[2019-06-27] MEDS ORDERED: FAMOTIDINE 20 MG in SYRINGE 3 ML IV ONE (13:12)
[2019-06-27] MEDS ORDERED: AMITRIPTYLINE HCL 10 MG TAB PO SCH (21:00)
[2019-06-27] MEDS ORDERED: PANTOprazole 40 MG TAB PO SCH (21:00)
[2019-06-28 06:37] LABS: Hematocrit (blood only) 39.7 % (37-47); Hemoglobin 12.9 g/dL (12.0-16.0); Mean Corpuscular Hemoglobin 27.3 pg (25-34); Mean Corpuscular Hgb Conc 32.5 g/dL (32-36); Mean Corpuscular Volume 83.9 fL (80-100); Mean Platelet Volume 11.1 fL (7.4-10.4); Platelet Count 261 K/uL (130-400); RDW Standard Deviation 39.5 fL (36.4-46.3); Red Blood Count 4.73 M/uL (4.2-5.4)
[2019-06-28 07:12] LABS: Alanine Aminotransferase 49 U/L (12-78); Albumin Level 3.5 gm/dl (3.4-5.0); Alkaline Phosphatase 56 U/L (45-117); Aspartate Aminotransferase 36 U/L (15-37); BUN Creatinine Ratio 13.5 (10-20); Bilirubin Direct < 0.1 mg/dl (0-0.2); Bilirubin,Total 0.2 mg/dl (0.2-1); Blood Urea Nitrogen 11 mg/dl (7-18); Calcium 8.9 mg/dl (8.5-10.1); Carbon Dioxide 30 mmol/L (21-32); Chloride 107 mmol/L (98-107); Creatinine Clr Calc Pharmacy 87.8 ml/min; Est GFR (African American) 104.8; Est GFR (Non-African American) 90.4; Glucose 114 mg/dl (70-99); Magnesium 2.1 mg/dl (1.8-2.4); Sodium 140 mmol/L (136-145)
--- NOTE | 2019-06-28 08:09 | Anesthesiology Progress Note ---
Date of Service June 28, 2019 Anesthesia Post Procedure Vital Signs Vital Signs: Temp Pulse Pulse Resp BP BP Pulse Ox 06/28/19 07:43 36.7 C 64 16 143/84 H 117/70 96 06/28/19 07:00 36.7 C 64 16 117/70 96 06/28/19 04:07 36.7 C 73 16 118/68 96 06/27/19 23:30 36.7 C 59 L 18 113/63 97 06/27/19 15:33 36.5 C 61 16 143/84 H 95 06/27/19 13:40 87 14 138/80 95 06/27/19 13:04 64 16 151/84 H 97 06/27/19 11:35 54 L 14 123/66 96 06/27/19 11:21 36.4 C L 52 L 14 142/84 H 95 06/27/19 10:40 36.6 C 54 L 14 137/75 96 06/27/19 10:25 57 L 12 142/78 H 95 06/27/19 10:15 36.5 C 53 L 14 152/85 H 93 06/27/19 10:05 61 15 147/71 H 94 06/27/19 09:55 63 14 158/86 H 98 06/27/19 09:45 58 L 15 160/81 H 100 06/27/19 09:39 36.7 C 56 L 14 177/71 H 100 Pain Intensity Abdomen: Pain Intensity: 7 Notes Mental Status: alert / awake / arousable and participated in evaluation Patient Amnestic to Procedure: Yes Nausea / Vomiting: adequately controlled Pain: adequately controlled Airway Patency, RR, SpO2: stable & adequate BP & HR: stable & adequate Hydration State: stable & adequate Anesthetic Complications: no major complications apparent and Pt Satisfied with anesthetic care
[2019-06-28] MEDS ORDERED: METOPROLOL SUCC 50MG EXT REL TAB PO SCH (09:00)
[2019-06-28] MEDS ORDERED: hydroCHLOROthiazide 25 MG TAB PO SCH (09:00)
--- NOTE | 2019-06-29 09:36 | Discharge Summary ---
DATE OF DISCHARGE: 06/28/2019 PRINCIPAL DIAGNOSIS: Chronic cholecystitis with adhesions. DESCRIPTION OF PROCEDURE: The patient underwent laparoscopic cholecystectomy with lysis of adhesions. HISTORY OF PRESENT ILLNESS: The patient is a 44-year-old female who was in the hospital several months ago with elevated liver function studies found with what was apparent chronic cholecystitis in need of laparoscopic cholecystectomy. She was brought into the hospital on 06/27/2019 where she underwent laparoscopic cholecystectomy as an elective procedure. We did find severe adhesions with gallbladder disease consistent with chronic cholecystitis. She did well from the operation and has done well overnight and is felt stable for discharge home on 06/28/2019 to be followed in the surgical clinic within 1-2 weeks. [place]
== END 2019-06-28 10:24 | disposition home or self-care (01) ==
LOC: 3W 06:53 → ASU 06:53

== ENCOUNTER 2020-07-30 18:05 | Inpatient (IN) ==
--- NOTE | 2020-07-30 18:39 | Emergency Department Note ---
Impression & Plan Right sided weakness, Expressive aphasia, Acute CVA (cerebrovascular accident), History of lupus ED Provider Note NAME: MALCOLM JEAN AGE: 45 SEX: F : 1975 ARRIVES VIA: Walk-In INFORMANT: [Patient][son] ED PROVIDER(S): [Donald Stewart MD] First contact with the patient was at 1830 CHIEF COMPLAINT: Stroke work-up HISTORY OF PRESENT ILLNESS: The patient is a 45-year-old female with lupus. Initially, the report was that early this morning, around 11 hours ago, she was not herself and was having some difficulty walking. Talking to the son, he felt that she was walking fine this morning and he did not notice an issue with her until around 5-1/2 hours ago w hen she began having a limp. It seemed like her right leg was the problem. The son states he believes around 20 minutes ago (1809) she suddenly worsened to the point where she could not move her right arm or right leg and her speech was off. She could not speak properly. He brought her to the ED. The patient is anxious currently, she is slightly tearful. She is trying to speak but cannot find her words. She has no history of stroke. The patient has been in baseline health over the last few days. Since the patient is unable to speak and give a proper history, no further history obtainable. REVIEW OF SYSTEMS: Unobtainable given her difficulty with speech and stroke symptoms. PMHx/PSHx: See Below SOCIAL HISTORY: See Below. PHYSICAL EXAM: GENERAL: Patient is in no acute distress. Anxious, tearful. HEENT: No acute trauma, normocephalic atraumatic, mucous membranes moist, no nasal congestion, no scleral icterus. NECK: No stridor, no adenopathy, no meningismus, trachea is midline. LUNGS: Clear to auscultation bilaterally, no wheeze, no rhonchi, breath sounds equal. HEART: Without murmurs gallops or rubs, regular rate and rhythm. ABDOMEN: Soft, nontender, bowel sounds positive, no hernias, no peritonitis. EXTREMITIES: No cyanosis or edema, full range of motion of all the joints without pain or difficulty, no signs for acute trauma. NEUROLOGIC: Patient is awake and alert. She has minimal movement of the right arm and right leg against gravity. I cannot assess right sided cerebellar function because of her weakness. She attempts to answer questions but finds the wrong words. No speech slur. There is a right facial droop. SKIN: No rash, no jaundice, no diaphoresis. DIFFERENTIAL DIAGNOSIS: Infection, dehydration, metabolic abnormality, hypo/hyperglycemia, electrolyte disturbance, anemia, hypoxia, cardiac sources, intracerebral event, toxicologic issues, stroke, TIA, as well as other pathologies. EMERGENCY DEPARTMENT COURSE/PROCEDURES: ECG: Indication was possible stroke. The ECG shows a normal sinus rhythm with a rate of 82. The QTc is 486. There is no ST elevation, no PVCs. Continuous Cardiac Monitoring: An order was placed for continuous cardiac monitoring. The monitor shows a rate of 80 with normal sinus rhythm. Critical Care Note: I have personally spent 54 minutes of critical care time in the direct management of this patient. This includes bedside care, interpretation of diagnostic studies, and testing, discussion with consultants, patient, and family members, and other required patient management activities. This 54 minutes is in excess of all separately billable procedures. MEDICAL DECISION MAKING: There is no leukocytosis or concerning anemia. There is a normal platelet c ount. No coagulopathy. Potassium somewhat low at 3.2, this value is not in need of emergent correction. There is no kidney failure. No concerning liver enzyme elevation. ECG shows a sinus rhythm, no acute ischemia. Cardiac enzyme testing x1 is not consistent with acute cardiac injury. Influenza and Covid testing returned negative. Chest film did not show pneumonia or CHF. Brain CT did not show any acute bleed or mass-effect. CT angio of the brain and neck were performed and were unremarkable. A repeat brain CT was done after TPA administration, there was no acute bleed seen. The repeat CT was done because she began complaining of a headache. The patient presents about 20 minutes into severe right-sided weakness and expressive aphasia. Her history was somewhat difficult to ascertain as she could not speak well enough to delineate the time of her first symptom onset. The son though feels that it was around 20 minutes ago. The patient was having some trouble with limping earlier in the day but, he feels this was secondary to aches and pains that she typically gets with her lupus. A stroke alert was called. Patient was seen by the [place] stroke neurologist via telemedicine. TPA was recommended. The patient received IV TPA as mentioned above. She was given a 500 cc saline bolus. She did receive IV magnesium, 2 g. She received IV Tylenol for her headache complaint. The patient is being hospitalized for her presentation. She appears to have an acute CVA. She has made some improvement thus far since her TPA administration. As noted above, a repeat CT of the brain was done after her TPA administration as she complained of a mild headache. No bleeding was seen. I spoke to case management, the on-call hospitalist was consulted. I spoke to the patient and her son as well as her about her findings and diagnosis. Past Med/Surg History Medical History Degenerative disc disease lumbar, thoracic GERD (gastroesophageal reflux disease) Hiatal hernia History of migraine Hx of malignant carcinoid tumor s/p appendectomy Hypertension Lupus (systemic lupus erythematosus) dx'd 08/2018, follows with [facility] rheumatology Obesity Stomach ulcer hx Surgical History Fusion of spine 2003 History of section History of colonoscopy History of esophagogastroduodenoscopy (EGD) Hx laparoscopic cholecystectomy (06/27/19) Laparoscopic cholecystectomy with lysis of adhesions. Dr. 06-27-19 Hx of appendectomy Hx of hysterectomy Family History Mother Family hx of colon cancer Son Heart disease s/p heart transplant age 25 Other Cancer Diabetes Hypertension Social History Smoking Status: Former smoker Smoking End Date: 2006; Second Hand Exposure: Yes (FATHER/SPOUSE SMOKED); Hx Alcohol Use: No Hx Substance Use: No Preferred Language: Kiswahili Communication Ability: Effective Social Service Manager Required: No Beliefs That Will Affect Care: None Current Living Situation: Spouse Current Living Situation Comment: lives in two story home with Feels Safe at Home: Yes Assistive Devices: None Allergies Allergies Allergy/AdvReac Type Severity Reaction Status Date / Time hydrocodone Allergy Intermediate Confusion Verified 07/30/20 20:28 [From Lorcet (hydrocodone)] nitrofurantoin Allergy Intermediate Chest Pain Verified 07/30/20 20:28 [From Macrobid] tramadol Allergy Mild Itchiness Verified 07/30/20 20:28 Cephalosporins Allergy Unknown Unknown Verified 07/30/20 20:28 Sulfa (Sulfonamide Allergy Unknown Unknown Verified 07/30/20 20:28 Antibiotics) Home Meds Home Medications Medication Instructions Recorded Confirmed cholecalciferol (vitamin D3) 4,000 units PO QAM 08/27/18 07/30/20 [Vitamin D3] coQ10 (ubiquinol) 200 mg PO QAM 08/27/18 07/30/20 hydrochlorothiazide 12.5 mg PO QAM 08/27/18 07/30/20 hydroxychloroquine 400 mg PO QAM 08/27/18 07/30/20 metoprolol succinate 100 mg PO QAM 08/27/18 07/30/20 omeprazole 40 mg PO DAILY 10/11/18 07/30/20 belimumab [Benlysta] 200 mg SUBCUT WK 03/09/20 07/30/20 cyclobenzaprine 10 mg PO Q8H PRN 03/09/20 07/30/20 Cbd 1,600 mg SUBLINGUAL UD PRN 07/09/20 07/30/20 biotin 5 mg PO DAILY 07/09/20 07/30/20 Results & Data (ED) Vital Signs Vital Signs - 24 hr 07/30/20 18:08 07/30/20 18:45 07/30/20 19:26 Temperature 36.9 C 36.5 C Temperature Source Temporal Artery Scan Oral Pulse Rate 74 Pulse Rate [Apical] 80 76 Pulse Rhythm Regular Pulse Rhythm [Apical] Regular Pulse Strength Normal Pulse Strength [Apical] Normal Respiratory Rate 18 19 18 Respiratory Effort / Characteristics Non-Labored Spontaneous Non-Labored Non-Labored Spontaneous Respiratory Depth Normal Normal Normal Respiratory Pattern Regular Regular Blood Pressure 131/81 Blood Pressure [Right Arm] 168/90 H 160/95 H Blood Pressure Mean 97 Blood Pressure Mean [Right Arm] 116 116 Blood Pressure Position [Right Arm] Sitting Pulse Oximetry 99 99 96 Oxygen Delivery Method Room Air Room Air Room Air Sepsis Recent Fever Within 48 Hours No Sepsis New/Unexplained Change in Mental Status N/A Sepsis Action Taken by Nursing No Action Required 07/30/20 19:41 07/30/20 19:56 07/30/20 20:11 Temperature 36.5 C 36.5 C Temperature Source Oral Oral Pulse Rate Pulse Rate [Apical] 68 69 71 Pulse Rhythm Pulse Rhythm [Apical] Regular Regular Regular Pulse Strength Pulse Strength [Apical] Normal Normal Normal Respiratory Rate 20 18 18 Respiratory Effort / Characteristics Non-Labored Spontaneous Non-Labored Spontaneous Non-Labored Spontaneous Respiratory Depth Normal Normal Normal Respiratory Pattern Regular Regular Regular Blood Pressure Blood Pressure [Right Arm] 141/83 H 135/87 131/71 Blood Pressure Mean Blood Pressure Mean [Right Arm] 102 103 91 Blood Pressure Position [Right Arm] Lying Sitting Pulse Oximetry 97 99 98 Oxygen Delivery Method Room Air Room Air Room Air Sepsis Recent Fever Within 48 Hours Sepsis New/Unexplained Change in Mental Status Sepsis Action Taken by Nursing 07/30/20 20:26 07/30/20 20:41 07/30/20 20:56 Temperature Temperature Source Pulse Rate Pulse Rate [Apical] 67 71 70 Pulse Rhythm Pulse Rhythm [Apical] Regular Regular Regular Pulse Strength Pulse Strength [Apical] Normal Normal Normal Respiratory Rate 18 20 18 Respiratory Effort / Characteristics Non-Labored Spontaneous Non-Labored Spontaneous Non-Labored Spontaneous Respiratory Depth Normal Normal Normal Respiratory Pattern Regular Regular Regular Blood Pressure Blood Pressure [Right Arm] 134/76 126/78 124/88 Blood Pressure Mean Blood Pressure Mean [Right Arm] 95 94 100 Blood Pressure Position [Right Arm] Pulse Oximetry 98 97 98 Oxygen Delivery Method Room Air Room Air Room Air Sepsis Recent Fever Within 48 Hours Sepsis New/Unexplained Change in Mental Status Sepsis Action Taken by Nursing 07/30/20 21:11 07/30/20 21:26 Temperature 36.7 C Temperature Source Oral Pulse Rate Pulse Rate [Apical] 72 68 Pulse Rhythm Pulse Rhythm [Apical] Regular Regular Pulse Strength Pulse Strength [Apical] Normal Normal Respiratory Rate 18 18 Respiratory Effort / Characteristics Non-Labored Spontaneous Non-Labored Spontaneous Respiratory Depth Normal Normal Respiratory Pattern Regular Regular Blood Pressure Blood Pressure [Right Arm] 126/88 142/81 H Blood Pressure Mean Blood Pressure Mean [Right Arm] 100 101 Blood Pressure Position [Right Arm] Sitting Sitting Pulse Oximetry 97 98 Oxygen Delivery Method Room Air Room Air Sepsis Recent Fever Within 48 Hours Sepsis New/Unexplained Change in Mental Status Sepsis Action Taken by [facility] Medications Current Medication List: was personally reviewed by me Laboratory Data Attestation: I reviewed the patient's lab results. Result diagrams: 07/30/20 18:34 07/30/20 18:34 Lab Results 07/30/20 07/30/20 07/30/20 Range/Units 18:34 18:34 18:34 WBC 7.40 (4.8-10.8) K/uL RBC 5.05 (4.2-5.4) M/uL Hgb 14.2 (12.0-16.0) g/dL Hct 42.1 (37-47) % MCV 83.4 (80-100) fL MCH 28.1 (25-34) pg MCHC 33.7 (32-36) g/dL RDW Std Deviation 38.4 (36.4-46.3) fL RDW Coeff of Jose 12.7 (11.5-14.5) % Plt Count 251 (130-400) K/uL MPV 11.0 H (7.4-10.4) fL Immature Gran % (Auto) 0.3 % Neut % (Auto) 43.9 % Lymph % (Auto) 45.3 % [place] % (Auto) 8.6 % Eos % (Auto) 1.5 % Baso % (Auto) 0.4 % Neut # (Auto) 3.25 (1.4-6.5) K/uL Lymph # (Auto) 3.35 (1.2-3.4) K/uL [place] # (Auto) 0.64 H (0.11-0.59) K/uL Eos # (Auto) 0.11 (0-0.5) K/uL Baso # (Auto) 0.03 (0-0.2) K/uL Immature Gran # (Auto) 0.02 (0.00-0.02) K/uL PT 10.8 (9.0-12.0) Seconds INR 1.1 (0.9-1.1) APTT 24.0 (21.0-31.0) Seconds PTT Ratio 0.9 Sodium (136-145) mmol/L Potassium (3.5-5.1) mmol/L Chloride (98-107) mmol/L Carbon Dioxide (21-32) mmol/L Anion Gap (3-11) BUN (7-18) mg/dl Creatinine (0.6-1.2) mg/dl Est Cr Clr Drug Dosing ml/min Est GFR ( Amer) Est GFR (Non-Af Amer) BUN/Creatinine Ratio (10-20) Glucose (70-99) mg/dl Calcium (8.5-10.1) mg/dl Magnesium (1.8-2.4) mg/dl Total Bilirubin (0.2-1) mg/dl AST (15-37) U/L ALT (12-78) U/L Alkaline Phosphatase (45-117) U/L Troponin I (0-0.045) ng/ml Total Protein (6.4-8.2) gm/dl Albumin (3.4-5.0) gm/dl Globulin (2.5-4.0) gm/dl Albumin/Globulin Ratio (0.9-2) COVID-19 Eval Order SARS-CoV-2 (PCR) (Negative) Influenza Type A (PCR) (Neg) Influenza Type B (PCR) (Neg) RSV (RT-PCR) (Neg) Blood Type AB Positive Antibody Screen NEGATIVE 07/30/20 07/30/20 07/30/20 Range/Units 18:34 21:15 21:15 WBC (4.8-10.8) K/uL RBC (4.2-5.4) M/uL Hgb (12.0-16.0) g/dL Hct (37-47) % MCV (80-100) fL MCH (25-34) pg MCHC (32-36) g/dL RDW Std Deviation (36.4-46.3) fL RDW Coeff of Jose (11.5-14.5) % Plt Count (130-400) K/uL MPV (7.4-10.4) fL Immature Gran % (Auto) % Neut % (Auto) % Lymph % (Auto) % [place] % (Auto) % Eos % (Auto) % Baso % (Auto) % Neut # (Auto) (1.4-6.5) K/uL Lymph # (Auto) (1.2-3.4) K/uL [place] # (Auto) (0.11-0.59) K/uL Eos # (Auto) (0-0.5) K/uL Baso # (Auto) (0-0.2) K/uL Immature Gran # (Auto) (0.00-0.02) K/uL PT (9.0-12.0) Seconds INR (0.9-1.1) APTT (21.0-31.0) Seconds PTT Ratio Sodium 140 (136-145) mmol/L Potassium 3.2 L (3.5-5.1) mmol/L Chloride 105 (98-107) mmol/L Carbon Dioxide 30 (21-32) mmol/L Anion Gap 6.0 (3-11) BUN 10 (7-18) mg/dl Creatinine 0.85 (0.6-1.2) mg/dl Est Cr Clr Drug Dosing 80.2 ml/min Est GFR ( Amer) 95.2 Est GFR (Non-Af Amer) 82.2 BUN/Creatinine Ratio 11.3 (10-20) Glucose 114 H (70-99) mg/dl Calcium 9.7 (8.5-10.1) mg/dl Magnesium 2.2 (1.8-2.4) mg/dl Total Bilirubin 0.3 (0.2-1) mg/dl AST 29 (15-37) U/L ALT 47 (12-78) U/L Alkaline Phosphatase 57 (45-117) U/L Troponin I < 0.015 (0-0.045) ng/ml Total Protein 7.4 (6.4-8.2) gm/dl Albumin 4.2 (3.4-5.0) gm/dl Globulin 3.2 (2.5-4.0) gm/dl Albumin/Globulin Ratio 1.3 (0.9-2) COVID-19 Eval Order CovFluRsv at [facility] SARS-CoV-2 (PCR) NEGATIVE (Negative) Influenza Type A (PCR) Negative (Neg) Influenza Type B (PCR) Negative (Neg) RSV (RT-PCR) Negative (Neg) Blood Type Antibody Screen Administered Medications Potassium Chloride 40 meq/ (Sodium Chloride) 1,020 mls @ 50 mls/hr IV .[id number] ONE Stop: 07/31/20 16:41 Last Admin: 07/30/20 21:23 Dose: 50 mls/hr Documented by: [id number] Discontinued Medications Alteplase, Recombinant (Tpa For Stroke) 1 ea IV NOW STA; Protocol Stop: 07/30/20 19:14 Last Admin: 07/30/20 19:30 Dose: Not Given Documented by: [id number] Alteplase, Recombinant 7.6 mg/ (Syringe) 7.6 mls @ 7.6 mls/min IV ONCE ONE Stop: 07/30/20 19:24 Last Admin: 07/30/20 19:23 Dose: 7.6 mls/min Documented by: [id number] Cosigned by: [id number] Alteplase, Recombinant 69 mg/ (EMPTY BAG) 69 mls @ 69 mls/hr IV ONCE ONE Stop: 07/30/20 19:25 Last Infusion: 07/30/20 20:20 Dose: 0 mls/hr Documented by: [id number] Cosigned by: [id number] Admin: 07/30/20 19:25 Dose: 69 mls/hr Documented by: [id number] Cosigned by: [id number] Sodium Chloride (Nss 1000ml) 500 mls @ 999 mls/hr IV .[id number] ONE Stop: 07/30/20 20:11 Last Infusion: 07/30/20 21:46 Dose: 0 mls/hr Documented by: [id number] Admin: 07/30/20 20:50 Dose: 999 mls/hr Documented by: [id number] Magnesium Sulfate/Dextrose (Magnesium Sulfate / D5w) 1 gm in 100 mls @ 200 mls/hr IV Q30M DAGO Stop: 07/30/20 20:40 Last Admin: 07/30/20 21:23 Dose: 200 mls/hr Documented by: [id number] Infusion: 07/30/20 21:20 Dose: 200 mls/hr Documented by: [id number] Admin: 07/30/20 20:50 Dose: 200 mls/hr Documented by: [id number] Ioversol (Optiray 320 125ml) 109 ml IV ONCE ONE Stop: 07/30/20 18:44 Last Admin: 07/30/20 18:43 Dose: 109 ml Documented by: [id number] Imaging Data Radiologist's Impression: UNENHANCED CT OF THE BRAIN; CT ANGIOGRAM OF THE BRAIN; CT ANGIOGRAM OF THE NECK CLINICAL HISTORY: Strokelike symptoms. Right-sided weakness. COMPARISON STUDY: MRI of the brain dated 12/04/2016. TECHNIQUE: Unenhanced axial CT scan of the brain is performed. Subsequently, following the IV administration of 109 of Optiray 320, CT angiogram of the head and neck was performed from the aortic arch to the vertex. Images are reviewed in the axial, sagittal, and coronal planes. 3-D MIPS images are created and assessed. IV contrast was administered without complication. All measurements w ere calculated based on NASCET criteria. A dose lowering technique was utilized adhering to the principles of ALARA. CT DOSE: 1314.41 mGy.cm FINDINGS: Brain parenchyma: The brain parenchyma is normal in appearance. There is no hemorrhage, mass effect, or evidence of acute territorial ischemia by CT criteria. There is no evidence of enhancing mass lesion on the angiogram phase images. The ventricles, sulci, and cisterns are normal in configuration. Hercules- white matter differentiation is preserved. No extra-axial fluid collection is seen. Thoracic aorta: Visualized portions of the thoracic aorta are normal in caliber. The aortic arch demonstrates standard 3-vessel anatomy. Right carotid arterial system: The right common carotid artery is widely patent, as are the right internal and external carotid arteries. Left carotid arterial system: The left common carotid artery is widely patent, as are the left internal and external carotid arteries. Vertebral arteries: The vertebral arteries are widely patent bilaterally noting mild left-sided dominance. Subclavian arteries: Widely patent bilaterally. Intracranial vasculature: The internal carotid arteries are patent at the skull base, as are the anterior and middle cerebral arteries bilaterally. The vertebrobasilar system and posterior cerebral arteries are widely patent. The left vertebral artery is dominant. There is no aneurysm, high-grade stenosis, or focal vessel cut off seen throughout the intracranial circulation. Jugular veins: Patent bilaterally. Dural sinuses: Patent. Lung apices: Partially visualized upper lobe lung parenchyma appears clear. Soft tissues: The visualized pharyngeal soft tissues are normal in appearance noting angiographic phase technique. The oropharyngeal airway appears widely patent. The salivary and thyroid glands are normal in appearance. No cervical lymphadenopathy is seen. Skeletal structures: The calvarium appears intact. The cervical spine is within normal limits. No lytic or blastic lesion is seen. Orbits: The bony orbits are intact. Orbital contents are normal as visualized. Sinuses and mastoids: There is trace mucosal thickening in the left maxillary antrum. The remaining paranasal sinuses are clear. The mastoid air cells are well pneumatized. Dentition: Several dental caries are identified. There is a large periapical lucency involving a left maxillary molar. IMPRESSION: 1. There is no hemorrhage, mass effect, or evidence of acute territorial ischemia by CT criteria. 2. Unremarkable CT angiogram of the brain. 3. Unremarkable CT angiogram of the neck. 4. There are dental caries and a large periapical lucency involving a left maxillary molar. Follow-up with dentistry is recommended. CT SCAN OF THE BRAIN WITHOUT IV CONTRAST CLINICAL HISTORY: Headache status post TPA. COMPARISON STUDY: CT of the brain performed earlier the same day 07/30/2020. TECHNIQUE: Unenhanced axial CT scan of the brain is performed from the vertex to the skull base. A dose lowering technique was utilized adhering to the principles of ALARA. The examination is degraded by residual IV contrast. CT DOSE: 1187.41 mGycm FINDINGS: Brain parenchyma: The brain parenchyma is normal in appearance. There is no hemorrhage, mass effect, or evidence of acute territorial ischemia by CT criteria. Hercules-white matter differentiation is preserved. No extra-axial fluid collection is seen. Ventricles, sulci, cisterns: Normal in configuration. Intracranial vasculature: The visualized intracranial vasculature at the skull base is normal in appearance. Calvarium: Unremarkable. Sinuses and mastoids: The visualized paranasal sinuses are clear. The mastoid air cells are well pneumatized. Orbits: The bony orbits are grossly intact. IMPRESSION: There is no hemorrhage, mass effect, or evidence of acute territorial ischemia by CT criteria. Note that assessment for hemorrhage is degraded by residual IV contrast throughout the intracranial circulation. SINGLE VIEW CHEST CLINICAL HISTORY: Strokelike symptoms. FINDINGS: An AP, portable, upright chest radiograph is compared to study dated 07/09/2020. The cardiomediastinal silhouette is unremarkable. The lungs and pleural spaces are clear. No pneumothorax is seen. The bony thorax is grossly intact. Cholecystectomy clips are noted in the right upper quadrant. IMPRESSION: No active disease in the chest. Discharge Plan Visit Data Chief Complaint: Stroke/CVA Symptoms Stated Complaint: RIGHT SIDE NUMBNESS ED Provider: Donald Stewart Discharge Problem: Right sided weakness, Expressive aphasia, Acute CVA (cerebrovascular accident), History of lupus Patient Disposition: Admitted As Inpatient Condition: Serious Forms Stand Alone Forms: [employer] Prescriptions Prescriptions: No Action omeprazole 40 mg Capsule,Delayed Release(Dr/Ec) 40 mg PO DAILY RF: 0 cyclobenzaprine 10 mg Tablet 10 mg PO Q8H PRN (Reason: Muscle Spasm) RF: 0 Benlysta 200 mg/mL Auto-Injector 200 mg SUBCUT WK RF: 0 metoprolol succinate 100 mg Tablet Extended Release 24 Hr 100 mg PO QAM RF: 0 hydrochlorothiazide 25 mg Tablet 12.5 mg PO QAM RF: 0 hydroxychloroquine 200 mg tablet 400 mg PO QAM RF: 0 cholecalciferol (vitamin D3) [Vitamin D3] 2,000 unit Capsule 4,000 units PO QAM RF: 0 coQ10 (ubiquinol) 200 mg Capsule 200 mg PO QAM RF: 0 biotin 5 mg Tablet 5 mg PO DAILY RF: 0 Cbd 1,600 mg sublingual UD PRN (Reason: Anxiety) RF: 0 Referrals Referrals: Elizabeth Floyd MD [Primary Care Provider] -
[2020-07-30] MEDS ORDERED: OPTIRAY 320 125ml IV ONE (18:43)
[2020-07-30 18:54] LABS: Basophils # (auto) 0.03 K/uL (0-0.2); Basophils % (auto) 0.4 %; Eosinophils # (auto) 0.11 K/uL (0-0.5); Eosinophils % (auto) 1.5 %; Hematocrit (blood only) 42.1 % (37-47); Hemoglobin 14.2 g/dL (12.0-16.0); Immature Granulocytes # (auto) 0.02 K/uL (0.00-0.02); Immature Granulocytes % (auto) 0.3 %; Lymphocytes # (auto) 3.35 K/uL (1.2-3.4); Lymphocytes % (auto) 45.3 %; Mean Corpuscular Hemoglobin 28.1 pg (25-34); Mean Corpuscular Hgb Conc 33.7 g/dL (32-36); Mean Corpuscular Volume 83.4 fL (80-100); Monocytes # (auto) 0.64 K/uL (0.11-0.59); Monocytes % (auto) 8.6 %; Neutrophils # (auto) 3.25 K/uL (1.4-6.5); Neutrophils % (auto) 43.9 %; Platelet Count 251 K/uL (130-400); RDW Coefficient of Variation 12.7 % (11.5-14.5); RDW Standard Deviation 38.4 fL (36.4-46.3); Red Blood Count 5.05 M/uL (4.2-5.4)
--- NOTE | 2020-07-30 18:56 | CT Scan Report ---
UNENHANCED CT OF THE BRAIN; CT ANGIOGRAM OF THE BRAIN; CT ANGIOGRAM OF THE NECK CLINICAL HISTORY: Strokelike symptoms. Right-sided weakness. COMPARISON STUDY: MRI of the brain dated 12/04/2016. TECHNIQUE: Unenhanced axial CT scan of the brain is performed. Subsequently, following the IV adminis tration of 109 of [address] 320, CT angiogram of the head and neck was performed from the aortic arch t o the vertex. Images are reviewed in the axial, sagittal, and coronal planes. 3-D MIPS images are cre ated and assessed. IV contrast was administered without complication. All measurements were calculate d based on NASCET criteria. A dose lowering technique was utilized adhering to the principles of ALA RA. CT DOSE: 1314.41 mGy.cm FINDINGS: Brain parenchyma: The brain parenchyma is normal in appearance. There is no hemorrhage, mass effect, or evidence of acute territorial ischemia by CT criteria. There is no evidence of enhancing mass lesi on on the angiogram phase images. The ventricles, sulci, and cisterns are normal in configuration. Gr ay-white matter differentiation is preserved. No extra-axial fluid collection is seen. Thoracic aorta: Visualized portions of the thoracic aorta are normal in caliber. The aortic arch demo nstrates standard 3-vessel anatomy. Right carotid arterial system: The right common carotid artery is widely patent, as are the right int ernal and external carotid arteries. Left carotid arterial system: The left common carotid artery is widely patent, as are the left internal grinding machine operator al and external carotid arteries. Vertebral arteries: The vertebral arteries are widely patent bilaterally noting mild left-sided domin ance. Subclavian arteries: Widely patent bilaterally. Intracranial vasculature: The internal carotid arteries are patent at the skull base, as are the ante rior and middle cerebral arteries bilaterally. The vertebrobasilar system and posterior cerebral cruz michelle are widely patent. The left vertebral artery is dominant. There is no aneurysm, high-grade steno sis, or focal vessel cut off seen throughout the intracranial circulation. Jugular veins: Patent bilaterally. Dural sinuses: Patent. Lung apices: Partially visualized upper lobe lung parenchyma appears clear. Soft tissues: The visualized pharyngeal soft tissues are normal in appearance noting angiographic pha se technique. The oropharyngeal airway appears widely patent. The salivary and thyroid glands are nor mal in appearance. No cervical lymphadenopathy is seen. Skeletal structures: The calvarium appears intact. The cervical spine is within normal limits. No lyt ic or blastic lesion is seen. Orbits: The bony orbits are intact. Orbital contents are normal as visualized. Sinuses and mastoids: There is trace mucosal thickening in the left maxillary antrum. The remaining p aranasal sinuses are clear. The mastoid air cells are well pneumatized. Dentition: Several dental caries are identified. There is a large periapical lucency involving a left maxillary molar. IMPRESSION: 1. There is no hemorrhage, mass effect, or evidence of acute territorial ischemia by CT criteria. 2. Unremarkable CT angiogram of the brain. 3. Unremarkable CT angiogram of the neck. 4. There are dental caries and a large periapical lucency involving a left maxillary molar. Follow-up with dentistry is recommended. ACT 112: Negative or not required by law. Electronically signed by: Donald Roca M.D. 07/30/2020 6:55 PM
[2020-07-30 19:05] LABS: INR 1.1 (0.9-1.1); Partial Thromboplastin Ratio 0.9; Prothrombin Time 10.8 Seconds (9.0-12.0)
[2020-07-30 19:11] LABS: Alanine Aminotransferase 47 U/L (12-78); Albumin Level 4.2 gm/dl (3.4-5.0); Aspartate Aminotransferase 29 U/L (15-37); BUN Creatinine Ratio 11.3 (10-20); Blood Urea Nitrogen 10 mg/dl (7-18); Calcium 9.7 mg/dl (8.5-10.1); Carbon Dioxide 30 mmol/L (21-32); Chloride 105 mmol/L (98-107); Creatinine Clr Calc Pharmacy 80.2 ml/min; Est GFR (African American) 95.2; Est GFR (Non-African American) 82.2; Glucose 114 mg/dl (70-99); Magnesium 2.2 mg/dl (1.8-2.4); Potassium 3.2 mmol/L (3.5-5.1); Sodium 140 mmol/L (136-145)
[2020-07-30] MEDS ORDERED: TPA for Stroke IV STA (19:13)
[2020-07-30 19:15] LABS: Albumin Globulin Ratio 1.3 (0.9-2); Alkaline Phosphatase 57 U/L (45-117); Bilirubin,Total 0.3 mg/dl (0.2-1); Globulin 3.2 gm/dl (2.5-4.0); Total Protein 7.4 gm/dl (6.4-8.2); Troponin I < 0.015 ng/ml (0-0.045)
[2020-07-30] MEDS ORDERED: No Aspirin within 24 hrs of TPA for Stroke PO SCH (19:15)
[2020-07-30] MEDS ORDERED: ALTEPLASE BOLUS IV ONE (19:23)
[2020-07-30] MEDS ORDERED: RECOMBINANT IV ONE (19:24)
[2020-07-30] MEDS ORDERED: ALTEPLASE IV ONE (19:24)
[2020-07-30] MEDS ORDERED: PRIMARY PLUMSET, PE LINED TUBING, 113 IN, NON-DEHP (2260-0500) IV ONE (19:24)
[2020-07-30] MEDS ORDERED: SODIUM CHLORIDE 0.9% 1000ML 500 ML IV ONE (19:41)
[2020-07-30] MEDS ORDERED: POTASSIUM CHLORIDE 40 MEQ in SODIUM CHLORIDE 0.9% 1000ML 1,000 ML IV ONE (20:18)
--- NOTE | 2020-07-30 20:21 | History & Physical Report ---
Date of Service July 30, 2020 Assessment & Plan (1) Acute right-sided weakness: (2) Expressive aphasia: (3) Lupus (systemic lupus erythematosus): (4) Hypertension: (5) History of migraine: This is a 45yo F with a PMH of HTN, SLE, history of migraines and other medical problems listed below who presents with R sided weakness and expressive aphasia. Assessment and plan per Dr. Calvo's addendum. History of Present Illness Chief Complaint: R sided weakness Primary Care Provider: Elizabeth Floyd MD This is a 45yo F with a PMH of HTN, SLE, history of migraines and other medical problems listed below who presents with R sided weakness starting this morning. Had some difficulty walking earlier today with a bit of a limp with R leg. Then 20-25 minutes prior to presentation in ED, patient's family notes significant weakness of both R leg and arm as well as difficulty with word finding and speech. Was brought to ED and stroke alert called. CT head, CTA head and neck without hemorrhage, mass effect, or evidence of acute territorial ischemia by CT criteria. Tpa was administered. Now experiencing left sided headache. CT head w as repeated but no hemorrhage, mass effect, or evidence of acute territorial ischemia by CT criteria. Feels some strength returning in R arm and leg as well as improvement to speech. Paresthesias in RUE. Feels like cognition is slowed down and having difficulty with speech. Denies chest pain, SOB, abdominal pain, dysuria, diarrhea or constipation. Denies any personal stroke history. Allergies Allergy/AdvReac Type Severity Reaction Status Date / Time hydrocodone Allergy Intermediate Confusion Verified 07/30/20 20:28 [From Lorcet (hydrocodone)] nitrofurantoin Allergy Intermediate Chest Pain Verified 07/30/20 20:28 [From Macrobid] tramadol Allergy Mild Itchiness Verified 07/30/20 20:28 Cephalosporins Allergy Unknown Unknown Verified 07/30/20 20:28 Sulfa (Sulfonamide Allergy Unknown Unknown Verified 07/30/20 20:28 Antibiotics) Home Medications Medication Instructions Recorded Confirmed Type cholecalciferol (vitamin D3) 4,000 units PO QAM 08/27/18 07/30/20 History [Vitamin D3] coQ10 (ubiquinol) 200 mg PO QAM 08/27/18 07/30/20 History hydrochlorothiazide 12.5 mg PO QAM 08/27/18 07/30/20 History hydroxychloroquine 400 mg PO QAM 08/27/18 07/30/20 History metoprolol succinate 100 mg PO QAM 08/27/18 07/30/20 History omeprazole 40 mg PO DAILY 10/11/18 07/30/20 History belimumab [Benlysta] 200 mg SUBCUT WK 03/09/20 07/30/20 History cyclobenzaprine 10 mg PO Q8H PRN 03/09/20 07/30/20 History Cbd 1,600 mg SUBLINGUAL UD PRN 07/09/20 07/30/20 History biotin 5 mg PO DAILY 07/09/20 07/30/20 History Past Med/Surg History Medical History Degenerative disc disease lumbar, thoracic GERD (gastroesophageal reflux disease) Hiatal hernia History of migraine Hx of malignant carcinoid tumor s/p appendectomy Hypertension Lupus (systemic lupus erythematosus) dx'd 08/2018, follows with [facility] [place] Obesity Stomach ulcer hx Surgical History Fusion of spine 2004 History of section History of colonoscopy History of esophagogastroduodenoscopy (EGD) Hx laparoscopic cholecystectomy (06/27/19) Laparoscopic cholecystectomy with lysis of adhesions. Dr. 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 Physical Exam Physical Exam: General Appearance: WD/WN, vitals as above, NAD, sitting up in bed, anxious, tearful Head: normocephalic, atraumatic Eyes: normal inspection, PERRL, conjunctivae normal, anicteric sclerae ENT: external ear and nose normal, oropharynx normal Neck: normal visual inspection, trachea midline, no thyromegaly Respiratory: normal respiratory effort, lungs clear to auscultation, no wheeze, rales, rhonchi. No accessory muscle use Cardiovascular: regular rate, rhythm, no murmur, normal peripheral pulses, no BLE edema. Vessels: no JVD Chest: normal inspection of chest Abdomen/GI: normal bowel sounds, soft, nontender, no hepatosplenomegaly Extremities/Musculoskeletal: no cyanosis or clubbing, RUE 4/5, RLE 3/5. LUE and LLE 5/5 HUGO Neurologic: PERRL, EOMI, accommodation nl, + mild R facial droop, + expressive aphasia, CN's II-XI grossly intact bilaterally and moves all extremities although requires considerably more effort on right side. Unable to assess rapid alternating movements or gait 2/2 weakness. Psychiatric: A+Ox3, anxious Skin: no rashes, normal color, warm/dry Results & Data Results & Data ([facility]) Vital Signs (Past 12 Hours) Vital Signs Temp Pulse Pulse Resp BP BP Pulse Ox 07/30/20 19:56 36.5 C 69 18 135/87 99 07/30/20 19:41 36.5 C 68 20 141/83 H 97 07/30/20 19:26 36.5 C 76 18 160/95 H 96 07/30/20 18:45 80 19 168/90 H 99 07/30/20 18:08 36.9 C 74 18 131/81 99 Laboratory Results Short CBC 07/30/20 Range/Units 18:34 WBC 7.40 (4.8-10.8) K/uL Hgb 14.2 (12.0-16.0) g/dL Hct 42.1 (37-47) % Plt Count 251 (130-400) K/uL BMP 07/30/20 18:34 Sodium 140 Potassium 3.2 L Chloride 105 Carbon Dioxide 30 BUN 10 Creatinine 0.85 Glucose 114 H Calcium 9.7 Cardiac Enzymes 07/30/20 Range/Units 18:34 Troponin I < 0.015 (0-0.045) ng/ml Liver Function 07/30/20 Range/Units 18:34 Total Bilirubin 0.3 (0.2-1) mg/dl AST 29 (15-37) U/L ALT 47 (12-78) U/L Alkaline Phosphatase 57 (45-117) U/L Albumin 4.2 (3.4-5.0) gm/dl Diagnostic Findings CT head without contrast/ CTA head/ CTA neck: IMPRESSION: 1. There is no hemorrhage, mass effect, or evidence of acute territorial ischemia by CT criteria. 2. Unremarkable CT angiogram of the brain. 3. Unremarkable CT angiogram of the neck. 4. There are dental caries and a large periapical lucency involving a left maxillary molar. Follow-up with dentistry is recommended. ECG Rhythm: normal sinus Findings: + prolonged QT Supervising Physician Co-Signing Physician Notes IM ATTENDING : Patient seen and examined. History obtained from patient, family, and records. History somewhat limited from patient secondary to aphasia. Preceding documentation by Ms. Lashawn Holbrook PA-C reviewed. 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 Lovenox 40 mg SQ daily 24 hours post TPA if no bleed Full code. Text document was generated using Clar[employer] voice recognition software. It may contain grammatical or spelling errors. Kindly contact undersigned for clarification of any documentation item in question.
--- NOTE | 2020-07-30 20:49 | CT Scan Report ---
CT SCAN OF THE BRAIN WITHOUT IV CONTRAST CLINICAL HISTORY: Headache status post TPA. COMPARISON STUDY: CT of the brain performed earlier the same day 07/30/2020. TECHNIQUE: Unenhanced axial CT scan of the brain is performed from the vertex to the skull base. A d ose lowering technique was utilized adhering to the principles of ALARA. The examination is degraded by residual IV contrast. CT DOSE: 1187.41 mGycm FINDINGS: Brain parenchyma: The brain parenchyma is normal in appearance. There is no hemorrhage, mass effect, or evidence of acute territorial ischemia by CT criteria. Hercules-white matter differentiation is preser yasmeen. No extra-axial fluid collection is seen. Ventricles, sulci, cisterns: Normal in configuration. Intracranial vasculature: The visualized intracranial vasculature at the skull base is normal in appe arance. Calvarium: Unremarkable. Sinuses and mastoids: The visualized paranasal sinuses are clear. The mastoid air cells are well pneu matized. Orbits: The bony orbits are grossly intact. IMPRESSION: There is no hemorrhage, mass effect, or evidence of acute territorial ischemia by CT crit eria. Note that assessment for hemorrhage is degraded by residual IV contrast throughout the intracra nial circulation. ACT 112: Negative or not required by law. Electronically signed by: Donald Roca M.D. 07/30/2020 8:48 PM
[2020-07-30] MEDS: MAGNESIUM SULFATE / D5W 1 GM/100 ML BAG IV SCH ×2 (20:50→21:23)
--- NOTE | 2020-07-30 20:53 | XRay Report ---
SINGLE VIEW CHEST CLINICAL HISTORY: Strokelike symptoms. FINDINGS: An AP, portable, upright chest radiograph is compared to study dated 07/09/2020. The cardiome diastinal silhouette is unremarkable. The lungs and pleural spaces are clear. No pneumothorax is seen . The bony thorax is grossly intact. Cholecystectomy clips are noted in the right upper quadrant. IMPRESSION: No active disease in the chest. ACT 112: Negative or not required by law. Electronically signed by: Donald Roca M.D. 07/30/2020 8:51 PM
[2020-07-30] MEDS ORDERED: ACETAMINOPHEN 1,000 MG/100 ML VIAL IV STA (21:53)
[2020-07-30 22:12] LABS: Influenza A virus by PCR Negative (Neg); Influenza B virus by PCR Negative (Neg); RSV by PCR Negative (Neg); SARS CoV2 RNA(COVID-19) InHosp NEGATIVE (Negative)
[2020-07-30] MEDS ORDERED: ICU PROTOCOL FOR HYPERGLYCEMIA PRN (23:05)
[2020-07-30] MEDS ORDERED: PROMETHAZINE HCL 12.5 MG in SODIUM CHLORIDE 0.9% 50 ML IV PRN (23:05)
[2020-07-30] MEDS ORDERED: LORazepam 0.25 MG/0.5 ML VIAL IV PRN (23:05)
[2020-07-30] MEDS ORDERED: PHARMACIST DISCHARGE MED REC CONSULT PRN (23:05)
[2020-07-30] MEDS ORDERED: MoRPHine SULFATE 2 MG/ML CARP IV PRN (23:05)
--- NOTE | 2020-07-31 00:06 | Critical Care Consultation ---
Date of Consultation July 30, 2020 Assessment & Plan (1) Acute CVA (cerebrovascular accident): Reason Critically Ill: 45-year-old female presents to the ICU following code stroke with TPA administration Neuro - Suspected acute CVApatient with acute right-sided weakness and numbness and ex pressive aphasia, TPA administered at 1927 today -CT head/CTA head neck: no hemorrhage, mass effect, or evidence of acute territorial ischemia by CT criteria.; Unremarkable CT angiogram of the brain.; Unremarkable CT angiogram of the neck. -Patient did experience left-sided headache in the ED and was taken for repeat CT of the head which was also unremarkable -Follow-up MRI and echo -Speech, PT, OT -Follow-up neurology recommendations regarding ASA, Plavix -Allow permissive hypertension with goal SBP 140-180 -Continue frequent neuro exams and monitor in ICU per 24-hour TPA protocol Cardiac - NSR on monitor, troponin negative Hemodynamics stable, allow permissive hypertension Continuous monitor on telemetry Respiratory - Lungs clear to auscultation, currently maintaining oxygen saturation on room air Continuous monitoring on pulse ox GI - N.p.o. until cleared by speech. Follow-up swallow study GERDIV famotidine RENAL/LYTES - Creatinine within normal limits, monitor routine BMPs and replete electrolytes as indicated Continue IV fluids while n.p.o. - Strict I's and O's ENDO - No history of diabetes or thyroid disease -A1c pending -ICU hyperglycemic protocol SLEcontinue home meds when cleared for swallow. HEME - H&H within normal limits, no current signs of bleeding we will monitor closely following TPA administration ID - No indication for infectious process at this time LINES/IV ACCESS - Peripheral IVs DVT PROPHYLAXIS - SCDs, no anticoagulation for 24 hours following TPA administration I have personally spent 33 minutes of critical care time in the direct management of this patient. This is a life/limb threatening event. This includes time spent evaluating patient, direct bedside care, chart review, placing orders, interpretation of diagnostic studies, discussion with consultants, patient, and family members, as well as other required patient management activities. This time is exclusive of all separately billable procedures, and teaching time and separate from and in addition to any other critical care service time. Thank you for allowing us to participate in the care of this patient. Please refer to my attending physician's documentation for any further recommendations. (2) History of migraine: (3) Expressive aphasia: (4) Acute right-sided weakness: (5) GERD (gastroesophageal reflux disease): (6) Lupus (systemic lupus erythematosus): History of Present Illness Attending Physician: Dee Dee Araujo DO History of Present Illness 45-year-old female with PMH including HTN, SLE, history of migraines, GERD who presented to the emergency department this evening as a code stroke. Patient claire d begun to have right-sided weakness that started in the morning with difficulty walking earlier in the day and a slight limp in the right leg. Approximately 20 to 25 minutes prior to arrival to the ED the patient began to have an acute onset of significant right-sided weakness in the right leg and arm as well as aphasia and right-sided facial droop. She underwent CT head and CTA of the head and neck which were unremarkable. TPA administered at 1926 this evening. Patient did experience left-sided headache down to the ED and she was taken for repeat CT head which was negative for hemorrhage or mass-effect. Patient transferred to the ICU for 24-hour monitoring following TPA for post TPA administration protocol. On arrival to the ICU the patient is alert and answering questions and inte ractions seem appropriate with regard to moderate expressive aphasia. She has a mild right-sided facial droop and significant right-sided weakness with partial loss of sensation on the right side as well. headache symptoms have now resolved and she denies dizziness or syncope, visual changes, recent illness, shortness of breath, chest pain or palpitations, abdominal pain, nausea vomiting or diarr hea. Patient to remain in ICU until 24-hour CT at approximately 1930 tomorrow afternoon. We will follow-up MRI and echo results as well. Allergies Allergy/AdvReac Type Severity Reaction Status Date / Time hydrocodone Allergy Intermediate Confusion Verified 07/30/20 20:28 [From Lorcet (hydrocodone)] nitrofurantoin Allergy Intermediate Chest Pain Verified 07/30/20 20:28 [From Macrobid] tramadol Allergy Mild Itchiness Verified 07/30/20 20:28 Cephalosporins Allergy Unknown Unknown Verified 07/30/20 20:28 Sulfa (Sulfonamide Allergy Unknown Unknown Verified 07/30/20 20:28 Antibiotics) Home Medications Medication Instructions Recorded Confirmed Type cholecalciferol (vitamin D3) 4,000 units PO QAM 08/27/18 07/30/20 History [Vitamin D3] coQ10 (ubiquinol) 200 mg PO QAM 08/27/18 07/30/20 History hydrochlorothiazide 12.5 mg PO QAM 08/27/18 07/30/20 History hydroxychloroquine 400 mg PO QAM 08/27/18 07/30/20 History metoprolol succinate 100 mg PO QAM 08/27/18 07/30/20 History omeprazole 40 mg PO DAILY 10/11/18 07/30/20 History belimumab [Benlysta] 200 mg SUBCUT WK 03/09/20 07/30/20 History cyclobenzaprine 10 mg PO Q8H PRN 03/09/20 07/30/20 History Cbd 1,600 mg SUBLINGUAL UD PRN 07/09/20 07/30/20 History biotin 5 mg PO DAILY 07/09/20 07/30/20 History Patient History Medical History Degenerative disc disease lumbar, thoracic GERD (gastroesophageal reflux disease) Hiatal hernia History of migraine Hx of malignant carcinoid tumor s/p appendectomy Hypertension Lupus (systemic lupus erythematosus) dx'd 08/2018, [place] [facility] Obesity Stomach ulcer hx Surgical History Fusion of spine 2003 History of section History of colonoscopy History of esophagogastroduodenoscopy (EGD) Hx laparoscopic cholecystectomy (06/27/19) Laparoscopic cholecystectomy with lysis of adhesions. Dr. 06-27-19 Hx of appendectomy Hx of hysterectomy Family History Mother Family hx of colon cancer Son Heart disease s/p heart transplant age 25 Other Cancer Diabetes Hypertension Social History Smoking Status: Never smoker Smoking End Date: 2006; Second Hand Exposure: Yes (FATHER/SPOUSE SMOKED); Hx Alcohol Use: No Hx Substance Use: No Preferred Language: Cuban Communication Ability: Impaired Communication Ability Comment: new expressive aphasia and confusion Multi Disciplined Language Analyst Required: No Beliefs That Will Affect Care: None Current Living Situation: Spouse and Family Current Living Situation Comment: lives in two story home with Feels Safe at Home: Yes Safety Concerns: Feels Safe At This Time Assistive Devices: Glasses Review of Systems Review of Systems: All systems reviewed & are unremarkable except as noted in HPI & below Physical Exam Constitutional: cooperative and comfortable Eyes: PERRL, conjunctivae normal, anicteric sclerae ENMT: external ear and nose normal, oropharynx normal Neck: trachea midline, no thyromegaly Respiratory: normal respiratory effort, lungs clear to auscultation Cardiovascular: RRR, no murmur, no edema Heart Sounds: normal S1 and normal S2 Vessels: no JVD Extremities: normal capillary refill; no edema Gastrointestinal (Abdomen): normal bowel sounds, soft, nontender, no hepatosplenomegaly Skin: no rashes, warm and dry Neurologic: + focal motor deficit and awake; not confused and not obtunded Speech / Cognition: + expressive aphasia Motor/Sensory: + pronator drift (Right upper extremity) Cranial Nerves: PERRL, normal accommodation, EOM intact bilaterally, tongue midline, normal hearing, able to rotate head bilaterally and no nystagmus; + abnormal facial strength (Right-sided facial droop and weakness with right-sided numbness) Coordination: + abnormal ikcewq-[id number] test (Only on right upper extremity) and + abnormal doqh-yi-[id number] test (Only abnormal in right lower extremity) Results & Data Results & Data ([facility]) Vital Signs (Past 12 Hours) Vital Signs Temp Pulse Pulse Resp BP BP Pulse Ox 07/30/20 22:56 37.1 C 58 L 22 154/67 H 98 07/30/20 22:26 36.6 C 63 20 145/90 H 97 07/30/20 21:56 67 20 139/95 100 07/30/20 21:26 68 18 142/81 H 98 07/30/20 21:11 36.7 C 72 18 126/88 97 07/30/20 20:56 70 18 124/88 98 07/30/20 20:41 71 20 126/78 97 07/30/20 20:26 67 18 134/76 98 07/30/20 20:11 71 18 131/71 98 07/30/20 19:56 36.5 C 69 18 135/87 99 07/30/20 19:41 36.5 C 68 20 141/83 H 97 07/30/20 19:26 36.5 C 76 18 160/95 H 96 07/30/20 18:45 80 19 168/90 H 99 07/30/20 18:08 36.9 C 74 18 131/81 99 Coding Level of Care Code Critical Care 1st 30-74 mins Diagnoses Acute CVA (cerebrovascular accident) I63.9 History of migraine Z86.69 Expressive aphasia R47.01 Acute right-sided weakness R53.1 GERD (gastroesophageal reflux disease) K21.9 Lupus (systemic lupus erythematosus) M32.9
[2020-07-31] MEDS ORDERED: No Aspirin within 24 hrs of TPA for Stroke SCH (00:30)
[2020-07-31 02:13] LABS: Hematocrit (blood only) 39.5 % (37-47); Hemoglobin 13.6 g/dL (12.0-16.0); Mean Corpuscular Hemoglobin 28.6 pg (25-34); Mean Corpuscular Hgb Conc 34.4 g/dL (32-36); Mean Corpuscular Volume 83.2 fL (80-100); Mean Platelet Volume 11.2 fL (7.4-10.4); Platelet Count 279 K/uL (130-400); RDW Coefficient of Variation 12.9 % (11.5-14.5); RDW Standard Deviation 39.5 fL (36.4-46.3); Red Blood Count 4.75 M/uL (4.2-5.4); White Blood Count 7.59 K/uL (4.8-10.8)
[2020-07-31 02:28] LABS: Basophils # (auto) 0.02 K/uL (0-0.2); Basophils % (auto) 0.3 %; Eosinophils # (auto) 0.08 K/uL (0-0.5); Eosinophils % (auto) 1.1 %; Immature Granulocytes # (auto) 0.02 K/uL (0.00-0.02); Immature Granulocytes % (auto) 0.3 %; Lymphocytes # (auto) 3.26 K/uL (1.2-3.4); Monocytes # (auto) 0.52 K/uL (0.11-0.59); Monocytes % (auto) 6.9 %; Neutrophils # (auto) 3.69 K/uL (1.4-6.5); Neutrophils % (auto) 48.4 %
[2020-07-31 02:34] LABS: BUN Creatinine Ratio 10.7 (10-20); Calcium 8.5 mg/dl (8.5-10.1); Creatinine Clr Calc Pharmacy 90.8 ml/min; Est GFR (Non-African American) 94.1; Potassium 3.9 mmol/L (3.5-5.1)
[2020-07-31] MEDS: ACETAMINOPHEN 1,000 MG/100 ML VIAL IV PRN ×2 (04:40→19:10)
[2020-07-31] MEDS: FAMOTIDINE 20 MG in SYRINGE 3 ML IV SCH ×2 (06:01→20:58)
[2020-07-31 06:40] LABS: Estimated Average Glucose 111 mg/dl; Hemoglobin A1C 5.5 % (4.5-5.6)
--- NOTE | 2020-07-31 07:07 | Magnetic Resonance Report ---
MRI OF THE BRAIN WITHOUT CONTRAST CLINICAL HISTORY: Cerebrovascular accident. Right-sided weakness and numbness. COMPARISON STUDY: MRI of the brain December 04, 2016. Head CT and CTA of the head performed earlier tozain jordan. TECHNIQUE: Utilizing a 1.5 Alisson magnet and dedicated coil, multiplanar, multiecho imaging of the bra in was performed without IV contrast. FINDINGS: There are no foci of restricted diffusion to suggest acute infarct. No acute intracranial h emorrhage, midline shift or mass effect is present. Brain volume is normal. Ventricular system is nor mal. Basilar cisterns are patent. There are no extra-axial collections. Flow-voids for the major intr acranial vessels are present. No intracranial masses identified on this unenhanced exam. Interval sma ll white matter T2 hyperintense foci measuring up to 4 mm are similar to MRI December 04, 2016. Calvaria l signal is normal. Orbits are unremarkable. IMPRESSION: 1. No acute intracranial findings. 2. No significant change since MRI of December 04, 2016. Stable small white matter T2 hyperintense which could reflect mild small vessel disease or sequela of migraine headaches. ACT 112: Negative or not required by law. Electronically signed by: Keaton Wells M.D. 07/31/2020 7:06 AM
--- NOTE | 2020-07-31 08:03 | Critical Care Progress Note ---
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 She received TPA last night. Continue close ICU monitoring for 24 hours. MRI imaging not indicative of stroke. Will need a CT head 24 hours after TPA was given. Possible atypical migraine presentation. Neurology consultation pending. Will obtain echocardiogram with bubble study. Speech, PT and OT consultations placed. Continue with aspirin daily. Replacing electrolytes per the ICU protocol. Lipid panel has been checked. A1c pending. (2) Expressive aphasia: (3) Dizziness: (4) Received intravenous tissue plasminogen activator (tPA) in emergency department: Admission and Anticipated Discharge Date Admission Date: July 30, 2020 Subjective Patient seen and examined this morning. She was sleeping when I came into the room. She denies any headache symptoms presently, but feels that she had a headache earlier in the morning. She still has right upper extremity weakness and right lower extremity weakness. She did have some dizziness. She denies any visual disturbances at present. She failed her bedside swallow overnight. Review of Systems Review of Systems: All systems reviewed & are unremarkable except as noted in HPI & below Physical Exam Constitutional: WD/WN, vitals as above ENMT: external ear and nose normal, oropharynx normal Respiratory: normal respiratory effort, lungs clear to auscultation Cardiovascular: RRR, no murmur, no edema Gastrointestinal (Abdomen): normal bowel sounds, soft, nontender, no hepatosplenomegaly Musculoskeletal: no cyanosis or clubbing, extremities motor strength 5/5 Neurologic: Mild upper extremity and right lower extremity weakness Psychiatric: A+Ox3, euthymic affect Results & Data Results & Data ([facility]) Vital Signs (Past 12 Hours) Vital Signs Temp Pulse Pulse Resp BP BP Pulse Ox 07/31/20 07:26 55 L 16 130/60 96 07/31/20 06:26 73 20 148/57 H 98 07/31/20 05:26 58 L 16 148/73 H 97 07/31/20 04:26 74 18 119/80 95 07/31/20 04:00 97.9 F 07/31/20 03:26 63 16 150/70 H 97 07/31/20 02:56 77 16 134/86 98 07/31/20 02:26 65 16 141/74 H 95 07/31/20 01:56 63 18 159/80 H 97 07/31/20 01:26 68 18 151/88 H 97 07/31/20 00:56 61 16 130/88 97 07/30/20 23:56 61 12 136/79 98 07/30/20 23:26 62 16 146/77 H 95 07/30/20 22:56 98.8 F 61 58 L 22 154/67 H 154/67 H 98 07/30/20 22:26 97.9 F 63 20 145/90 H 97 07/30/20 21:56 67 20 139/95 100 07/30/20 21:26 68 18 142/81 H 98 07/30/20 21:11 98.1 F 72 18 126/88 97 07/30/20 20:56 70 18 124/88 98 07/30/20 20:41 71 20 126/78 97 07/30/20 20:26 67 18 134/76 98 07/30/20 20:11 71 18 131/71 98 reviewed the vital signs, labs and imaging Coding Level of Care Code 29251 Subseq Hosp Care Lvl 3 Diagnoses Right sided weakness R53.1 Expressive aphasia R47.01 Dizziness R42 Received intravenous tissue plasminogen activator (tPA) in emergency department Z92.82
[2020-07-31] MEDS ORDERED: HYDROXYCHLOROQUINE SULFATE 200 MG TAB PO SCH (09:00)
--- NOTE | 2020-07-31 09:21 | Neurology Consultation ---
Date of Consultation July 31, 2020 Assessment & Plan (1) Right sided weakness: 1. MRI - no acute findings 2. permissive blood pressure 3. tPa given repeat CT head 24 hours 4. then start plavix 75 mg and aspirin 81 mg daily, 21 days- then stop plavix and continue aspirin for life 5. then optimize HTN, HLD LDL <70 6. PT/OT speech for discharge needs 7. TTE no ASD 8. hypercoag labs ordered and sed rate. 9. follow up with neurology 4-6 weeks after discharge Elisabeth Greene [facility] [place] [facility] Present on Admission?: Yes (2) Expressive aphasia: 1. speech evaluation Present on Admission?: Yes (3) Received intravenous tissue plasminogen activator (tPA) in emergency department: 1. as above Present on Admission?: Yes (4) Acute CVA (cerebrovascular accident): 1. no evidence on MRI Present on Admission?: Yes Supervising Physician Co-Signing Physician Notes I have seen and discussed above patient with Dr Elisabeth Almanzar, neurology. Patient is seen and examined history reviewed images reviewed I have reviewed her outpatient chart as well she saw one of our providers for hemianesthesia in January although the patient indicates that it was the right body I thought the chart had indicated that was the left body. She indicates at that time the face was not involved. The presumptive diagnosis was a migrainous event at that time. Patient has been in her usual state of health she went on Benlysta in the fall 2019 yesterday she noted some typical pain in her foot and then while seated numbness and tingling of the right foot leg hand and face it was reported that there was a facial droop and word finding difficulty the patient indicates that she only has partial memory of the event and remembers becoming alert in the emergency room her neurologic symptoms have improved but have persisted apparently she developed a left-sided headache in the emergency room after receiving TPA She has a history of a miscarriage no history of DVT or PE rheumatic fever or murmur. There is no family history of early stroke her mother's uncle may have had a DVT while she denies any ongoing headaches or history of migraine per se [facility] neurology has referred her to headache clinic in the past. Patient notes that she has only rarely had headaches not throbbing headaches and never headache with neurologic symptoms She is otherwise been well has not had any fevers chills sweats weight loss change in mentation there have been no thunderclap headache. On exam she is awake and alert speech and language are normal and her affect is appropriate naming is normal there is normal extraocular motility visual ramesh and facial symmetry. There is decreased sensation to light touch in the right face. There is normal bulk and tone. Right upper extremity is 3+ to 4 out of 5 there is a drift but no pronation. Rapid alternating movements in the right upper extremity are low amplitude but accurate. There is a component of giveaway weakness. Right lower extremity movement is about 3 out of 5 also with a component of giveaway and a positive Carlin sign. There is no asymmetry to reflexes and toes are downgoing [id number] is normal patient cannot perform [id number] on the right. There is no calf swelling or tenderness peripheral pulses are intact in the feet. No peripheral embolic phenomenon are noted Impression: Neurologic deficit hemianesthesia and some hemiparesis some delayed headache suggestive of a migrainous event especially given the normalcy of the MRI of the brain and no acute abnormalities. There is no evidence of demyelinating disease nor PML. I doubt patient has central nervous system vasculitis and history is not consistent with a reversible vasoconstriction event or PRES. This could be an atypical stroke (i.e. normal imaging) although there are some nonphysiologic features on exam. If the neurologic symptoms persist I would recommend a follow-up MRI of the brain in 1 to 2 weeks. 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 Patient will need a cardiac cath lab technologist for 2 weeks which can be arranged post discharge Once greater than 24 hours have passed and the CT of the head shows no evidence of hemorrhage dual antiplatelet therapy with Plavix and aspirin would be reasonable and then after 3 weeks discontinue Plavix. Gradual control of blood pressure. Start statin with goal LDL of 70 or less Will need to clarify patient's history of headache somewhat better. She denies ongoing headaches although if we think this is a possible migrainous event it may be reasonable to place her on something prophylactic, even riboflavin and magnesium could be helpful History of Present Illness Reason for Consultation: stroke Requesting Physician: Mykel Lam MD Attending Physician: Mykel Lam MD History of Present Illness Korin is a 45 year old female with PMH- HTN, SLE, history of migraines who presented to [facility] with R sided weakness. She some difficulty walking earlier today with a bit of a limp with R leg. Then 20-25 minutes prior to presentation in ED, patient's family notes significant weakness of both R leg and arm as well as difficulty with word finding and speech. A stroke alert called. CT head, CTA head and neck without hemorrhage, mass effect, or evidence of acute territorial ischemia by CT criteria. She was given tPa . She then had a left sided headache a repeat CT head showed no hemorrhage, mass effect, or evidence of acute territorial ischemia by CT criteria. She is improved but still having issues with right sided weakness and word finding issues. denies CP, SOB, abdominal pain, bowel or bladder issues, neck pain. Allergies Allergy/AdvReac Type Severity Reaction Status Date / Time hydrocodone Allergy Intermediate Confusion Verified 07/30/20 20:28 [From Lorcet (hydrocodone)] nitrofurantoin Allergy Intermediate Chest Pain Verified 07/30/20 20:28 [From Macrobid] tramadol Allergy Mild Itchiness Verified 07/30/20 20:28 Cephalosporins Allergy Unknown Unknown Verified 07/30/20 20:28 Sulfa (Sulfonamide Allergy Unknown Unknown Verified 07/30/20 20:28 Antibiotics) Home Medications Medication Instructions Recorded Confirmed Type cholecalciferol (vitamin D3) 4,000 units PO QAM 08/27/18 07/30/20 History [Vitamin D3] coQ10 (ubiquinol) 200 mg PO QAM 08/27/18 07/30/20 History hydrochlorothiazide 12.5 mg PO QAM 08/27/18 07/30/20 History hydroxychloroquine 400 mg PO QAM 08/27/18 07/30/20 History metoprolol succinate 100 mg PO QAM 08/27/18 07/30/20 History omeprazole 40 mg PO DAILY 10/11/18 07/30/20 History belimumab [Benlysta] 200 mg SUBCUT WK 03/09/20 07/30/20 History cyclobenzaprine 10 mg PO Q8H PRN 03/09/20 07/30/20 History Cbd 1,600 mg SUBLINGUAL UD PRN 07/09/20 07/30/20 History biotin 5 mg PO DAILY 07/09/20 07/30/20 History Patient History Medical History (Updated 07/31/20 @ 08:06 by Richard Munoz MD) Degenerative disc disease lumbar, thoracic GERD (gastroesophageal reflux disease) Hiatal hernia History of migraine Hx of malignant carcinoid tumor s/p appendectomy Hypertension Lupus (systemic lupus erythematosus) dx'd 08/2018, [place] [facility] [place] Obesity Received intravenous tissue plasminogen activator (tPA) in emergency department Stomach ulcer hx Surgical History Fusion of spine 2003 History of section History of colonoscopy History of esophagogastroduodenoscopy (EGD) Hx laparoscopic cholecystectomy (06/27/19) Laparoscopic cholecystectomy with lysis of adhesions. Dr. 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 Beliefs That Will Affect Care: None Current Living Situation: Spouse and Family Current Living Situation Comment: lives in two story home with Feels Safe at Home: Yes Safety Concerns: Feels Safe At This Time Assistive Devices: Glasses Review of Systems Review of Systems: All systems reviewed & are unremarkable except as noted in HPI & below Physical Exam Physical Exam: Physical Exam: Constitutional: appearance over nourished Ears, Nose, Mouth and Throat: mucous membranes moist, no injection and skin normal, eyes normal Cardiovascular: normal S-1 and S-2 and regular rate and rhythm Respiratory: clear to auscultation (CTA) and no rales, ronchi or wheeze Musculoskeletal: no peripheral edema and good distal pulses Skin: no stigmata of neurocutaneous disease noted and normal and intact Eyes: extraocular muscles intact (EOMI) and pupils equal, round and reactive to light (PERRL), gross peripheral ramesh intact NEUROLOGIC EXAMINATION: Mental status: Alert and interactive Oriented to full date and location Oriented to person Speech dysphasia word finding issues no slurred speech Cranial Nerves smile eye brow raise symmetric Reflexes: Deep tendon reflexes were symmetrical and graded 2/5. downgoing toes Sensory: unable to feel light cool vibration right foot Coordination: finger to nose intact on right but slow Gait/Stance: Posture lying in bed. 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 right 4+/5, left 5/5, hip flex left 5/5 right 2/5 plantar flex ext right 5/5 left 4/5 Results & Data ([facility]) Vital Signs (Past 12 Hours) Vital Signs Temp Pulse Pulse Resp BP BP Pulse Ox 07/31/20 08:26 69 16 126/86 97 07/31/20 07:26 55 L 16 130/60 96 07/31/20 06:26 73 20 148/57 H 98 07/31/20 05:26 58 L 16 148/73 H 97 07/31/20 04:26 74 18 119/80 95 07/31/20 04:00 36.6 C 07/31/20 03:26 63 16 150/70 H 97 07/31/20 02:56 77 16 134/86 98 07/31/20 02:26 65 16 141/74 H 95 07/31/20 01:56 63 18 159/80 H 97 07/31/20 01:26 68 18 151/88 H 97 07/31/20 00:56 61 16 130/88 97 07/30/20 23:56 61 12 136/79 98 07/30/20 23:26 62 16 146/77 H 95 07/30/20 22:56 37.1 C 61 58 L 22 154/67 H 154/67 H 98 07/30/20 22:26 36.6 C 63 20 145/90 H 97 07/30/20 21:56 67 20 139/95 100 07/30/20 21:26 68 18 142/81 H 98 Laboratory Results Abnormal lab results 07/30/20 07/30/20 07/31/20 Range/Units 18:34 18:34 01:56 MPV 11.0 H 11.2 H (7.4-10.4) fL [place] # (Auto) 0.64 H (0.11-0.59) K/uL Potassium 3.2 L (3.5-5.1) mmol/L Chloride (98-107) mmol/L Glucose 114 H (70-99) mg/dl POC Glucose (70-99) mg/dl Triglycerides (0-150) mg/dl Cholesterol (0-200) mg/dl 07/31/20 07/31/20 Range/Units 01:56 05:41 MPV (7.4-10.4) fL [place] # (Auto) (0.11-0.59) K/uL Potassium (3.5-5.1) mmol/L Chloride 111 H (98-107) mmol/L Glucose (70-99) mg/dl POC Glucose 33 L* (70-99) mg/dl Triglycerides 157 H (0-150) mg/dl Cholesterol 222 H (0-200) mg/dl Diagnostic Findings CT head, CTA head/neck- there is no hemorrhage, mass effect, or evidence of acute territorial ischemia by CT criteria. Unremarkable CT angiogram of the brain. Unremarkable CT angiogram of the neck. MRI brain-. No acute intracranial findings. No significant change since MRI of December 04, 2016. Stable small white matter T2 hyperintense which could reflect mild small vessel disease or sequela of migraine headaches. TTE 60-65% no ASD
[2020-07-31] MEDS ORDERED: METOPROLOL SUCC 50MG EXT REL TAB PO STA (14:01)
--- NOTE | 2020-07-31 14:57 | Electrocardiogram Report ---
Test Reason : Blood Pressure : / mmHG Vent. Rate : 082 BPM Atrial Rate : 082 BPM P-R Int : 166 ms QRS Dur : 088 ms QT Int : 416 ms P-R-T Axes : 047 001 035 degrees QTc Int : 486 ms Normal sinus rhythm Prolonged QT Abnormal ECG When compared with ECG of 09-JUL-2020 13:04, Vent. rate has increased BY 31 BPM Confirmed by Jordan Nunes ([id number]) on 07/31/2020 2:57:29 PM Referred By: REFERRED SELF Confirmed By:Jordan Nunes
--- NOTE | 2020-07-31 16:27 | Hospitalist Progress Note ---
Date of Service July 31, 2020 Assessment & Plan (1) Acute right-sided weakness: Patient is 45-year-old female with a past medical history of SLE, hypertension, migraines presented to the ED with right-sided weakness and expressive aphasia. S/p TPA on 07/30. CT head/CTA was negative on admission. CT angiogram was not concerning. MRI was obtained which was negative for any acute findings. Appreciate neurology input and recommendation. Transthoracic echo: No significant valvular pathology, no evidence of ASD, LV is normal in size, EF is 60 to 65%, RV systolic function is normal, left and right atria are normal Permissive hypertension with a systolic blood pressure goal of 1 40-1 80. Continue the aspirin/Plavix. Aspirin and Plavix for 21 days and then aspirin alone Hemoglobin A1c-5.5 Lipid panel : Triglyceride 157, cholesterol 222, LDL 148 ,VLDL 31 and HDL 43 Work with PT/OT and speech therapy.-PT recommended she will require 24-hour care even if she goes home (2) Expressive aphasia: No significant clear but he still has minimal difficulties in finding words (3) Lupus (systemic lupus erythematosus): No acute flareup of SLE We will continue Plaquenil (4) Hypertension: Controlled now (5) History of migraine: denies any significant history of migraines DVT prophylaxis SCDs, status post TPA CODE STATUS Full Admission and Anticipated Discharge Date Admission Date: July 30, 2020 Subjective Patient is doing okay this morning. She is awake, alert and oriented x3. Does report headache. Reports her right-sided weakness is improving. Speech his improving. She is able to grabs objects now able to write. Denies any chest pain at the moment or any shortness of breath. Denies any abdominal pain, diarrhea or dysuria. Denies any slurred speech. Denies any visual blurriness. Review of Systems Review of Systems: All systems reviewed & are unremarkable except as noted in HPI & below Physical Exam Physical Exam: General: A&Ox3 HENT: NCAT, MMM, EOMI Eyes: PERRLA Neck: Supple, normal range of motion CVS: normal rate and rhythm Resp: b/l good breath sounds Abdomen: Soft, ND/NT Extremities: No c/c/e Neuro: face symmetric,RUE and RLE weakness appreciated, no deficit appreciated on the left side, expressive aphasia noted Skin: warm and dry, no rashes/lesions/errythema MSK: normal ROM, no joint swelling/erythema Results & Data Results & Data ([facility]) Vital Signs (Past 12 Hours) Vital Signs Pulse Resp BP Pulse Ox 07/31/20 15:26 67 16 152/89 H 96 07/31/20 14:26 80 12 149/91 H 96 07/31/20 13:26 76 12 113/89 97 07/31/20 12:26 68 12 116/69 95 07/31/20 11:26 75 12 117/59 L 97 07/31/20 10:26 72 12 138/68 95 07/31/20 09:26 68 12 141/62 H 97 07/31/20 08:26 69 16 126/86 97 07/31/20 07:26 55 L 16 130/60 96 07/31/20 06:26 73 20 148/57 H 98 07/31/20 05:26 58 L 16 148/73 H 97 07/31/20 04:26 74 18 119/80 95
[2020-07-31] MEDS ORDERED: POTASSIUM CHLORIDE 20 MEQ in LACTATED RINGER'S 1,000 ML IV SCH (17:00)
--- NOTE | 2020-07-31 19:56 | CT Scan Report ---
HEAD CT NONCONTRAST CT DOSE: 537.48 mGy.cm HISTORY: post 24 hr TPA TECHNIQUE: Multiaxial CT images of the head were performed without the use of intravenous contrast. A utomated exposure control was utilized for this study. A dose lowering technique was utilized adheri ng to the principles of ALARA. Comparison: Head CT 07/30/2020. Findings: The paranasal sinuses and mastoid air cells are clear. The calvarium and skull base are int act. The ventricles and sulci are within normal limits. There is no mass, hematoma, midline shift, or acute infarct. Impression: No acute intracranial abnormality. ACT 112: Negative or not required by law. Electronically signed by: Cryus Campos M.D. 07/31/2020 7:55 PM
[2020-07-31] MEDS ORDERED: GADOBUTROL 65ML VIAL IV ONE (20:19)
[2020-07-31] MEDS ORDERED: ACETAMINOPHEN 325 MG TAB PO PRN (21:45)
--- NOTE | 2020-08-01 08:33 | Magnetic Resonance Report ---
MRI OF THE CERVICAL SPINE COMBO CLINICAL HISTORY: Right hemiparesis. COMPARISON STUDY: CT angiogram of the neck dated 07/30/2020. TECHNIQUE: MRI of the cervical spine is performed utilizing various T1 and T2-weighted sequences in t he axial and sagittal planes. Contrast-enhanced sequences were acquired following the IV administrati on of 8 mL of Gadavist. FINDINGS: Cervical spine: Vertebral body height and alignment are maintained throughout the cervical spine. Nor mal marrow signal intensity is preserved throughout the visualized bony structures. The atlantodental articulation is maintained. The spinous processes are intact. No destructive bony lesion is seen. Intervertebral disc: There is mild degenerative disc desiccation seen throughout the cervical spine. Minimal loss of height is noted at C5-C6 and C6-C7. Spinal cord: The cervical spinal cord is normal in morphology and signal intensity. No abnormal postc ontrast enhancement is identified. C2-C3: Mild facet arthropathy is of no consequence. C3-C4: Uncovertebral and facet arthropathy contribute to severe left-sided neural foraminal stenosis. The right neural foramen is clear, as is the central canal. C4-C5: Uncovertebral and facet arthropathy cause mild to moderate left neural foraminal stenosis. The right neural foramen and the central canal are clear. C5-C6: A posterior disc osteophyte complex minimally effaces the ventral subarachnoid space. Uncovert ebral and facet arthropathy cause mild bilateral neural foraminal stenosis. C6-C7: A right lateral disc herniation minimally effaces the right aspect of the subarachnoid space a nd causes severe right neural foraminal stenosis. This impinges on the exiting right C7 nerve root. U ncovertebral and facet arthropathy cause mild left neural foraminal stenosis. There is no significant central canal stenosis. C7-T1: Unremarkable. Soft tissues: The prevertebral and paraspinous soft tissues are normal as visualized. Brain parenchyma: The imaged brain parenchyma at the skull base is normal as imaged. IMPRESSION: 1. The cervical spinal cord is normal in morphology and signal intensity. No abnormal postcontrast en hancement is identified. 2. There is no significant central canal stenosis. 3. A right lateral disc herniation at C6-C7 causes severe right-sided neural foraminal stenosis and i mpinges on the exiting right C7 nerve root. 4. See discussion for detailed level by level analysis. Dictated: 08/01/2020 8:01 AM Transcribed: 08/01/2020 8:26 AM Michelle [id number] [facility] Electronically signed by: Donald Roca M.D. 08/01/2020 8:31 AM
[2020-08-01] MEDS ORDERED: ENOXAPARIN INJ 40 MG/0.4 ML SYR SQ SCH (09:00)
[2020-08-01] MEDS ORDERED: ASPIRIN 81 MG ECTAB PO SCH (09:00)
[2020-08-01] MEDS ORDERED: CLOPIDOGREL BISULFATE 75 MG TAB PO SCH (09:00)
[2020-08-01] MEDS ORDERED: ATORVASTATIN 20 MG TAB PO SCH (09:00)
--- NOTE | 2020-08-01 12:59 | Hospitalist Progress Note ---
Date of Service August 01, 2020 Assessment & Plan (1) Acute right-sided weakness: Patient is 45-year-old female with a past medical history of SLE, hypertension, migraines presented to the ED with right-sided weakness and expressive aphasia. S/p TPA on 07/30. CT head/CTA was negative on admission. CT angiogram was not concerning. MRI was obtained which was negative for any acute findings. Appreciate neurology input and recommendation. Transthoracic echo: No significant valvular pathology, no evidence of ASD, LV is normal in size, EF is 60 to 65%, RV systolic function is normal, left and right atria are normal Permissive hypertension with a systolic blood pressure goal of 1 40-1 80. Continue the aspirin/Plavix. Aspirin and Plavix for 21 days and then aspirin alone Hemoglobin A1c-5.5 Lipid panel : Triglyceride 157, cholesterol 222, LDL 148 ,VLDL 31 and HDL 43 Work with PT/OT and speech therapy.-PT recommended she will require 24-hour care even if she goes home (2) Expressive aphasia: No significant clear but he still has minimal difficulties in finding words (3) Lupus (systemic lupus erythematosus): No acute flareup of SLE We will continue Plaquenil (4) Hypertension: Controlled now (5) History of migraine: denies any significant history of migraines DVT prophylaxis SCDs, status post TPA CODE STATUS Full Admission and Anticipated Discharge Date Admission Date: July 30, 2020 Subjective 08/01/2020 The patient was seen and examined in medical telemetry unit She is a 45 years old female with SLE, hypertension, migraines was admitted with right-sided weakness and expressive a fascia and is status post TPA on 07/30 Her expressive aphasia is better though with occasional forgetfulness in finding words For right-sided weakness has improved a lot She wants to go home today Review of Systems Review of Systems: All systems reviewed and are unremarkable except as noted below Neurologic: + gait abnormality (Persisting right sided weakness), + unsteadiness and + abnormal speech (Difficulty in finding words); no tremor(s) Physical Exam Physical Exam: Lying in bed comfortably Constitutional: well developed and well nourished; no acute distress and not ill appearing Eyes: PERRL, conjunctivae normal, anicteric sclerae ENMT: external ear and nose normal, oropharynx normal Neck: trachea midline, no thyromegaly Respiratory: no respiratory distress Auscultation: lungs clear to auscultation bilaterally Cardiovascular: Rate/Rhythm: regular rate and regular rhythm Heart Sounds: no murmur Extremities: no edema Gastrointestinal (Abdomen): Inspection/Auscultation: normal bowel sounds; abdomen not distended Percussion/Palpation: abdomen soft; abdomen nontender Musculoskeletal: No acute arthritis in any joint Neurologic: + focal motor deficit (Right-sided weakness); not confused Speech / Cognition: + expressive aphasia (Difficulty in finding words at times) Motor/Sensory: no tremor Psychiatric: A+Ox3, euthymic affect Lymphatic: no cervical or axillary lymphadenopathy Results & Data Results & Data ([facility]) Vital Signs (Past 12 Hours) Vital Signs Temp Pulse Pulse Resp BP Pulse Ox 08/01/20 11:37 36.5 C 66 18 139/87 97 08/01/20 07:35 36.5 C 62 18 143/84 H 97 08/01/20 07:16 60 08/01/20 03:57 36.7 C 60 16 156/89 H 96 Medications Administered Current Inpatient Medications Acetaminophen (Acetaminophen 325 Mg Tab) 650 mg PO Q6H PRN PRN Reason: Fever Stop: 08/30/20 21:44 Aspirin (Aspirin 81 Mg Ectab) 81 mg PO [facility] Stop: 08/29/20 08:59 Last Admin: 08/01/20 08:29 Dose: 81 mg Documented by: Atorvastatin Calcium (Atorvastatin 20 Mg Tab) 20 mg PO [facility] Stop: 08/31/20 08:59 Last Admin: 08/01/20 08:30 Dose: 20 mg Documented by: Clopidogrel Bisulfate (Clopidogrel Bisulfate 75 Mg Tab) 75 mg PO [facility] Stop: 08/31/20 08:59 Last Admin: 08/01/20 08:29 Dose: 75 mg Documented by: Enoxaparin Sodium (Enoxaparin Inj 40 Mg/0.4 Ml Syr) 40 mg SQ [facility] Stop: 08/31/20 08:59 Last Admin: 08/01/20 08:28 Dose: 40 mg Documented by: Hydroxychloroquine Sulfate (Hydroxychloroquine Sulfate 200 Mg Tab) 400 mg PO [facility] Stop: 08/30/20 08:59 Promethazine HCl 12.5 mg/ (Sodium Chloride) 50.5 mls @ 202 mls/hr IV Q6H PRN PRN Reason: Nausea And Vomiting Stop: 08/29/20 23:04 Miscellaneous Information (Pharmacist Discharge Med Rec Consult) 1 ea N/A UD PRN PRN Reason: Consult Stop: 08/29/20 23:04
[2020-08-01] MEDS ORDERED: CALCIUM CARBONATE 500 MG CHEWABLE TAB PO PRN (13:21)
--- NOTE | 2020-08-01 15:17 | Neurology Progress Note ---
Date of Service August 01, 2020 Assessment & Plan (1) Right sided weakness: 1. MRI brain and c spine no acute findings 2. permissive blood pressure 3. tPa given repeat CT head 24 hours- no acute bleed 4. then start plavix 75 mg and aspirin 81 mg daily, 21 days- then stop plavix and continue aspirin for life 5. then optimize HTN, HLD LDL <70 6. PT/OT speech for discharge needs 7. TTE no ASD 8. hypercoag labs ordered and sed rate. -pending 9. follow up with neurology 4-6 weeks after discharge Elisabeth Greene PAC will follow up with MRI in 2 weeks. (2) Expressive aphasia: 1. speech evaluation (3) Received intravenous tissue plasminogen activator (tPA) in emergency department: 1. as above (4) Acute CVA (cerebrovascular accident): 1. no evidence on MRI 2. will follow up in 2 weeks with follow up MRI brain to r/o stroke 3. presumed complex migraine but can not r/o small vessel stroke Admission and Anticipated Discharge Date Admission Date: July 30, 2020 Supervising Physician Co-Signing Physician Notes I have discussed above patient with Dr Elisabeth Almanzar, neurology. Discussed with Arleth BAPTISTE, agree with management as above. ALISE Almanzar MD Shar Langley is a 45 year old female with PMH- HTN, SLE, history of migraines who presented to [facility] with R sided weakness. She some difficulty walking earlier today with a bit of a limp with R leg. Then 20-25 minutes prior to presentation in ED, patient's family notes significant weakness of both R leg and arm as well as difficulty with word finding and speech. A stroke alert called. CT head, CTA head and neck without hemorrhage, mass effect, or evidence of acute territorial ischemia by CT criteria. She was given tPa . She then had a left sided headache a repeat CT head showed no hemorrhage, mass effect, or evidence of acute territorial ischemia by CT criteria. She is improved and having less shuddering with her words and she has been up several times walking in [place] with her walker. She is anxious to get discharged. denies CP, SOB, abdominal pain, bowel or bladder issues, neck pain. Review of Systems Review of Systems: All systems reviewed & are unremarkable except as noted in HPI & below Physical Exam Physical Exam: Physical Exam: Constitutional: appearance over nourished Ears, Nose, Mouth and Throat: mucous membranes moist, no injection and skin normal, eyes normal Cardiovascular: normal S-1 and S-2 and regular rate and rhythm Respiratory: clear to auscultation (CTA) and no rales, ronchi or wheeze Musculoskeletal: no peripheral edema and good distal pulses Skin: no stigmata of neurocutaneous disease noted and normal and intact Eyes: extraocular muscles intact (EOMI) and pupils equal, round and reactive to light (PERRL), gross peripheral ramesh intact NEUROLOGIC EXAMINATION: Mental status: Alert and interactive Oriented to full date and location Oriented to person Speech dysphasia- improved word finding issues no slurred speech Cranial Nerves smile eye brow raise symmetric Reflexes: Deep tendon reflexes were symmetrical and graded 2/5. downgoing toes Sensory: unable to feel light cool vibration right foot Coordination: finger to nose intact on right but slow Gait/Stance: Posture lying in bed. 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 No abnormal postcontrast enhancement is identified. There is no significant central canal stenosis. A right lateral disc herniation at C6-C7 causes severe right-sided neural foraminal stenosis and impinges on the exiting right C7 nerve root. repeat CT head- no hemorrhage
[2020-08-01] MEDS ORDERED: STROKE PATIENT DISCHARGE STA (16:00)
--- NOTE | 2020-08-01 16:27 | Pharmacy Report ---
Pharmacist Stroke Counseling - Date of Service August 01, 2020 - Scope: Pharmacy has been consulted to provide medication discharge counseling for this patient admitted with ischemic stroke as per the Pharmacist Discharge Counseling for Stroke Patients Protocol. - Medications on Discharge: Home Medications Medication Instructions Recorded Confirmed cholecalciferol (vitamin D3) 4,000 units PO QAM 08/27/18 07/30/20 [Vitamin D3] coQ10 (ubiquinol) 200 mg PO QAM 08/27/18 07/30/20 hydrochlorothiazide 12.5 mg PO QAM 08/27/18 07/30/20 hydroxychloroquine 400 mg PO QAM 08/27/18 07/30/20 metoprolol succinate 100 mg PO QAM 08/27/18 07/30/20 omeprazole 40 mg PO DAILY 10/11/18 07/30/20 belimumab [Benlysta] 200 mg SUBCUT WK 03/09/20 07/30/20 cyclobenzaprine 10 mg PO Q8H PRN 03/09/20 07/30/20 Cbd 1,600 mg SUBLINGUAL UD PRN 07/09/20 07/30/20 biotin 5 mg PO DAILY 07/09/20 07/30/20 New Rx's Medication Instructions Recorded aspirin 81 mg PO QAM 30 Days #30 tab 08/01/20 atorvastatin 20 mg PO QAM 30 Days #30 tab 08/01/20 clopidogrel 75 mg PO QAM 18 Days #18 tab 08/01/20 pantoprazole [Protonix] 40 mg PO DAILY #30 tab 08/01/20 - Action: The above medications, specifically ones for stroke treatment/prophylaxis, have been reviewed in detail with the patient prior to discharge. This includes indication, common adverse reactions, drug interactions, and medication administration. Medication counseling has been employed using the teach-back method to ensure understanding. - Outcome: The patient demonstrated understanding of the medications. Additional comments: Spoke over the phone with patient today- she was very pleasant and receptive to counseling. Reviewed new medications to prevent stroke including Aspirin, simvastatin, plavix, & stopping prilosec for protonix . Discussed why they are being used and common side effects in great detail. Reviewed how to use the medications, what to do if doses are missed, common drug interactions, common side effects, what to watch out for while using the medications. Pt verbalized understanding and restated the pro points of each medication. She understands the Plavix therapy is only for 21 days total. She asked about DI b/w her lupus med Plaquenil and the new meds. I assured her there was none reported. She asked if prescriptions would be sent to her usual pharmacy [facility] on [address]. This looked like it was done. Thank you for allowing pharmacy to be involved in the care of this patient. Please call [phone] with any additional questions
--- NOTE | 2020-08-02 07:46 | Discharge Summary ---
Date of Service August 02, 2020 Admission HPI Per Admitting Provider This is a 45yo F with a PMH of HTN, SLE, history of migraines and other medical problems listed below who presents with R sided weakness starting this morning. Had some difficulty walking earlier today with a bit of a limp with R leg. Then 20-25 minutes prior to presentation in ED, patient's family notes significant weakness of both R leg and arm as well as difficulty with word finding and speech. Was brought to ED and stroke alert called. CT head, CTA head and neck without hemorrhage, mass effect, or evidence of acute territorial ischemia by CT criteria. Tpa was administered. Now experiencing left sided headache. CT head was repeated but no hemorrhage, mass effect, or evidence of acute territorial ischemia by CT criteria. Feels some strength returning in R arm and leg as well as improvement to speech. Paresthesias in RUE. Feels like cognition is slowed down and having difficulty with speech. Denies chest pain, SOB, abdominal pain, dysuria, diarrhea or constipation. Denies any personal stroke history. Admission Exam Per Admitting Provider Physical Exam: General Appearance: WD/WN, vitals as above, NAD, sitting up in bed, anxious, tearful Head: normocephalic, atraumatic Eyes: normal inspection, PERRL, conjunctivae normal, anicteric sclerae ENT: external ear and nose normal, oropharynx normal Neck: normal visual inspection, trachea midline, no thyromegaly Respiratory: normal respiratory effort, lungs clear to auscultation, no wheeze, rales, rhonchi. No accessory muscle use Cardiovascular: regular rate, rhythm, no murmur, normal peripheral pulses, no BLE edema. Vessels: no JVD Chest: normal inspection of chest Abdomen/GI: normal bowel sounds, soft, nontender, no hepatosplenomegaly Extremities/Musculoskeletal: no cyanosis or clubbing, RUE 4/5, RLE 3/5. LUE and LLE 5/5 HUGO Neurologic: PERRL, EOMI, accommodation nl, + mild R facial droop, + expressive aphasia, CN's II-XI grossly intact bilaterally and moves all extremities although requires considerably more effort on right side. Unable to assess rapid alternating movements or gait 2/2 weakness. Psychiatric: A+Ox3, anxious Skin: no rashes, normal color, warm/dry Principal Diagnosis Right-sided weakness, presumed complex migraine: Cannot rule out small vessel stroke, SLE, hypertension Discharge Exam Constitutional well developed and well nourished; no acute distress and not ill appearing Eyes PERRL, conjunctivae normal, anicteric sclerae ENMT external ear and nose normal, oropharynx normal Neck trachea midline, no thyromegaly Respiratory no respiratory distress Auscultation: lungs clear to auscultation bilaterally Cardiovascular Rate/Rhythm: regular rate and regular rhythm Heart Sounds: no murmur Extremities: no edema Gastrointestinal (Abdomen) Inspection/Auscultation: normal bowel sounds; abdomen not distended Percussion/Palpation: abdomen soft; abdomen nontender Neurologic + focal motor deficit (Right-sided weakness); not confused Speech / Cognition: + expressive aphasia (Difficulty in finding words at times) Motor/Sensory: no tremor Psychiatric A+Ox3, euthymic affect Lymphatic no cervical or axillary lymphadenopathy Discharge Data Allergies Allergy/AdvReac Type Severity Reaction Status Date / Time hydrocodone Allergy Intermediate Confusion Verified 07/30/20 20:28 [From Lorcet (hydrocodone)] nitrofurantoin Allergy Intermediate Chest Pain Verified 07/30/20 20:28 [From Macrobid] tramadol Allergy Mild Itchiness Verified 07/30/20 20:28 Cephalosporins Allergy Unknown Unknown Verified 07/30/20 20:28 Sulfa (Sulfonamide Allergy Unknown Unknown Verified 07/30/20 20:28 Antibiotics) Consultations 07/30/20 19:46 ED Decision to Admit Stat 07/30/20 23:05 Consult Polisher And Buffer Routine Consult Neurology Routine Ordered Studies 07/30/20 18:34 CT angio head w con Stat CT angio neck with con Stat CT head/brain wo con Stat 07/30/20 20:26 CT head/brain wo con Stat 07/31/20 00:00 MR brain wo con Routine 07/31/20 18:03 MR cervical spine wo/w con Routine 07/31/20 19:30 CT head/brain wo con Routine Hospital Course (1) Acute right-sided weakness: Patient is 45-year-old female with a past medical history of SLE, hypertension, migraines presented to the ED with right-sided weakness and exp ressive aphasia. S/p TPA on 07/30. CT head/CTA was negative on admission. CT angiogram was not concerning. MRI was obtained which was negative for any acute findings. Appreciate neurology input and recommendation. Transthoracic echo: No significant valvular pathology, no evidence of ASD, LV is normal in size, EF is 60 to 65%, RV systolic function is normal, left and right atria are normal Permissive hypertension with a systolic blood pressure goal of 1 40-1 80. Continue the aspirin/Plavix. Aspirin and Plavix for 21 days and then aspirin alone Hemoglobin A1c-5.5 Lipid panel : Triglyceride 157, cholesterol 222, LDL 148 ,VLDL 31 and HDL 43 Work with PT/OT and speech therapy.-PT recommended she will require 24-hour care even if she goes home (2) Expressive aphasia: No significant clear but he still has minimal difficulties in finding words (3) Lupus (systemic lupus erythematosus): No acute flareup of SLE We will continue Plaquenil (4) Hypertension: Controlled now (5) History of migraine: denies any significant history of migraines DVT prophylaxis SCDs, status post TPA CODE STATUS Full Total Time Total Time Spent Total Time Spent (In Minutes): 35 minutes Total Time Includes: Examination of the Patient, Discharge Planning, Medication Reconciliation and Communication With Other Providers Discharge Plan Discharge Items Patient Disposition: Home - Home Health Services Reason For Visit: CVA Discharge Diagnosis: Right-sided weakness, presumed complex migraine: Cannot rule out small vessel stroke, SLE, hypertension Condition on Discharge: Good Activity: As commented below Activity Comment: Continue PT/OT as an outpatient Non-emergency contact: Primary Care Provider Call non-emergency contact if: you have any medication questions and your symptoms worsen Follow-up/Referrals: Elizabeth Floyd MD [Primary Care Provider] - (Your doctor's office will call with an appointment within 7 days) Diet: Heart Healthy Diet Texture: Easy to Chew Addtl Attending Provider Instructions: Please take extreme precaution to avoid fall Continue with outpatient PT and OT as recommended Omeprazole has been discontinued and Protonix given to avoid interaction with Plavix [facility] [address] neurology will call for a repeat MRI in 2 weeks an appointment within 4 to 6 weeks Pending Studies at Discharge: Yes Studies:: Coagulation studies Stand-Alone Forms: Medications to Prevent Stroke, BAC ON TRAC, Smoking Cessation Medications and DC Order Prescriptions: New atorvastatin 20 mg Tablet 20 mg PO QAM 30 Days Qty: 30 RF: 0 clopidogrel 75 mg Tablet 75 mg PO QAM 18 Days Qty: 18 RF: 0 aspirin 81 mg Tablet,Delayed Release (Dr/Ec) 81 mg PO QAM 30 Days Qty: 30 RF: 0 pantoprazole [Protonix] 40 mg tablet,delayed release (DR/EC) 40 mg PO DAILY Qty: 30 RF: 0 Continued cyclobenzaprine 10 mg Tablet 10 mg PO Q8H PRN (Reason: Muscle Spasm) RF: 0 Benlysta 200 mg/mL Auto-Injector 200 mg SUBCUT WK RF: 0 metoprolol succinate 100 mg Tablet Extended Release 24 Hr 100 mg PO QAM RF: 0 hydrochlorothiazide 25 mg Tablet 12.5 mg PO QAM RF: 0 hydroxychloroquine 200 mg tablet 400 mg PO QAM RF: 0 cholecalciferol (vitamin D3) [Vitamin D3] 2,000 unit Capsule 4,000 units PO QAM RF: 0 coQ10 (ubiquinol) 200 mg Capsule 200 mg PO QAM RF: 0 biotin 5 mg Tablet 5 mg PO DAILY RF: 0 Cbd 1,600 mg sublingual UD PRN (Reason: Anxiety) RF: 0 Discontinued omeprazole 40 mg Capsule,Delayed Release(Dr/Ec) 40 mg PO DAILY RF: 0 Discharge Orders: Discharge Order (Routine); Ordered 08/01/20 Ordered By: Kiera Mccoy Admission Data Admit Date/Time: 07/30/20 22:18 Attending Provider: Kiera Mccoy Admit Provider: Angel Calvo Primary Care Provider: Elizabeth Floyd Other Providers: [facility],Home Healthcare ; Angel Calvo ; Richard Munoz ; Elisabeth Greene ; Houston Neff ; Elisabeth Almanzar ; Yovani Cavazos ; Mykel Lam Other Interventions: Discharge Summary Assessment (RN) Last Done: 08/01/20 16:30
[2020-08-04 07:16] LABS: Anti Cardiolipin Ab IgG <14 GPL; Anti Cardiolipin Ab IgM <12 MPL; PTT LA Screen 38 sec (<=40)
[2020-08-05 07:27] LABS: B2 Glycoprotein IgG <9 SGU (<=20); B2 Glycoprotein IgM <9 SMU (<=20); Protein S Functional(Activity) 124 % (60-140)
--- NOTE | 2020-08-07 10:23 | Coding Query ---
CODING QUERY To promote full compliance with coding requirements relating to patient care, provider participation is requested in all cases of spool maker uncertainty. Please assist us with the question(s) below: Coding Question(s): Multiple times the documentation indicated that the patient developed a headache after TPA administration. In your clinical opinion was the headache caused by the TPA, progression of complex migraine diagnosed later in the visit, or something else? Physician's Response(s): ( ) Headache due to TPA administration ( ) Headache as progression of complex migraine symptoms ( ) Headache due to something else, please specify ( + ) Unable to determine Thank you Nely Haji Principal Diagnosis: "that condition established after study, to be chiefly responsible for occasioning the admission of the patient to the hospital for care." Co-Existing Principal Diagnosis: "when two or more diagnoses equally meet the criteria for principal diagnosis as determined by the circumstances of admission, diagnostic work up, and/or therapy provided, and the Alphabetic Index, Tabular List, or another coding guideline does not provide sequencing direction, any one of the diagnoses may be sequenced first." "When the physician has documented what appears to be a current diagnosis in the body of the record, but has not included the diagnosis in the final diagnostic statement, the physician should be asked whether the diagnosis should be added." (Source Coding [facility] 2 QTR90. p3-4) [facility]OCK[facility]
== END 2020-08-01 16:56 | disposition home health service (06) | DRG 62 ==
LOC: ED 18:05 → SUATTDRO 22:18 → 1E 22:18 → 2N 07-31 21:32

== ENCOUNTER 2021-06-12 12:36 | Observation (INO) ==
--- NOTE | 2021-06-12 13:18 | Emergency Department Note ---
Impression & Plan Facial droop, Numbness and tingling of right arm, Lupus (systemic lupus erythematosus) ED Provider Note Provider: Jose Leon MD DATE OF SERVICE: 06/12/2021 CHIEF COMPLAINT: HISTORY OF PRESENT ILLNESS: Patient is a 46-year-old female history of lupus and prior stroke presenting here today reporting onset 2 days ago of tingling and numbness on the right side. Seen here last evening and was recommended for admission for further neurological work-up but she refused and went home. Neurologist today at [facility] and was referred back here today. She reports that she has had worsening of her a facial droop and right arm tingling overnight. Patient states that she really noticed the facial to this morning. Discussed with her neurologist at [facility] who was angry at her and told her to come back to the hospital. Bit of a frontal headache that developed overnight as well. States her right arm feels just a little bit weak as well. No falls reported. Patient does report that at times the vision in her right eye seems a bit blurry. REVIEW OF SYSTEMS: A total of 10 review of systems was obtained and negative except as stated above in the HPI. PAST MEDICAL HISTORY: As noted above MEDICATIONS: Reviewed home medications includes aspirin SOCIAL HISTORY: non-smoker PHYSICAL EXAM: GENERAL: alert and oriented in no acute distress on stretcher Head: normocephalic and atraumatic EYES: No injection, discharge or icterus. PERRL NECK: Trachea midline. Supple. ENT: Mucous membranes pink and moist. LUNGS: Airway patent. No retractions. Breath sounds clear with good air entry bilaterally. HEART: Regular rate and rhythm. No chest wall tenderness ABDOMEN: Soft and non-tender, without guarding or rebound. SKIN: Acyanotic, warm, dry, without rashes EXTREMITIES: Without swelling, tenderness or deformity NEUROLOGICAL: No aphasia. Some right facial droop without slurred speech. Some subjectively decreased sensation in the right arm. No change in sensation in the legs. 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 EK bpm sinus bradycardia. No PVC or PAC. No acute ST segment elevation or depression with a QTC of 439. V6 artifact noted. CONTINUOUS CARDIAC MONITORING: was ordered and showed a heart rate of 50s to 70sbpm in normal sinus rhythm to sinus bradycardia Patient's laboratory studies and imaging reviewed. Differential includes Infection, dehydration, metabolic abnormality, hy po/hyperglycemia, electrolyte disturbance, anemia, hypoxia, cardiac sources, intracerebral event, toxicologic, neurologic, as well as other pathologies. IMPRESSION/MEDICAL DECISION MAKING: Patient with some right-sided numbness and right facial issues since Thursday left against recommendations last night. Came back today recommendation of her outpatient neurologist. Has been on aspirin. Some worsening neuro symptoms overnight in the right face. Patient with little bit of a headache. No light sensitivity or nausea. Later given little to Reglan for some headache. Blood work here without significant abnormality. Negative COVID last night. History of prior TPA usage outside the window now based on time of symptoms. CT of the head without acute bleed today. CT angiograms obtained last night without significant vascular abnormality noted. Do not feel need to repeat today. Could possibly represent complex migraine but does have significant history per her report. With worsening neurological symptoms will admit for further neurological evaluation with likely need for MRI for further differentiation. DIAGNOSIS: Right facial droop, right numbness and weakness DISPOSITION: Hospitalist will evaluate Patient was agreeable with this plan. Past Med/Surg History Medical History Degenerative disc disease lumbar, thoracic GERD (gastroesophageal reflux disease) Hiatal hernia History of migraine Hx of malignant carcinoid tumor s/p appendectomy Hypertension Lupus (systemic lupus erythematosus) dx'd 08/2018, follows with [facility] – [place] rheumatology Obesity Received intravenous tissue plasminogen activator (tPA) in emergency department Stomach ulcer hx Surgical History Fusion of spine 2004 History of section History of colonoscopy History of esophagogastroduodenoscopy (EGD) Hx laparoscopic cholecystectomy (06/27/19) Laparoscopic cholecystectomy with lysis of adhesions. Dr. 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 Beliefs That Will Affect Care: None Current Living Situation: Spouse and Family Current Living Situation Comment: lives in two story home with Feels Safe at Home: Yes Assistive Devices: Walker Allergies Allergies Allergy/AdvReac Type Severity Reaction Status Date / Time hydrocodone Allergy Intermediate Confusion Verified 06/11/21 20:18 [From Lorcet (hydrocodone)] nitrofurantoin Allergy Intermediate Chest Pain Verified 06/11/21 20:18 [From Macrobid] tramadol Allergy Mild Itchiness Verified 06/11/21 20:18 Cephalosporins Allergy Unknown Unknown Verified 06/11/21 20:18 Sulfa (Sulfonamide Allergy Unknown Unknown Verified 06/11/21 20:18 Antibiotics) azathioprine [From Imuran] AdvReac Intermediate Liver Unverified 06/12/21 14:28 Failure Home Meds Home Medications Medication Instructions Recorded Confirmed coQ10 (ubiquinol) 200 mg capsule 200 mg PO [facility] 08/27/18 06/12/21 hydroxychloroquine 200 mg tablet 400 mg PO QA 08/27/18 06/12/21 cyclobenzaprine 10 mg tablet 10 mg PO Q8H PRN 03/09/20 06/12/21 biotin 5 mg tablet 5 mg PO DAILY 07/09/20 06/12/21 atorvastatin 20 mg tablet 20 mg PO DAILY 02/27/21 06/12/21 folic acid 1 mg tablet 2 mg PO DAILY 02/27/21 06/12/21 metformin 500 mg tablet 500 mg PO HS 02/27/21 06/12/21 pantoprazole 40 mg tablet,delayed 40 mg PO HS 02/27/21 06/12/21 release (Protonix) arginine oxoglurate 350 mg 500 mg PO DAILY 06/11/21 06/12/21 tablet,extended release (L-Arginine (alpha-ketoglutarate)) aspirin 81 mg tablet,delayed 81 mg PO DAILY 06/11/21 06/12/21 release metoprolol succinate 25 mg 25 mg PO HS 06/11/21 06/12/21 tablet,extended release 24 hr nutritional supplement-fiber oral 1 ea PO QAM 06/11/21 06/12/21 liquid cholecalciferol (vitamin D3) 125 125 mcg PO DAILY 06/12/21 06/12/21 mcg (5,000 unit) tablet (Vitamin D3) Results & Data (ED) Vital Signs Vital Signs - 24 hr 06/12/21 12:38 06/12/21 15:00 06/12/21 16:00 Temperature 36.8 C Temperature Source Temporal Artery Scan Pulse Rate 74 Pulse Rate [Right Finger] 66 87 Pulse Rhythm [Right Finger] Regular Regular Pulse Strength [Right Finger] Normal Normal Respiratory Rate 18 23 20 Respiratory Effort / Characteristics Non-Labored Non-Labored Non-Labored Respiratory Depth Normal Normal Normal Respiratory Pattern Regular Regular Blood Pressure 160/94 H Blood Pressure [Right Arm] 116/74 Blood Pressure Mean 116 Blood Pressure Mean [Right Arm] 88 Blood Pressure Position [Right Arm] Sitting Sitting Pulse Oximetry 99 98 99 Oxygen Delivery Method Room Air Room Air Room Air Sepsis Recent Fever Within 48 Hours No Sepsis New/Unexplained Change in Mental Status No Sepsis Action Taken by Nursing No Action Required Laboratory Data Result diagrams: 06/12/21 13:55 06/12/21 13:55 Lab Results 06/12/21 06/12/21 06/12/21 Range/Units 13:55 13:55 13:55 WBC 6.70 (4.8-10.8) K/uL RBC 4.73 (4.2-5.4) M/uL Hgb 13.1 (12.0-16.0) g/dL Hct 40.0 (37-47) % MCV 84.6 (80-100) fL MCH 27.7 (25-34) pg MCHC 32.8 (32-36) g/dL RDW Std Deviation 39.3 (36.4-46.3) fL RDW Coeff of Jose 12.7 (11.5-14.5) % Plt Count 243 (130-400) K/uL MPV 11.3 H (7.4-10.4) fL Immature Gran % (Auto) 0.3 % Neut % (Auto) 59.6 % Lymph % (Auto) 30.4 % Williamson % (Auto) 8.4 % Eos % (Auto) 1.0 % Baso % (Auto) 0.3 % Neut # (Auto) 3.99 (1.4-6.5) K/uL Lymph # (Auto) 2.04 (1.2-3.4) K/uL Williamson # (Auto) 0.56 (0.11-0.59) K/uL Eos # (Auto) 0.07 (0-0.5) K/uL Baso # (Auto) 0.02 (0-0.2) K/uL Immature Gran # (Auto) 0.02 (0.00-0.02) K/uL Sodium 140 (136-145) mmol/L Potassium 3.7 (3.5-5.1) mmol/L Chloride 106 (98-107) mmol/L Carbon Dioxide 30 (21-32) mmol/L Anion Gap 4 (3-11) BUN 14 (6-23) mg/dl Creatinine 0.65 (0.6-1.2) mg/dl Est Cr Clr Drug Dosing 100.0 ml/min Est GFR ( Amer) 122.5 ml/min Est GFR (Non-Af Amer) 105.7 ml/min BUN/Creatinine Ratio 21.5 H (10-20) Glucose 117 H (70-99(Fasting)) mg/dl Calcium 9.1 (8.5-10.1) mg/dl Total Bilirubin 0.4 (0.2-1.0) mg/dl AST 20 (13-39) U/L ALT 24 (7-52) U/L Alkaline Phosphatase 59 (34-104) U/L Total Protein 6.7 (6.0-8.3) gm/dl Albumin 4.2 (3.4-5.0) gm/dl Globulin 2.5 (2.5-4.0) gm/dl Albumin/Globulin Ratio 1.7 (0.9-2) TSH (0.300-4.500) uIu/ml Lyme Disease IgG Ab Negative (Negative) Lyme Disease IgM Ab Negative (Negative) 06/12/21 Range/Units 13:55 WBC (4.8-10.8) K/uL RBC (4.2-5.4) M/uL Hgb (12.0-16.0) g/dL Hct (37-47) % MCV (80-100) fL MCH (25-34) pg MCHC (32-36) g/dL RDW Std Deviation (36.4-46.3) fL RDW Coeff of Jose (11.5-14.5) % Plt Count (130-400) K/uL MPV (7.4-10.4) fL Immature Gran % (Auto) % Neut % (Auto) % Lymph % (Auto) % Williamson % (Auto) % Eos % (Auto) % Baso % (Auto) % Neut # (Auto) (1.4-6.5) K/uL Lymph # (Auto) (1.2-3.4) K/uL Williamson # (Auto) (0.11-0.59) K/uL Eos # (Auto) (0-0.5) K/uL Baso # (Auto) (0-0.2) K/uL Immature Gran # (Auto) (0.00-0.02) K/uL Sodium (136-145) mmol/L Potassium (3.5-5.1) mmol/L Chloride (98-107) mmol/L Carbon Dioxide (21-32) mmol/L Anion Gap (3-11) BUN (6-23) mg/dl Creatinine (0.6-1.2) mg/dl Est Cr Clr Drug Dosing ml/min Est GFR ( Amer) ml/min Est GFR (Non-Af Amer) ml/min BUN/Creatinine Ratio (10-20) Glucose (70-99(Fasting)) mg/dl Calcium (8.5-10.1) mg/dl Total Bilirubin (0.2-1.0) mg/dl AST (13-39) U/L ALT (7-52) U/L Alkaline Phosphatase (34-104) U/L Total Protein (6.0-8.3) gm/dl Albumin (3.4-5.0) gm/dl Globulin (2.5-4.0) gm/dl Albumin/Globulin Ratio (0.9-2) TSH 1.452 (0.300-4.500) uIu/ml Lyme Disease IgG Ab (Negative) Lyme Disease IgM Ab (Negative) Administered Medications Discontinued Medications Metoclopramide HCl (Metoclopramide Hcl Inj 5 Mg/Ml 2 Ml Vial) 5 mg IV ONE ONE Stop: 06/12/21 14:39 Last Admin: 06/12/21 15:32 Dose: 5 mg Documented by: [id number] Imaging Data Radiologist's Impression: Head CT 06/12/21 13:34 CT OF THE HEAD WITHOUT CONTRAST CLINICAL HISTORY: headache, R facial/arm numbness COMPARISON STUDY: MRI of the brain July 31, 2020. Head CT and CTA of the head June 11, 2021. CT DOSE: 537.48 mGy.cm TECHNIQUE: Helical axial images of the head were obtained without IV contrast. Automated exposure control was utilized for the study. A dose lowering technique was utilized adhering to the principles of ALARA. FINDINGS: No acute intracranial hemorrhage, midline shift or mass effect is present. The ventricular system is unremarkable. The basal cisterns are patent. No extra-axial collections are present. There are no findings to suggest acute dural sinus thrombosis or acute territorial infarct. No significant calvarial abnormalities are present. Visualized portions of the sinuses and mastoid air cells are clear. IMPRESSION: No acute intracranial findings. ACT 112: Negative or not required by law. Electronically signed by: Keaton Wells M.D. 06/12/2021 2:26 PM Discharge Plan Visit Data Chief Complaint: Stroke/CVA Symptoms Stated Complaint: POSS STROKE, HERE LAST NIGHT ED Provider: Jose Leon Discharge Problem: Facial droop, Numbness and tingling of right arm, Lupus (systemic lupus erythematosus) Patient Disposition: Being Evaluated by Hospitalist Forms Stand Alone Forms: My [facility] Prescriptions Prescriptions: No Action cyclobenzaprine 10 mg Tablet 10 mg PO Q8H PRN (Reason: Muscle Spasm) RF: 0 hydroxychloroquine 200 mg tablet 400 mg PO QAM RF: 0 coQ10 (ubiquinol) 200 mg Capsule 200 mg PO QAM RF: 0 biotin 5 mg Tablet 5 mg PO DAILY RF: 0 metformin 500 mg Tablet 500 mg PO HS RF: 0 atorvastatin 20 mg Tablet 20 mg PO DAILY RF: 0 folic acid 1 mg tablet 2 mg PO DAILY RF: 0 pantoprazole [Protonix] 40 mg tablet,delayed release (DR/EC) 40 mg PO HS RF: 0 aspirin 81 mg Tablet,Delayed Release (Dr/Ec) 81 mg PO DAILY RF: 0 metoprolol succinate 25 mg tablet extended release 24 hr 25 mg PO HS RF: 0 Juice Plus Liquid 1 ea PO QAM RF: 0 L-Arginine(alpha-ketoglutarat) 350 mg Tablet Extended Release 500 mg PO DAILY RF: 0 cholecalciferol (vitamin D3) [Vitamin D3] 125 mcg (5,000 unit) Tablet 125 mcg PO DAILY RF: 0 Referrals Referrals: Marcy Matthews CRNP [Primary Care Provider] -
[2021-06-12 14:04] LABS: Basophils # (auto) 0.02 K/uL (0-0.2); Basophils % (auto) 0.3 %; Eosinophils # (auto) 0.07 K/uL (0-0.5); Hemoglobin 13.1 g/dL (12.0-16.0); Immature Granulocytes # (auto) 0.02 K/uL (0.00-0.02); Immature Granulocytes % (auto) 0.3 %; Lymphocytes # (auto) 2.04 K/uL (1.2-3.4); Lymphocytes % (auto) 30.4 %; Mean Corpuscular Hemoglobin 27.7 pg (25-34); Mean Corpuscular Hgb Conc 32.8 g/dL (32-36); Mean Corpuscular Volume 84.6 fL (80-100); Mean Platelet Volume 11.3 fL (7.4-10.4); Monocytes # (auto) 0.56 K/uL (0.11-0.59); Monocytes % (auto) 8.4 %; Neutrophils # (auto) 3.99 K/uL (1.4-6.5); Neutrophils % (auto) 59.6 %; Platelet Count 243 K/uL (130-400); RDW Coefficient of Variation 12.7 % (11.5-14.5); RDW Standard Deviation 39.3 fL (36.4-46.3); Red Blood Count 4.73 M/uL (4.2-5.4)
[2021-06-12 14:24] LABS: Albumin Globulin Ratio 1.7 (0.9-2); Albumin Level 4.2 gm/dl (3.4-5.0); BUN Creatinine Ratio 21.5 (10-20); Bilirubin,Total 0.4 mg/dl (0.2-1.0); Calcium 9.1 mg/dl (8.5-10.1); Est GFR (African American) 122.5 ml/min; Est GFR (Non-African American) 105.7 ml/min; Globulin 2.5 gm/dl (2.5-4.0); Potassium 3.7 mmol/L (3.5-5.1); Total Protein 6.7 gm/dl (6.0-8.3)
--- NOTE | 2021-06-12 14:27 | CT Scan Report ---
CT OF THE HEAD WITHOUT CONTRAST CLINICAL HISTORY: headache, R facial/arm numbness COMPARISON STUDY: MRI of the brain July 31, 2020. Head CT and CTA of the head June 11, 2021. CT DOSE: 537.48 mGy.cm TECHNIQUE: Helical axial images of the head were obtained without IV contrast. Automated exposure con trol was utilized for the study. A dose lowering technique was utilized adhering to the principles o f ALARA. FINDINGS: No acute intracranial hemorrhage, midline shift or mass effect is present. The ventricular system is unremarkable. The basal cisterns are patent. No extra-axial collections are present. There are no findings to suggest acute dural sinus thrombosis or acute territorial infarct. No significant calvarial abnormalities are present. Visualized portions of the sinuses and mastoid air cells are odin ar. IMPRESSION: No acute intracranial findings. ACT 112: Negative or not required by law. Electronically signed by: Keaton Wells M.D. 06/12/2021 2:26 PM
[2021-06-12] MEDS ORDERED: METOCLOPRAMIDE HCL INJ 5 MG/ML 2 ML VIAL IV ONE (14:38)
[2021-06-12 14:58] LABS: Lyme Ab IgG w/WB Rflx Negative (Negative); Lyme Ab IgM w/WB Rflx Negative (Negative)
--- NOTE | 2021-06-12 15:56 | History & Physical Report ---
Date of Service June 12, 2021 Assessment & Plan (1) Acute right-sided weakness: Plan: Right sided weakness, paraesthesia, facial droop, overshoot with finger to nose- improved by afternoon - MRI- No mass, hematoma, midline shift or evidence of acute infarction- T2 hyperintensity within the white matter - DDX: complex migraine/metabolic vs. endocrine vs. other - T2 hyperintensity within the white matter suggestive of complex migraine- as well as resolution of symptoms - Remains with right sided weakness that has not resolved at this time; and unsure if this is chronic/residual - Lyme IgG/IgM negative - B12 folate for am - TSH normal Follow constellation of symptoms and presentation through out PM as well as follow for resolution of symptoms. As above strongly suggestive of complex migraine. - neurological exams q4 - IVF overnight- antiemetics if needed - BP well controlled - avoid triptan for now (2) History of CVA (cerebrovascular accident): Plan: Patient with history of CVA vs. migraine in spring where she received tPA - She was also started on BP control with metoprolol, Plavix and asa- which has been down to asa, and statin - Follows with [place] neurology (3) GERD (gastroesophageal reflux disease): Plan: Continue Protonix 40mg daily (4) Lupus (systemic lupus erythematosus): Plan: Diagnosed in [facility] [place] ~5 years ago. - Patient is on hydrochloroquine - MADHU screen 2018 - previous hypercoag workup normal (5) Hyperlipidemia: Plan: Continue statin goal LDL <70 (6) History of migraine: Plan: As with her last CVA/episode of right sided weakness- She was following with neurology with delay headache and hemiparesthesia/hemiparesis that was suggestive of migraine- she was referred to headache specialist (7) DM II (diabetes mellitus, type II), controlled: Plan: Hold Metformin - transition to aspart sliding scale if BG >180 on 2 continuous checks (8) DJD (degenerative joint disease): Plan: MRI spine 07/22- performed for right sided weakness History of Present Illness Chief Complaint: right-sided facial droop, headache, weakness right arm/leg Primary Care Provider: Marcy Matthews 46 YOF with past medical history of: CVA- with tPA 07/22, migraines, Lupus, HTN, HLD, syncope, TVH (ovaries still in place), carcanoid tumor of appendix. Patient comes to the emergency room today following discussion with her neurologist in [place] this morning after she was seen in the EMD on for right sided weakness, numbness, and worsening of right sided facial droop. Initially the patient's symptoms started on Thursday in the evening before bed. This was right sided numbness and weakness, when she awoke on Thursday, she noted progression of the weakness and start of right sided facial droop. This was associated with a headache above her right eye yesterday. She had head CT, CTA of the head and neck performed- which were negative for large ischemia/dissection/or hemorrhage. There was telestroke evaluation done on with no changes to therapy. The patient requested to go home at that time as she had follow up appointment with her [facility] [place] neurologist on . Today patient has right sided facial droop, right arm and right leg weakness, numbness on the right side. She had a repeat head CT scan performed in the EMD and hospitalist was consulted for admission. Stat MRI of the brain ordered to evaluate for CVA. She has right facial droop with loss of right sided nasal l abial fold,decreased sensation on the right side through all dermatomes up to shoulder level. Strength 4/5 on the right side, mild dysarthria, overshoot and slowness with finger to nose, and discoordinated with right side. She does not endorse any headaches or vision changes- she has chronic blurry vision- but no change. Following MRI movement in her right arm improved, as well as decrease in her facial asymmetry. Her Glucose is normal, and no other signs of chemical/narcotic involvement, electrolytes are normal, LFT normal. UA is pending; lyme negative, TSH normal. COVID test is pending- Negative Allergies Allergy/AdvReac Type Severity Reaction Status Date / Time hydrocodone Allergy Intermediate Confusion Verified 06/11/21 20:18 [From Lorcet (hydrocodone)] nitrofurantoin Allergy Intermediate Chest Pain Verified 06/11/21 20:18 [From Macrobid] tramadol Allergy Mild Itchiness Verified 06/11/21 20:18 Cephalosporins Allergy Unknown Unknown Verified 06/11/21 20:18 Sulfa (Sulfonamide Allergy Unknown Unknown Verified 06/11/21 20:18 Antibiotics) azathioprine [From Imuran] AdvReac Intermediate Liver Unverified 06/12/21 14:28 Failure Home Medications Medication Instructions Recorded Confirmed Type coQ10 (ubiquinol) 200 mg capsule 200 mg PO QAM 08/27/18 06/12/21 History hydroxychloroquine 200 mg tablet 400 mg PO QAM 08/27/18 06/12/21 History cyclobenzaprine 10 mg tablet 10 mg PO Q8H PRN 03/09/20 06/12/21 History biotin 5 mg tablet 5 mg PO DAILY 07/09/20 06/12/21 History atorvastatin 20 mg tablet 20 mg PO DAILY 02/27/21 06/12/21 History folic acid 1 mg tablet 2 mg PO DAILY 02/27/21 06/12/21 History metformin 500 mg tablet 500 mg PO HS 02/27/21 06/12/21 History pantoprazole 40 mg tablet,delayed 40 mg PO HS 02/27/21 06/12/21 History release (Protonix) arginine oxoglurate 350 mg 500 mg PO DAILY 06/11/21 06/12/21 History tablet,extended release (L-Arginine (alpha-ketoglutarate)) aspirin 81 mg tablet,delayed 81 mg PO DAILY 06/11/21 06/12/21 History release metoprolol succinate 25 mg 25 mg PO HS 06/11/21 06/12/21 History tablet,extended release 24 hr nutritional supplement-fiber oral 1 ea PO QAM 06/11/21 06/12/21 History liquid cholecalciferol (vitamin D3) 125 125 mcg PO DAILY 06/12/21 06/12/21 History mcg (5,000 unit) tablet (Vitamin D3) Past Med/Surg History Medical History Degenerative disc disease lumbar, thoracic GERD (gastroesophageal reflux disease) Hiatal hernia History of migraine Hx of malignant carcinoid tumor s/p appendectomy Hypertension Lupus (systemic lupus erythematosus) dx'd 08/2018, follows with [facility] [place] rheumatology Obesity Received intravenous tissue plasminogen activator (tPA) in emergency department Stomach ulcer hx Surgical History Fusion of spine 2004 History of section History of colonoscopy History of esophagogastroduodenoscopy (EGD) Hx laparoscopic cholecystectomy (06/27/19) Laparoscopic cholecystectomy with lysis of adhesions. Dr. 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: No Beliefs That Will Affect Care: None Current Living Situation: Spouse and Family Current Living Situation Comment: lives in two story home with Feels Safe at Home: Yes Assistive Devices: Walker Review of Systems Review of Systems: REVIEW OF SYSTEMS: Constitutional: No fever, sweats or chills Eyes: (+) blurred vision, wears glasses, No diplopia, no worsening or ENT: (+) facial droop, normal hearing, no trouble swallowing Respiratory: No cough, sputum, dyspnea at rest or on exertion Cardiovascular: No chest pain, tightness or palpitations Abdomen: No pain, nausea, vomiting, diarrhea or constipation Musculoskeletal: (+) chronic joint/back pain, joint pain, NO calf pain, swelling Neurologic: (+) weakness, numbness/tingling, balance problems, tripping with right leg Psychiatric: No anxiety or depression Skin: No rash or itch Physical Exam Physical Exam: PHYSICAL EXAM: General: awake, alert, no apparent distress Head: Normocephalic, atraumatic ENT: no pharyngeal exudate, mucous membranes moist Neuro: AAO x 3, Speech clear, mild dysarthria, sensation decreased on the right side through all dermatomes in arms and legs up until shoulder level- sensation equal on the chest and abdomen bilaterally, strength 4/5 to right upper and right lower extremity, 5/5 LUE and LLE, right sided facial droop with loss of nasal-labial fold, tongue midline. peripheral vision intact, and no neglect, overshoot with finger to nose, no aphasia. - NIHSS 6 Chest: equal rise and fall of the chest, no accessory muscle use, no heaves or thrills, Clear to auscultation, on room air, Cardiac: Regular rate and rhythm, telemetry reviewed, skin warm dry, cap refill <3 seconds, peripheral pulses +2 no JVD, no murmur, , no edema GI: NABS x 4 quadrants, soft, nontender to palpation, no rebound, guarding or tenderness : Spontaneously voiding, no pain, no CVA tenderness, Extremities: Normal inspection, no peripheral edema or erythema, calfs nontender to palpation Psych: Normal mood and affect Skin: no rash or erythema Results & Data Results & Data ([facility]) Vital Signs (Past 12 Hours) Vital Signs Temp Pulse Pulse Resp BP BP Pulse Ox 06/12/21 15:00 66 23 116/74 98 06/12/21 12:38 36.8 C 74 18 160/94 H 99 Laboratory Results Abnormal lab results 06/12/21 06/12/21 Range/Units 13:55 13:55 MPV 11.3 H (7.4-10.4) fL BUN/Creatinine Ratio 21.5 H (10-20) Glucose 117 H (70-99(Fasting)) mg/dl Diagnostic Findings Head CT 06/12/21 13:34 CT OF THE HEAD WITHOUT CONTRAST CLINICAL HISTORY: headache, R facial/arm numbness COMPARISON STUDY: MRI of the brain July 31, 2020. Head CT and CTA of the head June 11, 2021. CT DOSE: 537.48 mGy.cm TECHNIQUE: Helical axial images of the head were obtained without IV contrast. Automated exposure control was utilized for the study. A dose lowering technique was utilized adhering to the principles of ALARA. FINDINGS: No acute intracranial hemorrhage, midline shift or mass effect is present. The ventricular system is unremarkable. The basal cisterns are patent. No extra-axial collections are present. There are no findings to suggest acute dural sinus thrombosis or acute territorial infarct. No significant calvarial abnormalities are present. Visualized portions of the sinuses and mastoid air cells are clear. IMPRESSION: No acute intracranial findings. ACT 112: Negative or not required by law. Electronically signed by: Keaton eWlls M.D. 06/12/2021 2:[address] angio neck with con, CT angio head w con- 06/11/21 CLINICAL HISTORY: r sided paraesthesia TECHNIQUE: CT angiography of the head and neck was performed following intravenous administration of iodinated contrast. Coronal and sagittal MIPS were obtained from the axial data set and were submitted for review. Automated dose lowering techniques and/or adjustment according to patient size were utilized for this examination. All measurements were calculated based on NASCET criteria. Comparison: Comparison is made to CT head 06/11/2021 FINDINGS: Lungs and soft tissues are unremarkable. CTA Neck: A 3 vessel aortic arch is shown. There is no significant atherosclerotic plaque in the aortic arch or the origins of the innominate, left common carotid, and left subclavian arteries. The common carotid, external carotid, cervical segments of the internal carotid arteries, and the cervical segments of the vertebral arteries are patent without hemodynamically significant stenosis. The left vertebral artery is dominant. CTA Head: The anterior and posterior cerebral circulations are patent. No hemodynamically significant stenosis, aneurysm, dissection, or arteriovenous malformation is shown. Atherosclerotic disease is noted. IMPRESSION: 1. No occlusion, hemodynamically significant stenosis, aneurysm, dissection, or arteriovenous malformation in the major intracranial arteries. 2. No occlusion, hemodynamically significant stenosis, or dissection in the major cervical arteries. Assessment of stenosis of the internal carotid arteries is based on NASCET criteria. CT angio neck with con, CT angio head w con- 06/11/21 CLINICAL HISTORY: r sided paraesthesia TECHNIQUE: CT angiography of the head and neck was performed following intravenous administration of iodinated contrast. Coronal and sagittal MIPS were obtained from the axial data set and were submitted for review. Automated dose lowering techniques and/or adjustment according to patient size were utilized for this examination. All measurements were calculated based on NASCET criteria. Comparison: Comparison is made to CT head 06/11/2021 FINDINGS: Lungs and soft tissues are unremarkable. CTA Neck: A 3 vessel aortic arch is shown. There is no significant atherosclerotic plaque in the aortic arch or the origins of the innominate, left common carotid, and left subclavian arteries. The common carotid, external carotid, cervical segments of the internal carotid arteries, and the cervical segments of the vertebral arteries are patent without hemodynamically significant stenosis. The left vertebral artery is dominant. CTA Head: The anterior and posterior cerebral circulations are patent. No hemodynamically significant stenosis, aneurysm, dissection, or arteriovenous malformation is shown. Atherosclerotic disease is noted. IMPRESSION: 1. No occlusion, hemodynamically significant stenosis, aneurysm, dissection, or arteriovenous malformation in the major intracranial arteries. 2. No occlusion, hemodynamically significant stenosis, or dissection in the major cervical arteries. Assessment of stenosis of the internal carotid arteries is based on NASCET criteria. Medications Administered Home Medications coQ10 (ubiquinol) 200 mg capsule 200 mg PO QAM 08/27/18 [History Confirmed 06/12/21] hydroxychloroquine 200 mg tablet 400 mg PO QAM 08/27/18 [History Confirmed 06/12/21] cyclobenzaprine 10 mg tablet 10 mg PO Q8H PRN 03/09/20 [History Confirmed 06/12/21] biotin 5 mg tablet 5 mg PO DAILY 07/09/20 [History Confirmed 06/12/21] atorvastatin 20 mg tablet 20 mg PO DAILY 02/27/21 [History Confirmed 06/12/21] folic acid 1 mg tablet 2 mg PO DAILY 02/27/21 [History Confirmed 06/12/21] metformin 500 mg tablet 500 mg PO HS 02/27/21 [History Confirmed 06/12/21] pantoprazole 40 mg tablet,delayed release (Protonix) 40 mg PO HS 02/27/21 [History Confirmed 06/12/21] arginine oxoglurate 350 mg tablet,extended release (L-Arginine (alpha- ketoglutarate)) 500 mg PO DAILY 06/11/21 [History Confirmed 06/12/21] aspirin 81 mg tablet,delayed release 81 mg PO DAILY 06/11/21 [History Confirmed 06/12/21] metoprolol succinate 25 mg tablet,extended release 24 hr 25 mg PO HS 06/11/21 [History Confirmed 06/12/21] nutritional supplement-fiber oral liquid 1 ea PO QAM 06/11/21 [History Confirmed 06/12/21] cholecalciferol (vitamin D3) 125 mcg (5,000 unit) tablet (Vitamin D3) 125 mcg PO DAILY 06/12/21 [History Confirmed 06/12/21] Discontinued Medications Metoclopramide HCl (Metoclopramide Hcl Inj 5 Mg/Ml 2 Ml Vial) 5 mg IV ONE ONE Stop: 06/12/21 14:39 Last Admin: 06/12/21 15:32 Dose: 5 mg Documented by: [id number] ECG Additional Comments: Sinus bradycardia Otherwise normal ECG When compared with ECG of 11-JUN-2021 19:53, (unconfirmed) No significant change was found Code Status & VTE Plan Code Status CODE: FULL VTE: SCDS, chemoprophy- pending MRI Supervising Physician Co-Signing Physician Notes Attending Attestation and Admission Note - Pt seen/examined, chart reviewed, care plan d/w LAINE Persaud. I agree w/ the pro components of his admission documentation. 46yo female with SLE, ?acute CVA vs complex migraine 07/2020 s/p TPA, residual right-sided weakness from her 07/2020 episode, HTN - presents with nearly 2 days of right facial droop, right arm/leg weakness, and right-sided numbness. She also had dysarthric speech and frontal headache. Seen in ER on 06/11, had negative CTA head/neck and CT head, d/c to home with f/u with her neurologist at [facility] [place] on 06/13. Pt presented again today at the urging of her neurologist, John BAPTISTE, in [place]. She had called his office and he recommended she come back to our ER for repeat evaluation due to persistent symptoms. PMH/PSH/allergies/meds/sochx/famhx - reviewed vitals - BPs elevated; otherwise VSS, afebrile gen - NAD, pleasant face - right facial droop, lower 2/3 of face; symmetric wrinkling of forehead neck - no JVD mouth - MMM heart - RRR, s1 s2 lungs - CTA b/l abd - soft NT ND BS+ ext - no edema of ankles; pulses 2+ b/l neuro - no pronator drift; strength RUE/RLE 4/5 (or 4-5/5); LUE/LLE - 5/5 strength; sensation intact to light touch x 4 exts; did not test gait; speech fluent/clear labs reviewed MRI brain reviewed CTA head/neck reviewed old records reviewed especially from 2020 A/P: 1. right-sided weakness/numbness along with right facial droop with NEGATIVE MRI brain; improving symptoms/signs per patient and based on serial exams by multiple providers 2. ?complex migraine causing #1 3. h/o acute CVA vs complex migraine - 2020 - s/p TPA; pt reports residual right-sided symptoms from this event 4. SLE 5. HTN, T2DM (or Pre-DM -- last a1c <6%) Her clinical picture seems most c/w #2. I would have expected that if she had had an acute CVA her MRI brain would have detected such today as we are 36+ hours from the start of her symptoms. We do see occasional false negative MRIs of the brain, however - but this is seldom. Regardless her presenting symptoms are not resolved; she is not back to baseline. I recommended that she stay overnight for continued observation and serial exams. Will consult [facility] [place] Neurology in the am for their opinion. Follow BPs - may need titration of meds. Treat headache as needed. Georgi Simpson MD PG Care Time/CCT Total # of Minutes Spent Total Time Spent with Patient: Total time spent is greater than 50% in coordination of care (as documented) at patient's floor/unit and/or counseling patient: Coding Level of Care Code 34291 Initial Inpt Care Lvl 3 Diagnoses Acute right-sided weakness R53.1 GERD (gastroesophageal reflux disease) K21.9 Lupus (systemic lupus erythematosus) M32.9 Systemic lupus erythematosus organ involvement: unspecified Systemic lupus erythematosus type: unspecified Hyperlipidemia E78.5 History of migraine Z86.69 History of CVA (cerebrovascular accident) Z86.73 DM II (diabetes mellitus, type II), controlled E11.9 DJD (degenerative joint disease) M19.90 (1) Lupus (systemic lupus erythematosus) Systemic lupus erythematosus organ involvement: unspecified Systemic lupus erythematosus type: unspecified Qualified Code(s): M32.9 - Systemic lupus erythematosus, unspecified
--- NOTE | 2021-06-12 17:07 | Magnetic Resonance Report ---
Brain MRI WITHOUT CONTRAST HISTORY: Right arm numbness and weakness. Right-sided facial droop. Speech difficulties. r/o cva TECHNIQUE: Multiplanar multisequence MRI of the brain was performed without the use of contrast. COMPARISON STUDY: Head and neck CTA 06/12/2021. Brain MRI 07/31/2020. FINDINGS: There are no areas of restricted diffusion to suggest acute infarction. The midline structu res are intact. The paranasal sinuses are clear. The mastoid air cells are clear. The ventricles and sulci are within normal limits for age. There is no mass, hematoma, midline shift. The major vascular flow-voids at the skull base are well maintained. There again noted a few scattered punctate foci of T2 hyperintensity seen within the white matter of the supratentorial brain. These remain unchanged. IMPRESSION: No significant change compared to the prior study. No acute intracranial abnormality. ACT 112: Negative or not required by law. Electronically signed by: Cyrus Campos M.D. 06/12/2021 5:06 PM
[2021-06-12] MEDS ORDERED: ACETAMINOPHEN 325 MG TAB PO PRN (17:25)
[2021-06-12] MEDS ORDERED: CYCLOBENZAPRINE HCL 10 MG TAB PO PRN (17:25)
[2021-06-12] MEDS ORDERED: ONDANSETRON INJ 2 MG/ML 2 ML VIAL IV PRN (18:34)
[2021-06-12] MEDS: LACTATED RINGER'S 1,000 ML IV SCH (18:41)
[2021-06-12 19:44] LABS: Appearance Urine Clear (Clear); Bacteria Urine Automated Negative (Negative); Bilirubin Urine Negative (Negative); Blood Urine Negative (Negative); Color Urine Yellow; Epithelial Cell Urine Auto >30 /lpf (0-5); Glucose Urine UA Negative (Negative); Ketones Urine Trace (Negative); Leukocyte Esterase Urine 1+ (Negative); Nitrite Urine Negative (Negative); Protein Urine Trace (Negative); Urobilinogen Urine Negative (Negative); WBC Urine Automated >30 /hpf (0-5); pH Urine 6.5 (4.5-7.5)
[2021-06-12] MEDS ORDERED: METOPROLOL SUCC 25MG EXT REL TAB PO SCH (21:00)
[2021-06-12] MEDS ORDERED: PANTOprazole 40 MG TAB PO SCH (21:00)
[2021-06-12] MEDS ORDERED: ENOXAPARIN INJ 40 MG/0.4 ML SYR SQ SCH (21:00)
[2021-06-13 05:34] LABS: Chol HDL Ratio 3.2 (0-5)
[2021-06-13 06:43] LABS: Folate (Folic Acid) > 22.30 ng/ml (>5.38)
[2021-06-13 06:44] LABS: Vitamin B12 267 pg/ml (211-911)
[2021-06-13] MEDS: LACTATED RINGER'S 1,000 ML IV SCH (08:33)
[2021-06-13] MEDS ORDERED: FOLIC ACID 1 MG TAB PO SCH (09:00)
[2021-06-13] MEDS ORDERED: ASPIRIN 81 MG ECTAB PO SCH (09:00)
[2021-06-13] MEDS ORDERED: ATORVASTATIN 20 MG TAB PO SCH (09:00)
[2021-06-13] MEDS ORDERED: CYANOCOBALAMIN 1000 MCG/ML VIAL IM SCH (09:00)
[2021-06-13] MEDS ORDERED: CHOLECALCIFEROL 5,000 UNITS 125 MCG TAB PO SCH (09:00)
[2021-06-13] MEDS ORDERED: NON-FORMULARY MEDICATION (Biotin 5 mg Tablet) PO SCH (09:00)
[2021-06-13] MEDS ORDERED: HYDROXYCHLOROQUINE SULFATE 200 MG TAB PO SCH (09:00)
--- NOTE | 2021-06-13 10:30 | Neurology Consultation ---
Date of Consultation June 13, 2021 Assessment & Plan (1) Stroke-like episode: Strokelike episode with recurrence of right-sided numbness and weakness, followed by low-grade frontal headache. Symptoms resolved. Had similar symptomatology last July for which patient received TPA. Patient's imaging including CT angiography of the head and neck, and brain MRI have been negative for acute, subacute, or chronic stroke. She may have complicated migraine. 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 Yet, she has not had DVT, pulmonary embolism, or other thromboembolic disease as far she knows. She has been taking daily low-dose aspirin and atorvastatin. Looks like previous hypercoagulable evaluation was unremarkable. Her clinical presentation is not suggestive of seizures. She does follow with a specialist at [facility] who according to the patient has expressed concern for possible stroke or TIA in the past. At this point, I would recommend adding Plavix to her medication regimen, Plavix 75 mg/day, in addition to aspirin 81 mg/day. After 3 weeks, however, patient should discontinue aspirin and continue with Plavix monotherapy for secondary stroke risk reduction. Would also complete an up-to-date lab evaluation for antiphospholipid antibody syndrome, MADHU panel, and inflammatory markers. Would consider obtaining 30-day mobile cardiac outpatient telemetry as well. I did discuss the possibility the patient's symptoms could in part be related to complicated migraine I discussed potential prophylactic medications in this context including a trial of verapamil or topiramate. Would hold off on starting this type of treatment at this point in time, however. History of Present Illness Reason for Consultation: complicated migraine vs TIA Requesting Physician: LAINE Soria Attending Physician: Elise Moya MD History of Present Illness The patient is a 46-year-old female with a history of strokelike episode occurring in July 2020, had presented to [facility] at that time for further assessment of right-sided weakness and word finding difficulty. She did have a telestroke consultation at that time with a specialist at [facility] and TPA was recommended. Imaging at that time including CT of the head, CT angiography of the head and neck, and brain MRI were negative for acute process or vascular lesion. The patient was seen by the [facility] neurology service at that time. She did develop a delayed headache after the episode and in light of her unremarkable imaging evaluation, the possibility of a complicated migraine was considered. She did have an MRI of the cervical spine completed at that time as well that was negative for any foci of demyelination or abnormality within the spinal cord. She does have a right lateral disc herniation at C6-7 resulting in severe right-sided neuroforaminal stenosis with impingement on the exiting C7 nerve root. The patient informed me that she was discharged to rehabilitation after this initial strokelike episode and it took several months for her to recover from lingering right-sided weakness and sensory dysfunction. She has been following with a stroke specialist at [facility]. Her history is notable for suspected lupus, follows with a construction project engineer at [facility] as well and is prescribed hydroxychloroquine. She does relate a history of 4 miscarriages, no history of DVT or pulmonary embolism. She has been taking daily low-dose aspirin and atorvastatin. The patient presented to the emergency department yesterday for further evaluation and management of right-sided numbness and tingling that began 2 days prior, she had actually presented to the ED on June 11, and again on June 12. She remarks that her right-sided symptoms began with numbness and tingling affecting the right hand and arm. There was an associated feeling of weakness as well affecting the face arm and leg. She had contacted her neurologist at [facility] who had recommended that she seek evaluation in the emergency department for her persistent symptomatology. She has undergone fairly extensive up-to-date neuroimaging including CT of the head, CT angiography of the head and neck, and brain MRI. These tests are unremarkable, no evidence of significant vascular lesion. No evidence of hemorrhage or acute process on either CT of the head or brain MRI. The brain MRI does reveal a few scattered punctate foci of T2 hyperintensity within the white matter of the supratentorial brain, unchanged compared with the previous MRI done in July 2020. I did review the images as well as the radiologist interpretation of these tests and agree. The patient does remark that her right-sided motor and sensory symptoms are nearly resolved this morning. She does admit that she had a low-grade headache associated with the symptoms as well, primarily above the right eye. I did inquire about her lupus diagnosis. She indicates that she has had some abnormalities on lab evaluation and follows with a construction project engineer at [facility] as well. She informs me that her initial symptoms were primarily an episode of vision loss affecting the right eye that persisted for a few days and resolved. She endorses some recurrence of vision difficulty with the right eye as well. She informs me that she has been evaluated at [place] and has had some difficulty with her visual field affecting the right eye. It is unclear, however, to what extent her vision symptom may be related to her diagnosis of lupus or not. She also informs me that other potential diagnoses have been considered including multiple sclerosis and myasthenia gravis. She has never had ptosis or diplopia. Her neuro imaging is not suggestive of multiple sclerosis. Allergies Allergy/AdvReac Type Severity Reaction Status Date / Time hydrocodone Allergy Intermediate Confusion Verified 06/11/21 20:18 [From Lorcet (hydrocodone)] nitrofurantoin Allergy Intermediate Chest Pain Verified 06/11/21 20:18 [From Macrobid] tramadol Allergy Mild Itchiness Verified 06/11/21 20:18 Cephalosporins Allergy Unknown Unknown Verified 06/11/21 20:18 Sulfa (Sulfonamide Allergy Unknown Unknown Verified 06/11/21 20:18 Antibiotics) azathioprine [From Imuran] AdvReac Intermediate Liver Unverified 06/12/21 14:28 Failure Home Medications Medication Instructions Recorded Confirmed Type coQ10 (ubiquinol) 200 mg capsule 200 mg PO QAM 08/27/18 06/12/21 History hydroxychloroquine 200 mg tablet 400 mg PO QAM 08/27/18 06/12/21 History cyclobenzaprine 10 mg tablet 10 mg PO Q8H PRN 03/09/20 06/12/21 History biotin 5 mg tablet 5 mg PO DAILY 07/09/20 06/12/21 History atorvastatin 20 mg tablet 20 mg PO DAILY 02/27/21 06/12/21 History folic acid 1 mg tablet 2 mg PO DAILY 02/27/21 06/12/21 History metformin 500 mg tablet 500 mg PO HS 02/27/21 06/12/21 History pantoprazole 40 mg tablet,delayed 40 mg PO HS 02/27/21 06/12/21 History release (Protonix) arginine oxoglurate 350 mg 500 mg PO DAILY 06/11/21 06/12/21 History tablet,extended release (L-Arginine (alpha-ketoglutarate)) aspirin 81 mg tablet,delayed 81 mg PO DAILY 06/11/21 06/12/21 History release metoprolol succinate 25 mg 25 mg PO HS 06/11/21 06/12/21 History tablet,extended release 24 hr nutritional supplement-fiber oral 1 ea PO QAM 06/11/21 06/12/21 History liquid cholecalciferol (vitamin D3) 125 125 mcg PO DAILY 06/12/21 06/12/21 History mcg (5,000 unit) tablet (Vitamin D3) Patient History Medical History Degenerative disc disease lumbar, thoracic GERD (gastroesophageal reflux disease) Hiatal hernia History of migraine Hx of malignant carcinoid tumor s/p appendectomy Hypertension Lupus (systemic lupus erythematosus) dx'd 08/2018, follows with [facility] rheumatology Obesity Received intravenous tissue plasminogen activator (tPA) in emergency department Stomach ulcer hx Surgical History Fusion of spine 2004 History of section History of colonoscopy History of esophagogastroduodenoscopy (EGD) Hx laparoscopic cholecystectomy (06/27/19) Laparoscopic cholecystectomy with lysis of adhesions. Dr. 06-27-19 Hx of appendectomy Hx of hysterectomy Family History Mother Family hx of colon cancer Son Heart disease s/p heart transplant age 25 Other Cancer Diabetes Hypertension Social History Smoking Status: Never smoker Second Hand Exposure: Yes (FATHER/SPOUSE SMOKED); Hx Alcohol Use: No Hx Substance Use: No Preferred Language: [place] Communication Ability: Effective Supervisor Communications And Signals Required: No Beliefs That Will Affect Care: None Current Living Situation: Spouse Current Living Situation Comment: lives in two story home with Feels Safe at Home: Yes Safety Concerns: Feels Safe At This Time Assistive Devices: Walker Review of Systems Constitutional: no fever and no chills Eyes: + blind spots; no diplopia and no eye pain Ear, Nose, Mouth, Throat: no ear pain and no hearing loss Respiratory: no cough and no dyspnea Cardiovascular: no chest pain and no palpitations Gastrointestinal: no constipation and no diarrhea/loose stools Genitourinary: no urinary urgency and no urinary incontinence Musculoskeletal: + back pain and + joint pain; no muscle weakness and no muscle atrophy Integumentary: no rash and no lesions Neurologic: as per Subjective / HPI Psychiatric: no behavioral changes, no depression, no abnormal sleep pattern and no anxiety Hematologic / Lymphatic: no easy bruising and no lymphadenopathy Exam (Neuro) Constitutional: well developed and well nourished; no acute distress Eyes: normal visual ramesh by confrontation, PERRL, normal accommodation and EOM intact bilaterally; no fundoscopic abnormality, no nystagmus and no papilledema Cardiovascular: Vessels: normal carotid upstroke; no carotid bruit Neurologic: Oriented to:: Person, Place and Time Memory: Short Term Intact and Remote Intact Attention: Span Intact and Concentration Intact Language: Naming Objects and Repeating Phrases Speech Fluency: negative Dysarthria Speech Aphasia: negative Aphasia Fund of Knowledge: Current Events, Past History and Vocabulary Cranial Nerves: Normal II (Visual ramesh full to confrontation, visual acuity normal), III, IV, (Pupils equal round reactive to light and accommodation, eye movements normal), V (Facial sensation intact), VII (There is no facial droop or weakness), VIII (Hearing intact), IX, X (Palate elevates to midline), XI (Shoulder shrug intact) and XII (Tongue p rotrudes to midline) Motor Strength: Normal Lower Extremities and Normal Upper Extremities; negative Pronator Drift Motor Tone: Normal Lower Extre mities and Normal Upper Extremities Muscle Bulk/Involuntary Movements: No Involuntary Movements; negative Muscle Atrophy Sensation: Light Touch Intact, Pain/Temperature Intact, Vibration Intact and Proprioception Intact Coordination: Normal; negative Limited Balance, Dysdiadochokinesia, Finger-Nose Abnormal or Heel-Martinez Abnormal Deep Tendon Reflexes: Rt Triceps: 2+, Lt Triceps: 2+, Rt Biceps: 2+, Lt Biceps: 2+, Rt Brachioradialis: 2+, Lt Brachioradialis: 2+, Rt Patellar: 2+, Lt Patellar: 2+, Rt Ankle: 2+ and Lt Ankle: 2+ Special Tests: negative Babinski Present Gait: Normal Station and Gait Details: All the patient's neurological examination is intact, she does exhibit some giveaway weakness affecting the right arm and leg, there are some inconsistencies, however. She exhibits reduced fine finger movements for the right hand but does not fix with arm roll. She does not have a pronator drift. She does not have a facial droop at this time. She does not have hyperreflexia or Babinski sign. She appears to have some difficulty with visual acuity for the right eye. There is no afferent pupillary defect. Results & Data ([facility]) Vital Signs (Past 12 Hours) Vital Signs Pulse Resp BP Pulse Ox 06/13/21 08:48 60 14 154/81 H 98 06/13/21 06:33 52 L 152/87 H 97 06/13/21 06:08 47 L 130/80 97 06/13/21 03:09 56 L 95 06/13/21 01:04 58 L 97 06/12/21 23:21 68 95 Laboratory Results WBC 6.70, hemoglobin 13.1, hematocrit 40.0, platelet count 243, sodium 140, potassium 3.7, BUN 14, creatinine 0.65, glucose 117, calcium 9.1, magnesium 2.1, AST 20, ALT 24, triglycerides 120, cholesterol 116, LDL 56, VLDL 24, HDL 36, vitamin B12 267, folate greater than 22.30, TSH 1.452. Previous hypercoagulable labs reviewed. Negative for factor II and factor V Leiden gene mutations. Anticardiolipin antibodies previously unremarkable. Diagnostic Findings Imaging including CT of the head, CT angiography of the head and neck, and brain MRI are as described in the history of present illness. I reviewed the images as well as the radiologist's interpretation of these tests. MRI of the cervical spine completed in July 2020 was also reviewed, results are as described in the history of present illness. Electrocardiogram reveals sinus bradycardia, 59 bpm. An echocardiogram completed in July 2020 revealed no significant valvular pathology, intact interatrial septum, no evidence for atrial septal defect. Normal left ventricular systolic function and size, ejection fraction 60 to 65%, normal atrial sizes. Coding Level of Care Code 31671 Initial In Care Lvl 3 Diagnoses Stroke-like episode R29.90
[2021-06-13] MEDS ORDERED: CLOPIDOGREL BISULFATE 75 MG TAB PO SCH (13:00)
[2021-06-13] MEDS ORDERED: STROKE PATIENT DISCHARGE PRN (13:34)
--- NOTE | 2021-06-13 13:41 | Discharge Summary ---
Date of Service June 13, 2021 Admission HPI Per Admitting Provider 46 YOF with past medical history of: CVA- with tPA 07/22, migraines, Lupus, HTN, HLD, syncope, TVH (ovaries still in place), carcanoid tumor of appendix. Patient comes to the emergency room today following discussion with her neurologist in [place] this morning after she was seen in the EMD on for right sided weakness, numbness, and worsening of right sided facial droop. Initially the patient's symptoms started on Thursday in the evening before bed. This was right sided numbness and weakness, when she awoke on Thursday, she noted progression of the weakness and start of right sided facial droop. This was associated with a headache above her right eye yesterday. She had head CT, CTA of the head and neck performed- which were negative for large ischemia/dissection/or hemorrhage. There was telestroke evaluation done on with no changes to therapy. The patient requested to go home at that time as she had follow up appointment with her [facility] neurologist on . Today patient has right sided facial droop, right arm and right leg weakness, numbness on the right side. She had a repeat head CT scan performed in the EMD and hospitalist was consulted for admission. Stat MRI of the brain ordered to evaluate for CVA. She has right facial droop with loss of right sided nasal labial fold,decreased sensation on the right side through all dermatomes up to shoulder level. Strength 4/5 on the right side, mild dysarthria, overshoot and slowness with finger to nose, and discoordinated with right side. She does not endorse any headaches or vision changes- she has chronic blurry vision- but no change. Following MRI movement in her right arm improved, as well as decrease in her facial asymmetry. Her Glucose is normal, and no other signs of chemical/narcotic involvement, electrolytes are normal, LFT normal. UA is pending; lyme negative, TSH normal. COVID test is pending- Negative Principal Diagnosis Complex migraine versus CVA, B12 deficiency Discharge Exam Constitutional WD/WN, vitals as above Eyes PERRL, conjunctivae normal, anicteric sclerae ENMT external ear and nose normal, oropharynx normal Neck trachea midline, no thyromegaly Respiratory normal respiratory effort, lungs clear to auscultation Cardiovascular RRR, no murmur, no edema Chest (Breasts) Chest: normal inspection of chest Gastrointestinal (Abdomen) normal bowel sounds, soft, nontender, no hepatosplenomegaly Musculoskeletal Extremities: extremities normal to inspection; no cyanosis and no clubbing Skin no rashes, warm and dry Neurologic moves all extremities and awake; no focal motor deficits Psychiatric A+Ox3, euthymic affect Lymphatic no lymphedema Discharge Data Allergies Allergy/AdvReac Type Severity Reaction Status Date / Time hydrocodone Allergy Intermediate Confusion Verified 06/11/21 20:18 [From Lorcet (hydrocodone)] nitrofurantoin Allergy Intermediate Chest Pain Verified 06/11/21 20:18 [From Macrobid] tramadol Allergy Mild Itchiness Verified 06/11/21 20:18 Cephalosporins Allergy Unknown Unknown Verified 06/11/21 20:18 Sulfa (Sulfonamide Allergy Unknown Unknown Verified 06/11/21 20:18 Antibiotics) azathioprine [From Imuran] AdvReac Intermediate Liver Unverified 06/12/21 14:28 Failure Consultations 06/12/21 15:10 ED Decision to Admit Stat 06/12/21 18:19 Consult Neurology Routine Ordered Studies 06/12/21 13:34 CT head/brain wo con Stat 06/12/21 15:10 MR brain wo con Stat Hospital Course (1) Acute right-sided weakness: Right sided weakness, paraesthesia, facial droop, symptoms resolved after admission - MRI- No mass, hematoma, midline shift or evidence of acute infarction- T2 hyperintensity within the white matter - T2 hyperintensity within the white matter suggestive of complex migraine- as well as resolution of symptoms -Had very similar episode last year and had somewhat of a hypercoagulable work- up that was negative, but was not complete -B12 level low-replaced - Lyme IgG/IgM negative - TSH normal Lipid panel is excellent, continue statin -Seen by neurology-most likely complex migraine, but cannot completely rule out stroke-add Plavix for 3 weeks as dual antiplatelet therapy and then discontinue aspirin after that. -Given history of 4 miscarriages in the past and underlying autoimmune disorder, will repeat entire hypercoagulable work-up, MADHU, ESR, [id number] with PCP for results after discharge -Avoid triptans in the future -Follow-up with her neurologist at [facility] for further management -No need to repeat echocardiogram as she had it last year and has no ASD -We will arrange for 30-day cardiac event monitor after discharge -Continue vitamin B12 replacement, her recent homocysteine level at [facility] lab was normal at 9 (2) History of CVA (cerebrovascular accident): Patient with history of CVA vs. migraine in spring where she received tPA - She was also started on BP control with metoprolol, Plavix and asa- which has been down to asa, and statin - Follows with [facility] neurology (3) GERD (gastroesophageal reflux disease): Continue Protonix 40mg daily (4) Lupus (systemic lupus erythematosus): Diagnosed in [facility] ~5 years ago. - Patient is on hydrochloroquine - MADHU screen 2019 positive, repeating now Repeating hypercoagulable work-up as above (5) Hyperlipidemia: Continue statin goal LDL <70 (6) History of migraine: As above (7) DM II (diabetes mellitus, type II), controlled: Hold Metformin for 72 hours after receiving contrast dye from CT scan (8) DJD (degenerative joint disease): MRI spine 07/22- performed for right sided weakness (9) B12 deficiency: Disposition-stable for discharge home Total Time Total Time Spent Total Time Spent (In Minutes): 40 min Discharge Plan Discharge Items Patient Disposition: Home - Self-Care Reason For Visit: RIGHT SIDED WEAKNESS, FACIAL DROOP Discharge Diagnosis: Complex migraine versus TIA Condition on Discharge: Good Activity: Resume your previous activity Non-emergency contact: Primary Care Provider Call non-emergency contact if: you have any medication questions and your sy mptoms worsen Follow-up/Referrals: Marcy Matthews CRNP [Primary Care Provider] - (Follow-up within 1 to 2 weeks.) Diet: Carb Consistent or DM2 Addtl Attending Provider Instructions: You were admitted with right-sided weakness and had a brain MRI which was negative for stroke. The neurologist could not rule out TIA for sure although it seems less likely since her symptoms were ongoing for 2 days and the MRI of the brain did not show a stroke. Nonetheless, Plavix will be added to your baby aspirin once daily for the next 3 weeks, and then discontinue the baby aspirin after that. He should remain on Plavix daily after that. A panel of blood work to check for thickened blood was sent out and the results will take approximately 1 week to return. Please follow-up with your primary care provider and agricultural purchasing agent as well as your neurologist after discharge for these results. A 30-day cardiac event monitor will also be arranged for you and most likely will be sent to your house. You will receive further instructions on this from our nurse navigator. Your B12 level was low and you are given an injection of B12. Please continue on oral B12 supplements and talk to your primary care provider about continuing intramuscular injections in the office if your levels do not come up appropriately. Risk Factors for Stroke: You can reduce your chances of stroke by working with your medical provider to adopt a healthy lifestyle. Some specific ways to lower your chance of stroke are: * If you are a smoker, now is the time to stop smoking cigarettes * If you are diabetic, improve the control of your blood sugars * Avoid excessive amounts of alcohol * Control high blood pressure * Lose weight if you are overweight * Be sure to lead an active lifestyle * Eat a healthy diet low in salt, cholesterol and fat You should know about other risk factors for stroke that you are unable to control. These include: * Age 55 years or older * Male gender * Certain racial groups: , or / * Family History of Stroke, Mini stroke or Heart Attack * Sickle Cell Disease Follow Up: It is important for you to keep your follow up appointments with your medical provider. Who to Call and When: Medical Emergencies: Call 911 immediately if you experience any of the following warning signs and symptoms of Stroke: * Sudden numbness or weakness of the face, arm or leg, especially on one side of the body * Sudden confusion, trouble speaking or understanding * Sudden trouble seeing in one or both eyes * Sudden trouble walking, dizziness, loss of balance or coordination * Sudden severe headache with no cause Do not delay calling 911 if you experience any warning signs or symptoms of a stroke. Delay in seeking medical attention may affect what treatments can be given to you. . Pending Studies at Discharge: Yes (Hypercoagulable panel, MADHU, CRP, ESR) Stand-Alone Forms: [facility], Smoking Cessation Medications and DC Order Prescriptions: New clopidogrel 75 mg Tablet 75 mg PO QAM Qty: 30 RF: 0 cyanocobalamin (vitamin B-12) 1,000 mcg capsule 1,000 mcg PO DAILY Qty: 30 RF: 0 Continued cyclobenzaprine 10 mg Tablet 10 mg PO Q8H PRN (Reason: Muscle Spasm) RF: 0 hydroxychloroquine 200 mg tablet 400 mg PO QAM RF: 0 coQ10 (ubiquinol) 200 mg Capsule 200 mg PO QAM RF: 0 biotin 5 mg Tablet 5 mg PO DAILY RF: 0 metformin 500 mg Tablet 500 mg PO HS RF: 0 atorvastatin 20 mg Tablet 20 mg PO DAILY RF: 0 folic acid 1 mg tablet 2 mg PO DAILY RF: 0 pantoprazole [Protonix] 40 mg tablet,delayed release (DR/EC) 40 mg PO HS RF: 0 metoprolol succinate 25 mg tablet extended release 24 hr 25 mg PO HS RF: 0 Juice Plus Liquid 1 ea PO QAM RF: 0 L-Arginine(alpha-ketoglutarat) 350 mg Tablet Extended Release 500 mg PO DAILY RF: 0 cholecalciferol (vitamin D3) [Vitamin D3] 125 mcg (5,000 unit) Tablet 125 mcg PO DAILY RF: 0 aspirin 81 mg Tablet,Delayed Release (Dr/Ec) 81 mg PO DAILY 21 Days Qty: 0 RF: 0 Discharge Orders: Discharge Order (Routine); Ordered 06/13/21 Ordered By: Elise Moya Admission Data Admit Date/Time: 06/12/21 17:08 Attending Provider: Elise Moya Admit Provider: Georgi Simpson Primary Care Provider: Marcy Matthews Other Providers: Georgi Simpson ; Isacc Rm Coding Level of Care Code D/C DAY MANAGEMENT >30 MINS Diagnoses Acute right-sided weakness R53.1 History of CVA (cerebrovascular accident) Z86.73 GERD (gastroesophageal reflux disease) K21.9 Lupus (systemic lupus erythematosus) M32.9 Systemic lupus erythematosus organ involvement: unspecified Systemic lupus erythematosus type: unspecified Hyperlipidemia E78.5 History of migraine Z86.69 DM II (diabetes mellitus, type II), controlled E11.9 DJD (degenerative joint disease) M19.90 B12 deficiency E53.8
--- NOTE | 2021-06-13 14:26 | Pharmacy Report ---
Pharmacist Stroke Counseling - Date of Service June 13, 2021 - Scope: Pharmacy has been consulted to provide medication discharge counseling for this patient admitted with possible TIA vs migraine as per the Pharmacist Discharge Counseling for Stroke Patients Protocol. - Medications on Discharge: Home Medications Medication Instructions Recorded Confirmed coQ10 (ubiquinol) 200 mg capsule 200 mg PO QAM 08/27/18 06/12/21 hydroxychloroquine 200 mg tablet 400 mg PO QAM 08/27/18 06/12/21 cyclobenzaprine 10 mg tablet 10 mg PO Q8H PRN 03/09/20 06/12/21 biotin 5 mg tablet 5 mg PO DAILY 07/09/20 06/12/21 atorvastatin 20 mg tablet 20 mg PO DAILY 02/27/21 06/12/21 folic acid 1 mg tablet 2 mg PO DAILY 02/27/21 06/12/21 metformin 500 mg tablet 500 mg PO HS 02/27/21 06/12/21 pantoprazole 40 mg tablet,delayed 40 mg PO HS 02/27/21 06/12/21 release (Protonix) arginine oxoglurate 350 mg 500 mg PO DAILY 06/11/21 06/12/21 tablet,extended release (L-Arginine (alpha-ketoglutarate)) metoprolol succinate 25 mg 25 mg PO HS 06/11/21 06/12/21 tablet,extended release 24 hr nutritional supplement-fiber oral 1 ea PO QAM 06/11/21 06/12/21 liquid cholecalciferol (vitamin D3) 125 125 mcg PO DAILY 06/12/21 06/12/21 mcg (5,000 unit) tablet (Vitamin D3) New Rx's Medication Instructions Recorded aspirin 81 mg tablet,delayed 81 mg PO DAILY 21 Days #0 tab 06/13/21 release clopidogrel 75 mg tablet 75 mg PO QAM #30 tab 06/13/21 cyanocobalamin (vitamin B-12) 1,000 mcg PO DAILY #30 cap 06/13/21 1,000 mcg capsule - Action: The above medications, specifically ones for stroke prophylaxis, have been reviewed in detail with the patient prior to discharge. This includes indication, common adverse reactions, drug interactions, and medication administration. Medication counseling has been employed using the teach-back method to ensure understanding. - Outcome: The patient has demonstrated understanding of the medications. Additional comments: Spoke over the phone with patient today- she was very pleasant and receptive to counseling. Reviewed new medication to prevent stroke including Aspirin, Plavix and Atorvastatin. Emphasized that ASA and Plavix combination is for 3 weeks only then continue only on Plavix. Discussed why they are being used and common side effects in great detail. Reviewed how to use the medications, what to do if doses are missed, common drug interactions, common side effects, what to watch out for while using the medications. Pt verbalized understanding and restated the pro points of each medication. Thank you for allowing pharmacy to be involved in the care of this patient. Please call [phone] with any additional questions
--- NOTE | 2021-06-14 06:31 | Electrocardiogram Report ---
Test Reason : Blood Pressure : / mmHG Vent. Rate : 059 BPM Atrial Rate : 059 BPM P-R Int : 148 ms QRS Dur : 076 ms QT Int : 444 ms P-R-T Axes : 019 -01 027 degrees QTc Int : 439 ms Sinus bradycardia Otherwise normal ECG When compared with ECG of 11-JUN-2021 19:53, No significant change was found Confirmed by Russell Batista ([id number]) on 06/14/2021 6:31:03 AM Referred By: Confirmed By:Russell Batista
[2021-06-20 17:36] LABS: Factor 5 Mutation NEGATIVE
[2021-06-21 00:57] LABS: Anti Cardiolipin Ab IgG <2.0 GPL-U/mL; Anti Cardiolipin Ab IgM <2.0 MPL-U/mL; Anti Nuclear Antibody Screen NEGATIVE (NEGATIVE); Anti-Thrombin III Activity 112 % normal (80-135); B2 Glycoprotein IgG <2.0 U/mL (<20.0); B2 Glycoprotein IgM <2.0 U/mL (<20.0); Methylmalonic Acid 132 nmol/L (87-318); PTT LA Screen 33 sec (<=40); Protein S Functional(Activity) 102 % (60-140)
== END 2021-06-13 14:15 | disposition home or self-care (01) ==
LOC: ED 12:36 → EDINP 17:08 → INTOOBSV 17:08 → SUATTDRO 17:08 → EDINP 17:24